=== PATIENT | male | born 1930 | race Caucasian/White ===

== ENCOUNTER 2018-02-26 06:12 | Inpatient (IN) | payer OTHER, MEDICARE ==
[2018-02-26] VITALS (8 sets, daily range): BP systolic 133–150; BP diastolic 56–78; PULSE 67–74; TEMP 36.6–37.4; O2SAT 94–100; Ht 180.3 cm; Wt 94.6 kg
[~2018-02-26] VITALS: Ht 180.3 cm; Wt 94.6 kg
[~2018-02-26 06:12] MED LIST: ACET-1256 PO; ALLO1TAB51 PO; ALPR-411 PO; AMOX875T PO; APR50 PO; ASPCH81 PO; ASTN; ATEN50TA PO; CLBCRM30 EXT; DIPH25CA5 PO; FLM4 PO; LISI-461 PO; LUTE15CA OR; POLY335025 OR; PRCSR90 PO; SIMV20TA2 PO; TRAM-10 PO
--- NOTE | 2018-02-26 06:53 | EMERGENCY ROOM VISIT NOTE ---
History Report prepared by Abida: Angel Salomon Under the Supervision of: Dr. Arnold Sanders M.D. First contact with patient: 06:44 Chief Complaint: VOMITING Stated Complaint: THROWING UP BLOOD Nursing Triage Summary: Pt brought in by EMS. Pt woke up at 3 am with abdominal pain and vomiting blood. Pt vomited blood x 2. Pt alert and oriented. Denies any pain now. Pt reports he was treated a week ago for a sinus infection. History of Present Illness The patient is an 87 year old male with a history of hypertension and kidney issues who presents to the Emergency Room via EMS with complaints of episodes of "spitting up blood" that started around 4 hours ago. He states that he was seen at his doctor's office 3 days ago, due to having trouble spitting up blood this week. The patient says that he has been coughing up bloody mucous. He states that he was given antibiotics, but was not told what was wrong. He did have an x-ray there. The patient's family notes that since last fall, the patient has been having problems with phlegm in the back of his throat and gagging. The patient says that around 0300 this morning, he woke up and was coughing and "blood flew everywhere when coughing". Per the patient's family, there were "big strands of blood", and there were "long strings". The patient adds that he was sweaty this morning, and was lightheaded and dizzy. He denies any chest pain, shortness of breath, pain with breathing, abdominal pain, sore throat, or fevers. The patient notes that his stools are chronically black. He is not on a blood thinner. He notes that he has not had any known recent sick contacts. He has a history of smoking. Source of History: patient, family Onset: Around 4 hours ago Position: other (global) Quality: other ("spitting up blood") Timing: other (episodes) Associated Symptoms: + diaphoresis, + cough, No fevers, No sorethroat, No chest pain, No SOB, No abdominal pain Note: Associated symptoms: Lightheaded, dizzy. Review of Systems See HPI for pertinent positives & negatives. A total of 10 systems reviewed and were otherwise negative. 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 Nurse's notes were reviewed and I agree with. Family History Cancer FH: CAD (coronary artery disease) FATHER (passed at age 48 from [place]) BROTHER (passed in his 70s from [place]) FHx: Parkinson's disease BROTHER Gallbladder disease Hypertension Social History Smoking Status: Former Smoker Alcohol Use: none Marital Status: Housing Status: lives with significant other Occupation Status: retired Current/Historical Medications Scheduled Allopurinol (Zyloprim), 100 MG PO DAILY Amoxicillin & Pot Clavulanate (Augmentin 875-125 mg), 1 TAB PO BID Aspirin (Aspirin Ec), 81 MG PO DAILY Atenolol (Tenormin), 50 MG PO BID Duloxetine HCl (Cymbalta), 1 CAP PO DAILY Hydralazine HCl (Hydralazine HCl), 100 MG PO TID Lisinopril (Zestril), 10 MG PO DAILY Nifedipine (Nifedipine ER), 90 MG PO DAILY Simvastatin (Zocor), 20 MG PO QPM Scheduled PRN Polyethylene Glycol 3350 (Miralax), 17 GM OR DAILY PRN for Constipation Tramadol (Ultram), 50 MG PO Q6 PRN for Pain Allergies Coded Allergies: Iodinated Contrast Media (Verified Allergy, Severe, ANAPHALXIS, 02/26/18) Nitrofurantoin (Verified Allergy, Severe, "throat swelled shut", 02/26/18) Clopidogrel (Verified Allergy, Intermediate, "flu s/s", 02/26/18) Physical Exam Vital Signs Date Time Temp Pulse Resp B/P (MAP) Pulse Ox O2 Delivery O2 Flow Rate FiO2 3/31/18 07:22 64 20 151/57 98 Room Air 02/26/18 06:48 68 02/26/18 06:12 36.6 69 20 142/60 97 Room Air Physical Exam General: Non-ill appearing older male in no acute distress. HEENT: Normal cephalic atraumatic. Pupils are equal round and reactive to light. Extraocular movements are intact. Oropharynx is pink with moist mucous membranes. No swelling of the mouth lips or tongue. Neck: Supple with a midline trachea. No meningeal signs or stiffness, no JVD or bruits. No Stridor. Chest: Clear to auscultation bilaterally. No wheezes or rhonchi. No increased work of breathing. Heart: regular rate and rhythm. Abdomen: Soft nontender, nondistended without rebound guarding or rigidity. Rectal: Melanotic stool which was Guaiac positive. Extremities: No cyanosis clubbing or edema. No calf tenderness or assymetry Spine/Back. Non tender to palpation. No CVA tenderness Skin: Good turgor without rashes. Neurologic exam: Cranial nerves two through 12 are intact. Motor and sensation are intact and symmetrical throughout. Medical Decision & Procedures ER Provider Diagnostic Interpretation: Radiology results as stated below per my review and radiologist interpretation: SINGLE VIEW CHEST CLINICAL HISTORY: Atypical chest pain. FINDINGS: 2 AP, portable, upright chest radiographs are compared to study dated 06/02/2014. Correlation is made with chest CT dated 05/19/2012. The examination is degraded by portable technique and patient rotation. The heart is enlarged and there is atherosclerotic calcification of the thoracic aorta. The pulmonary vasculature is noncongested. Chronic interstitial thickening and elevation of the right hemidiaphragm are similar to previous. Left basilar atelectasis is noted. There is no airspace consolidation or large pleural effusion. No pneumothorax is seen. The skeletal structures are osteopenic. The bony thorax is grossly intact. IMPRESSION: Cardiomegaly with no acute cardiopulmonary abnormality. Electronically signed by: Kobe Salcedo M.D. 02/26/2018 7:22 AM Dictated Date/Time: 02/26/2018 7:[address] SCAN OF THE CHEST, ABDOMEN, AND PELVIS WITHOUT IV CONTRAST CLINICAL HISTORY: Atypical chest pain. Generalized abdominal pain. COMPARISON STUDY: Chest CT dated 05/19/2012. Chest x-ray dated 02/26/2018. Abdominal radiographs dated 06/03/2014. TECHNIQUE: CT scan of the chest, abdomen, and pelvis was performed from the thoracic inlet to the proximal femora. Images are reviewed in the axial, sagittal, and coronal planes. IV contrast was not administered as per the referring clinician. Note that the examination was performed in significantly suboptimal fashion without oral and IV contrast. Automated dose control exposure was utilized. A dose lowering technique was utilized adhering to the principles of ALARA. The abdominal CT is significantly degraded by motion artifact. The abdominal CT is also degraded by streak artifact from extensive lumbar spinal fusion hardware and hip arthroplasties. CT DOSE: 1269.50 mGy.cm FINDINGS: CHEST: Thyroid: Imaged portions of the thyroid gland are normal in size and attenuation. Thoracic aorta: There is advanced atherosclerotic calcification of the thoracic aorta, which is normal in caliber and demonstrates standard 3-vessel arch anatomy. Heart: The heart is top normal in size and without pericardial effusion. The coronary arteries are densely calcified. There is diminished attenuation of the cardiac blood pool as compared to the myocardium suggesting anemia. The pulmonary trunk is normal in caliber. Lungs and pleural spaces: There is elevation of right hemidiaphragm. Mild subpleural reticulation and dependent atelectasis is present at the lung bases. No airspace consolidation or pleural effusion is identified. The trachea and central airways are clear. Scattered calcified granulomas are observed. A 5 mm nodule in the lingula on image #182 is unchanged dating back to 2011 and of doubtful significance. Mediastinum: There is no mediastinal lymphadenopathy. Kamille: Not well assessed without IV contrast. Axillae: There is no axillary lymphadenopathy. Bony thorax: The skeletal structures are osteopenic. No lytic or blastic lesions are identified. ABDOMEN AND PELVIS: Liver: The unenhanced liver is normal in size, contour, and attenuation. There is no intrahepatic or ductal dilatation. Gallbladder: Contracted versus surgically absent. Spleen: Normal in size and attenuation. Pancreas: The unenhanced pancreas is atrophic and grossly unremarkable. Adrenal glands: Unremarkable. Kidneys: The unenhanced kidneys images are atrophic and without hydronephrosis. There are renovascular calcifications. No renal calculi are identified. There is no evidence of contour deforming mass lesion. Abdominal vasculature: The abdominal aorta is normal in course and caliber noting advanced atherosclerotic calcification. Bilateral renal artery stents are identified. Stomach and bowel: A small hiatal hernia is noted. The duodenum is normal in configuration. No bowel obstruction is seen. There are scattered colonic diverticula without CT evidence of acute diverticulitis. The appendix is not identified and reported surgically absent. Peritoneum: There is no intraperitoneal free air or abdominal ascites. There is a small fat-containing umbilical hernia. Lymphadenopathy: None. Pelvic viscera: Evaluation of the pelvis is significantly degraded by streak artifact from bilateral hip arthroplasties. The bladder is normal as visualized. The prostate gland is diminutive versus surgically absent. AP prosthesis is in place. Skeletal structures: The skeletal structures are osteopenic. No lytic or blastic lesions are seen. Bilateral hip arthroplasties are in place. There are postoperative changes from L2 -S1 spinal fusion. IMPRESSION: 1. Significantly suboptimal examination without oral and IV contrast. The abdominal CT is also significantly degraded by streak and motion artifact. 2. There is no airspace consolidation or pleural effusion. 3. There are no acute infectious or inflammatory findings in the abdomen or pelvis. 4. Additional findings as above. Electronically signed by: Kobe Salcedo M.D. 02/26/2018 8:58 AM Dictated Date/Time: 02/26/2018 8:[address] SCAN OF THE CHEST, ABDOMEN, AND PELVIS WITHOUT IV CONTRAST CLINICAL HISTORY: Atypical chest pain. Generalized abdominal pain. COMPARISON STUDY: Chest CT dated 05/19/2012. Chest x-ray dated 02/26/2018. Abdominal radiographs dated 06/03/2014. TECHNIQUE: CT scan of the chest, abdomen, and pelvis was performed from the thoracic inlet to the proximal femora. Images are reviewed in the axial, sagittal, and coronal planes. IV contrast was not administered as per the referring clinician. Note that the examination was performed in significantly suboptimal fashion without oral and IV contrast. Automated dose control exposure was utilized. A dose lowering technique was utilized adhering to the principles of ALARA. The abdominal CT is significantly degraded by motion artifact. The abdominal CT is also degraded by streak artifact from extensive lumbar spinal fusion hardware and hip arthroplasties. CT DOSE: 1269.50 mGy.cm FINDINGS: CHEST: Thyroid: Imaged portions of the thyroid gland are normal in size and attenuation. Thoracic aorta: There is advanced atherosclerotic calcification of the thoracic aorta, which is normal in caliber and demonstrates standard 3-vessel arch anatomy. Heart: The heart is top normal in size and without pericardial effusion. The coronary arteries are densely calcified. There is diminished attenuation of the cardiac blood pool as compared to the myocardium suggesting anemia. The pulmonary trunk is normal in caliber. Lungs and pleural spaces: There is elevation of right hemidiaphragm. Mild subpleural reticulation and dependent atelectasis is present at the lung bases. No airspace consolidation or pleural effusion is identified. The trachea and central airways are clear. Scattered calcified granulomas are observed. A 5 mm nodule in the lingula on image #182 is unchanged dating back to 2012 and of doubtful significance. Mediastinum: There is no mediastinal lymphadenopathy. Kamille: Not well assessed without IV contrast. Axillae: There is no axillary lymphadenopathy. Bony thorax: The skeletal structures are osteopenic. No lytic or blastic lesions are identified. ABDOMEN AND PELVIS: Liver: The unenhanced liver is normal in size, contour, and attenuation. There is no intrahepatic or ductal dilatation. Gallbladder: Contracted versus surgically absent. Spleen: Normal in size and attenuation. Pancreas: The unenhanced pancreas is atrophic and grossly unremarkable. Adrenal glands: Unremarkable. Kidneys: The unenhanced kidneys images are atrophic and without hydronephrosis. There are renovascular calcifications. No renal calculi are identified. There is no evidence of contour deforming mass lesion. Abdominal vasculature: The abdominal aorta is normal in course and caliber noting advanced atherosclerotic calcification. Bilateral renal artery stents are identified. Stomach and bowel: A small hiatal hernia is noted. The duodenum is normal in configuration. No bowel obstruction is seen. There are scattered colonic diverticula without CT evidence of acute diverticulitis. The appendix is not identified and reported surgically absent. Peritoneum: There is no intraperitoneal free air or abdominal ascites. There is a small fat-containing umbilical hernia. Lymphadenopathy: None. Pelvic viscera: Evaluation of the pelvis is significantly degraded by streak artifact from bilateral hip arthroplasties. The bladder is normal as visualized. The prostate gland is diminutive versus surgically absent. AP prosthesis is in place. Skeletal structures: The skeletal structures are osteopenic. No lytic or blastic lesions are seen. Bilateral hip arthroplasties are in place. There are postoperative changes from L2 -S1 spinal fusion. IMPRESSION: 1. Significantly suboptimal examination without oral and IV contrast. The abdominal CT is also significantly degraded by streak and motion artifact. 2. There is no airspace consolidation or pleural effusion. 3. There are no acute infectious or inflammatory findings in the abdomen or pelvis. 4. Additional findings as above. Electronically signed by: Kobe Salcedo M.D. 02/26/2018 8:58 AM Dictated Date/Time: 02/26/2018 8:46 AM Laboratory Results 02/26/18 06:32 Red Blood Count 2.82, Mean Corpuscular Volume 92.6, Mean Corpuscular Hemoglobin 31.6, Mean Corpuscular Hemoglobin Concent 34.1, Mean Platelet Volume 11.2, Neutrophils (%) (Auto) 71.0, Lymphocytes (%) (Auto) 15.7, Monocytes (%) (Auto) 9.4, Eosinophils (%) (Auto) 1.5, Basophils (%) (Auto) 0.2, Neutrophils # (Auto) 8.57, Lymphocytes # (Auto) 1.89, Monocytes # (Auto) 1.13, Eosinophils # (Auto) 0.18, Basophils # (Auto) 0.02 02/26/18 06:32 Test 02/26/18 06:32 02/26/18 07:09 White Blood Count 12.05 K/uL (4.8-10.8) Red Blood Count 2.82 M/uL (4.7-6.1) Hemoglobin 8.9 g/dL (14.0-18.0) Hematocrit 26.1 % (42-52) Mean Corpuscular Volume 92.6 fL (80-100) Mean Corpuscular Hemoglobin 31.6 pg (25-34) Mean Corpuscular Hemoglobin Concent 34.1 g/dl (32-36) Platelet Count 178 K/uL (130-400) Mean Platelet Volume 11.2 fL (7.4-10.4) Neutrophils (%) (Auto) 71.0 % Lymphocytes (%) (Auto) 15.7 % Monocytes (%) (Auto) 9.4 % Eosinophils (%) (Auto) 1.5 % Basophils (%) (Auto) 0.2 % Neutrophils # (Auto) 8.57 K/uL (1.4-6.5) Lymphocytes # (Auto) 1.89 K/uL (1.2-3.4) Monocytes # (Auto) 1.13 K/uL (0.11-0.59) Eosinophils # (Auto) 0.18 K/uL (0-0.5) Basophils # (Auto) 0.02 K/uL (0-0.2) RDW Standard Deviation 48.5 fL (36.4-46.3) RDW Coefficient of Variation 14.5 % (11.5-14.5) Immature Granulocyte % (Auto) 2.2 % Immature Granulocyte # (Auto) 0.26 K/uL (0.00-0.02) Red Blood Cell Morphology Unremarkable Anion Gap 8.0 mmol/L (3-11) Est Creatinine Clear Calc Drug Dose 31.3 ml/min Estimated GFR () 34.9 Estimated GFR (Non- 30.1 BUN/Creatinine Ratio 34.9 (10-20) Calcium Level 7.8 mg/dl (8.5-10.1) Total Bilirubin 0.3 mg/dl (0.2-1) Direct Bilirubin < 0.1 mg/dl (0-0.2) Aspartate Amino Transf (AST/SGOT) 15 U/L (15-37) Alanine Aminotransferase (ALT/SGPT) 20 U/L (12-78) Alkaline Phosphatase 54 U/L (45-117) Total Protein 5.2 gm/dl (6.4-8.2) Albumin 2.6 gm/dl (3.4-5.0) Lipase 137 U/L (73-393) Bedside Troponin I < 0.030 ng/ml (0-0.045) Laboratory studies as stated above per my review. Medications Administered Medications (Trade) Dose Ordered Sig/Juan Carlos Route Start Time Stop Time Status Last Admin Dose Admin Sodium Chloride 250 ml @ 999 mls/hr Q16M STAT IV 02/26/18 06:59 02/26/18 07:14 DC 02/26/18 07:16 999 MLS/HR Sodium Chloride 1,000 ml @ 100 mls/hr Q10H STAT IV 02/26/18 06:59 02/26/18 09:33 DC 02/26/18 07:16 100 MLS/HR Pantoprazole Sodium 80 mg/ Dextrose 120 ml @ 480 mls/hr 0830 IV 02/26/18 08:30 02/26/18 08:44 DC 02/26/18 08:43 480 MLS/HR Ondansetron HCl (Zofran Inj) 4 mg NOW STAT IV 02/26/18 08:43 02/26/18 08:44 DC 02/26/18 08:49 4 MG ECG Per My Interpretation Indication: other (dizzy) Rate (beats per minute): 64 Rhythm: normal sinus Findings: PAC (occasional), no acute ischemic change Comparison ECG Date: compared to June 02 2014, PAC's now present ED Course 0644: Past medical records reviewed. The patient was evaluated in room B6, and a complete history and physical examination were performed. 0659: NSS 1000 ml @ 100 mls/hr IV, NSS 250 ml @ 999 mls/hr IV. 0745: Upon reevaluation, the patient is resting. I discussed the results and treatment plan with the patient. He verbalized agreement of the treatment plan. The patient will be evaluated for further management. 0755: Protonix IV Bolus/Drip 1 ea IV. 0818: Discussed the patient's case with Dr. Jimbo Theodore light truck driver. The patient will be evaluated for further management. 0830: Pantoprazole Sodium 80 mg/Dextrose 120 ml @ 480 mls/hr IV. 0845: Pantoprazole Sodium 40 mg/Dextrose 100 ml @ 200 mls/hr IV. Medical Decision Differentials include, but are not limited to; hemoptysis, hematemesis, sinus infection, pulmonary disease, malignancy, tuberculosis. This patient comes in as described above. He was placed in room B8. She has with the family's described as hemoptysis. He's also had black stool for several weeks. Because of the possible hemoptysis I put on respiratory isolation present . At present, he is asymptomatic. He has stable vital signs. I did a rectal exam and is melanotic stool which is guaiac positive. His hemoglobin has dropped to the 8 range significantly since last blood work. He' s been type and screen. I did put him on Protonix IV bolus and drip. Chest x- ray does not show any cavitary lesions. His BUN and creatinine are elevated compared to baseline. I did order noncontrast CAT scan of the chest and abdomen. I have consulted with Dr. Cobos and I do think he needs to be admitted for GI bleed and possible hemoptysis as well. It may be that the blood is coming from this GI tract or could be 2 separate issues. He will be admitted. CAT scan of the abdomen and chest and pelvis do not reveal any abnormalities. Presacral he nothing cavitary I do not think this is tuberculosis was his drop in hemoglobin this appears to be more of a GI bleed. He was admitted. Medication Reconcilliation Current Medication List: was personally reviewed by me Blood Pressure Screening Patient's blood pressure: Elevated blood pressure Blood pressure disposition: Elevated BP felt to be situational Consults Time Called: 08 Consulting Physician: Dr. Jimbo Theodore light truck driver Returned Call: [id number] Discussed the patient's case with Dr. Jimbo Theodore light truck driver. The patient will be evaluated for further management. Impression Primary Impression: GI bleed Additional Impression: Anemia Scribe Attestation The scribe's documentation has been prepared under my direction and personally reviewed by me in its entirety. I confirm that the note above accurately reflects all work, treatment, procedures, and medical decision making performed by me. Departure Information Dispostion Being Evaluated By Hospitalist Referrals Ninfa Philip M.D. (PCP) Patient Instructions My [facility] Problem Qualifiers Primary Impression: GI bleed GI bleed type/associated pathology: unspecified gastrointestinal hemorrhage type Qualified Codes: K92.2 - Gastrointestinal hemorrhage, unspecified
[2018-02-26] MEDS ORDERED: SODIUM CHLORIDE 0.9% 1000ML 250 ML IV STA (06:59)
[2018-02-26] MEDS ORDERED: SODIUM CHLORIDE 0.9% 1000ML 1,000 ML IV STA (06:59)
[2018-02-26] MEDS ORDERED: LISI-461 PO (07:06)
[2018-02-26] MEDS ORDERED: ASPI81TA28 PO (07:06)
[2018-02-26] MEDS ORDERED: ALLO100T PO (07:06)
[2018-02-26 07:09] LABS: BASO % 0.2 %; BASO ABS # 0.02 K/uL (0-0.2); EOS % 1.5 %; EOS ABS # 0.18 K/uL (0-0.5); HEMATOCRIT 26.1 % (42-52); HEMOGLOBIN 8.9 g/dL (14.0-18.0); IG# 0.26 K/uL (0.00-0.02); LYMPH % 15.7 %; LYMPH ABS # 1.89 K/uL (1.2-3.4); MEAN CELL VOLUME 92.6 fL (80-100); MEAN CORPUSCULAR HEMOGLOBIN 31.6 pg (25-34); MEAN CORPUSCULAR HGB CONC 34.1 g/dl (32-36); MEAN PLATELET VOLUME 11.2 fL (7.4-10.4); MONO % 9.4 %; MONO ABS # 1.13 K/uL (0.11-0.59); NEUT ABS # 8.57 K/uL (1.4-6.5); PLATELET COUNT 178 K/uL (130-400); RED CELL DISTRIBUTION WIDTH CV 14.5 % (11.5-14.5); RED CELL DISTRIBUTION WIDTH SD 48.5 fL (36.4-46.3); WHITE BLOOD COUNT 12.05 K/uL (4.8-10.8)
[2018-02-26 07:16] LABS: ALBUMIN 2.6 gm/dl (3.4-5.0); ALT/SGPT 20 U/L (12-78); BLOOD UREA NITROGEN 69 mg/dl (7-18); CALCIUM 7.8 mg/dl (8.5-10.1); CARBON DIOXIDE 23 mmol/L (21-32); CREATININE 1.96 mg/dl (0.60-1.40); GLUCOSE 104 mg/dl (70-99); LIPASE 137 U/L (73-393); POTASSIUM 5.4 mmol/L (3.5-5.1); SODIUM 141 mmol/L (136-145)
[2018-02-26 07:19] LABS: ALKALINE PHOSPHATASE 54 U/L (45-117); AST/SGOT 15 U/L (15-37); TOTAL PROTEIN 5.2 gm/dl (6.4-8.2)
--- NOTE | 2018-02-26 07:23 | DIAGNOSTIC IMAGING REPORT ---
SINGLE VIEW CHEST CLINICAL HISTORY: Atypical chest pain. FINDINGS: 2 AP, portable, upright chest radiographs are compared to study dated 06/02/2014. Correlation is made with chest CT dated 05/19/2012. The examination is degraded by portable technique and patient rotation. The heart is enlarged and there is atherosclerotic calcification of the thoracic aorta. The pulmonary vasculature is noncongested. Chronic interstitial thickening and elevation of the right hemidiaphragm are similar to previous. Left basilar atelectasis is noted. There is no airspace consolidation or large pleural effusion. No pneumothorax is seen. The skeletal structures are osteopenic. The bony thorax is grossly intact. IMPRESSION: Cardiomegaly with no acute cardiopulmonary abnormality. Electronically signed by: Kobe Salcedo M.D. 02/26/2018 7:22 AM Dictated Date/Time: 02/26/2018 7:21 AM
[2018-02-26] MEDS ORDERED: PANTOprazole INJ 80 MG in DEXTROSE 5% 100ML IV SCH ×2 (08:30→09:45)
[2018-02-26] MEDS ORDERED: ONDANSETRON INJ 2 MG/ML 2 ML VIAL IV STA (08:43)
[2018-02-26] MEDS ORDERED: ONDANSETRON INJ 2 MG/ML 2 ML VIAL IV PRN ×2 (08:45→14:00)
[2018-02-26] MEDS ORDERED: PANTOprazole INJ 40 MG in DEXTROSE 5% 100ML IV SCH ×2 (08:45→10:00)
--- NOTE | 2018-02-26 08:59 | DIAGNOSTIC IMAGING REPORT ---
CT SCAN OF THE CHEST, ABDOMEN, AND PELVIS WITHOUT IV CONTRAST CLINICAL HISTORY: Atypical chest pain. Generalized abdominal pain. COMPARISON STUDY: Chest CT dated 05/19/2012. Chest x-ray dated 02/26/2018. Abdominal radiographs dated 06/03/2014. TECHNIQUE: CT scan of the chest, abdomen, and pelvis was performed from the thoracic inlet to the proximal femora. Images are reviewed in the axial, sagittal, and coronal planes. IV contrast was not administered as per the referring clinician. Note that the examination was performed in significantly suboptimal fashion without oral and IV contrast. Automated dose control exposure was utilized. A dose lowering technique was utilized adhering to the principles of ALARA. The abdominal CT is significantly degraded by motion artifact. The abdominal CT is also degraded by streak artifact from extensive lumbar spinal fusion hardware and hip arthroplasties. CT DOSE: 1269.50 mGy.cm FINDINGS: CHEST: Thyroid: Imaged portions of the thyroid gland are normal in size and attenuation. Thoracic aorta: There is advanced atherosclerotic calcification of the thoracic aorta, which is normal in caliber and demonstrates standard 3-vessel arch anatomy. Heart: The heart is top normal in size and without pericardial effusion. The coronary arteries are densely calcified. There is diminished attenuation of the cardiac blood pool as compared to the myocardium suggesting anemia. The pulmonary trunk is normal in caliber. Lungs and pleural spaces: There is elevation of right hemidiaphragm. Mild subpleural reticulation and dependent atelectasis is present at the lung bases. No airspace consolidation or pleural effusion is identified. The trachea and central airways are clear. Scattered calcified granulomas are observed. A 5 mm nodule in the lingula on image #182 is unchanged dating back to 2011 and of doubtful significance. Mediastinum: There is no mediastinal lymphadenopathy. Kamille: Not well assessed without IV contrast. Axillae: There is no axillary lymphadenopathy. Bony thorax: The skeletal structures are osteopenic. No lytic or blastic lesions are identified. ABDOMEN AND PELVIS: Liver: The unenhanced liver is normal in size, contour, and attenuation. There is no intrahepatic or ductal dilatation. Gallbladder: Contracted versus surgically absent. Spleen: Normal in size and attenuation. Pancreas: The unenhanced pancreas is atrophic and grossly unremarkable. Adrenal glands: Unremarkable. Kidneys: The unenhanced kidneys images are atrophic and without hydronephrosis. There are renovascular calcifications. No renal calculi are identified. There is no evidence of contour deforming mass lesion. Abdominal vasculature: The abdominal aorta is normal in course and caliber noting advanced atherosclerotic calcification. Bilateral renal artery stents are identified. Stomach and bowel: A small hiatal hernia is noted. The duodenum is normal in configuration. No bowel obstruction is seen. There are scattered colonic diverticula without CT evidence of acute diverticulitis. The appendix is not identified and reported surgically absent. Peritoneum: There is no intraperitoneal free air or abdominal ascites. There is a small fat-containing umbilical hernia. Lymphadenopathy: None. Pelvic viscera: Evaluation of the pelvis is significantly degraded by streak artifact from bilateral hip arthroplasties. The bladder is normal as visualized. The prostate gland is diminutive versus surgically absent. AP prosthesis is in place. Skeletal structures: The skeletal structures are osteopenic. No lytic or blastic lesions are seen. Bilateral hip arthroplasties are in place. There are postoperative changes from L2 -S1 spinal fusion. IMPRESSION: 1. Significantly suboptimal examination without oral and IV contrast. The abdominal CT is also significantly degraded by streak and motion artifact. 2. There is no airspace consolidation or pleural effusion. 3. There are no acute infectious or inflammatory findings in the abdomen or pelvis. 4. Additional findings as above. Electronically signed by: Kobe Salcedo M.D. 02/26/2018 8:58 AM Dictated Date/Time: 02/26/2018 8:46 AM
[2018-02-26] MEDS ORDERED: OCTREOTIDE IV BOLUS & DRIP IV STA (09:17)
[2018-02-26] MEDS ORDERED: DULO-24 PO (09:22)
--- NOTE | 2018-02-26 09:42 | History and Physical ---
History & Physical Date & Time of Service: Feb 26, 2018 at 09:19 Chief Complaint: Throwing Up Blood Primary Care Physician: Ninfa Philip M.D. History of Present Illness Source: patient, family, clinic records, hospital records This is an 87 year old male with a PMH of renal artery stenosis s/p bilateral stents, difficult to control hypertension, CKD stage 3, carotid artery stenosis s/p R carotid endarterectomy, hyperlipidemia, previous lumbar surgery and chronic low back pain - presents with a few day history of hemoptysis. As per patient, he went to his primary care because he saw streaks of blood and mucous speckled with blood. He was prescribed prednisone and Augmentin at that time for possible bronchitis and discharged home; he completed his five day course of prednisone. Last evening (02/25), one night prior to arrival, his bleeding acutely worsened. States he woke up with excessive amounts of blood, but is unsure if he was vomiting this up or coughing this up. Does state he noted dark stools for years, but may have become darker in the acute setting. States he had multiple episodes through the night and then presented to the ED. His main complaints this morning were nausea; denies abdominal pain. States he does not drink, and last smoked over 45 years prior. Denies excessive NSAID use; states he uses Tramadol and Tylenol intermittently for chronic low back pain. Noted to have a significant drop in Hgb upon arrival to the ED from one year prior. Stool positive for occult blood. +melena. Started on fluids, Protonix drip, and Zofran for nausea. States he feels weak, dizzy and "lousy". Past Medical/Surgical History Medical Problems: (1) Carotid artery stenosis (2) Carpal tunnel syndrome on both sides (3) CKD (chronic kidney disease), stage II (4) Gout (5) HLD (hyperlipidemia) (6) HTN (hypertension) (7) Ileus (8) Lumbar stenosis with neurogenic claudication (9) Macular degeneration, bilateral (10) Prostate cancer (11) Prostate removal (12) Renal artery stenosis (13) Urinary retention (14) Urinary retention (15) Vomiting and diarrhea Surgical Problems: (1) History of back surgery (2) History of back surgery (3) S/P appendectomy (4) S/P carotid endarterectomy (5) S/P cataract surgery (6) S/P cholecystectomy (7) S/P partial gastrectomy (8) S/P rotator cuff repair (9) S/P total hip arthroplasty Family History Cancer FH: CAD (coronary artery disease) FATHER (passed at age 48 from [place]) BROTHER (passed in his 70s from [place]) FHx: Parkinson's disease BROTHER Gallbladder disease Hypertension Social History Smoking Status: Former Smoker Marital Status: Occupational Status: retired Immunizations History of Influenza Vaccine: Yes Influenza Vaccine Date: Mar 18, 2012 History of Tetanus Vaccine?: Yes Tetanus Immunization Date: Mar 18, 2012 History of Pneumococcal: Yes Pneumococcal Date: Mar 18, 2012 History of Hepatitis B Vaccine: No Allergies Coded Allergies: Iodinated Contrast Media (Verified Allergy, Severe, ANAPHALXIS, 02/26/18) Nitrofurantoin (Verified Allergy, Severe, "throat swelled shut", 02/26/18) Clopidogrel (Verified Allergy, Intermediate, "flu s/s", 02/26/18) Home Medications Scheduled Allopurinol (Zyloprim), 100 MG PO DAILY Aspirin (Aspirin Ec), 81 MG PO DAILY Atenolol (Tenormin), 50 MG PO BID Hydralazine HCl (Hydralazine HCl), 100 MG PO TID Lisinopril (Zestril), 10 MG PO DAILY Nifedipine (Nifedipine ER), 90 MG PO DAILY Simvastatin (Zocor), 20 MG PO QPM Scheduled PRN Polyethylene Glycol 3350 (Miralax), 17 GM OR DAILY PRN for Constipation Tramadol (Ultram), 50 MG PO Q6 PRN for Pain Review of Systems Constitutional: + weakness, + fatigue, No fever, No chills, No sweats, No weight loss Eyes: No worsening of vision ENT: No hearing loss, No trouble swallowing Respiratory: + cough, + sputum, + hemoptysis, No wheezing, No shortness of breath, No dyspnea on exertion, No dyspnea at rest Cardiovascular: No chest pain, No orthopnea, No edema, No palpitations Abdomen: + nausea, + GI bleeding, No pain, No vomiting, No diarrhea, No constipation Musculoskeletal: + joint pain (chronic back pain), No muscle pain Genitourinary - Male: No hematuria, No dysuria, No urinary frequency, No urinary urgency Neurologic: + weakness, + balance problems (secondary to dizziness), No memory loss, No numbness/tingling, No vertigo Psychiatric: No depression symptoms, No anxiety, No insomnia Endocrine: No fatigue, No excessive thirst, No excessive urination Hematologic / Lymphatic: + abnormal bleeding/bruising Integumentary: No rash Allergic / Immunologic: No environmental allergies, No seasonal allergies Physical Exam Vital Signs Date Time Temp Pulse Resp B/P (MAP) Pulse Ox O2 Delivery O2 Flow Rate FiO2 02/26/18 08:44 70 18 178/79 99 Room Air 02/26/18 07:22 64 20 151/57 98 Room Air 02/26/18 06:48 68 02/26/18 06:12 36.6 69 20 142/60 97 Room Air General Appearance: no apparent distress, + pertinent finding (pale, weak appearing) Head: normocephalic, atraumatic Eyes: normal inspection ENT: + pertinent finding (dry mucous membranes; hard of hearing - hearing aid in R ear) Respiratory/Chest: no respiratory distress, no accessory muscle use, + wheezing (diffuse end expiratory wheezing) Cardiovascular: regular rate, rhythm, no edema, no murmur Abdomen/GI: normal bowel sounds, non tender, soft Back: normal inspection, no CVA tenderness, no muscle spasm, normal range of motion Extremities/Musculoskelatal: normal inspection, no calf tenderness, normal capillary refill, no pedal edema, normal range of motion Neurologic/Psych: digital traffic coordinator II-XII nml as tested, no motor/sensory deficits, alert, normal mood/affect, oriented x 3 Skin: normal color Lymphatic: no adenopathy Diagnostics Laboratory Results Results Past 24 Hours Test 02/26/18 06:32 02/26/18 07:09 Range/Units White Blood Count 12.05 4.8-10.8 K/uL Red Blood Count 2.82 4.7-6.1 M/uL Hemoglobin 8.9 14.0-18.0 g/dL Hematocrit 26.1 42-52 % Mean Corpuscular Volume 92.6 80-100 fL Mean Corpuscular Hemoglobin 31.6 25-34 pg Mean Corpuscular Hemoglobin Concent 34.1 32-36 g/dl Platelet Count 178 130-400 K/uL Mean Platelet Volume 11.2 7.4-10.4 fL Neutrophils (%) (Auto) 71.0 % Lymphocytes (%) (Auto) 15.7 % Monocytes (%) (Auto) 9.4 % Eosinophils (%) (Auto) 1.5 % Basophils (%) (Auto) 0.2 % Neutrophils # (Auto) 8.57 1.4-6.5 K/uL Lymphocytes # (Auto) 1.89 1.2-3.4 K/uL Monocytes # (Auto) 1.13 0.11-0.59 K/uL Eosinophils # (Auto) 0.18 0-0.5 K/uL Basophils # (Auto) 0.02 0-0.2 K/uL RDW Standard Deviation 48.5 36.4-46.3 fL RDW Coefficient of Variation 14.5 11.5-14.5 % Immature Granulocyte % (Auto) 2.2 % Immature Granulocyte # (Auto) 0.26 0.00-0.02 K/uL Red Blood Cell Morphology Unremarkable Sodium Level 141 136-145 mmol/L Potassium Level 5.4 3.5-5.1 mmol/L Chloride Level 110 98-107 mmol/L Carbon Dioxide Level 23 21-32 mmol/L Anion Gap 8.0 3-11 mmol/L Blood Urea Nitrogen 69 7-18 mg/dl Creatinine 1.96 0.60-1.40 mg/dl Est Creatinine Clear Calc Drug Dose 31.3 ml/min Estimated GFR () 34.9 Estimated GFR (Non- 30.1 BUN/Creatinine Ratio 34.9 10-20 Random Glucose 104 70-99 mg/dl Calcium Level 7.8 8.5-10.1 mg/dl Total Bilirubin 0.3 0.2-1 mg/dl Direct Bilirubin < 0.1 0-0.2 mg/dl Aspartate Amino Transf (AST/SGOT) 15 15-37 U/L Alanine Aminotransferase (ALT/SGPT) 20 12-78 U/L Alkaline Phosphatase 54 45-117 U/L Total Protein 5.2 6.4-8.2 gm/dl Albumin 2.6 3.4-5.0 gm/dl Lipase 137 73-393 U/L Bedside Troponin I < 0.030 0-0.045 ng/ml Diagnostic Radiology SINGLE VIEW CHEST CLINICAL HISTORY: Atypical chest pain. FINDINGS: 2 AP, portable, upright chest radiographs are compared to study dated 06/02/2014. Correlation is made with chest CT dated 05/19/2012. The examination is degraded by portable technique and patient rotation. The heart is enlarged and there is atherosclerotic calcification of the thoracic aorta. The pulmonary vasculature is noncongested. Chronic interstitial thickening and elevation of the right hemidiaphragm are similar to previous. Left basilar atelectasis is noted. There is no airspace consolidation or large pleural effusion. No pneumothorax is seen. The skeletal structures are osteopenic. The bony thorax is grossly intact. IMPRESSION: Cardiomegaly with no acute cardiopulmonary abnormality. CT SCAN OF THE CHEST, ABDOMEN, AND PELVIS WITHOUT IV CONTRAST CLINICAL HISTORY: Atypical chest pain. Generalized abdominal pain. COMPARISON STUDY: Chest CT dated 05/19/2012. Chest x-ray dated 02/26/2018. Abdominal radiographs dated 06/03/2014. TECHNIQUE: CT scan of the chest, abdomen, and pelvis was performed from the thoracic inlet to the proximal femora. Images are reviewed in the axial, sagittal, and coronal planes. IV contrast was not administered as per the referring clinician. Note that the examination was performed in significantly suboptimal fashion without oral and IV contrast. Automated dose control exposure was utilized. A dose lowering technique was utilized adhering to the principles of ALARA. The abdominal CT is significantly degraded by motion artifact. The abdominal CT is also degraded by streak artifact from extensive lumbar spinal fusion hardware and hip arthroplasties. CT DOSE: 1269.50 mGy.cm FINDINGS: CHEST: Thyroid: Imaged portions of the thyroid gland are normal in size and attenuation. Thoracic aorta: There is advanced atherosclerotic calcification of the thoracic aorta, which is normal in caliber and demonstrates standard 3-vessel arch anatomy. Heart: The heart is top normal in size and without pericardial effusion. The coronary arteries are densely calcified. There is diminished attenuation of the cardiac blood pool as compared to the myocardium suggesting anemia. The pulmonary trunk is normal in caliber. Lungs and pleural spaces: There is elevation of right hemidiaphragm. Mild subpleural reticulation and dependent atelectasis is present at the lung bases. No airspace consolidation or pleural effusion is identified. The trachea and central airways are clear. Scattered calcified granulomas are observed. A 5 mm nodule in the lingula on image #182 is unchanged dating back to 2011 and of doubtful significance. Mediastinum: There is no mediastinal lymphadenopathy. Kamille: Not well assessed without IV contrast. Axillae: There is no axillary lymphadenopathy. Bony thorax: The skeletal structures are osteopenic. No lytic or blastic lesions are identified. ABDOMEN AND PELVIS: Liver: The unenhanced liver is normal in size, contour, and attenuation. There is no intrahepatic or ductal dilatation. Gallbladder: Contracted versus surgically absent. Spleen: Normal in size and attenuation. Pancreas: The unenhanced pancreas is atrophic and grossly unremarkable. Adrenal glands: Unremarkable. Kidneys: The unenhanced kidneys images are atrophic and without hydronephrosis. There are renovascular calcifications. No renal calculi are identified. There is no evidence of contour deforming mass lesion. Abdominal vasculature: The abdominal aorta is normal in course and caliber noting advanced atherosclerotic calcification. Bilateral renal artery stents are identified. Stomach and bowel: A small hiatal hernia is noted. The duodenum is normal in configuration. No bowel obstruction is seen. There are scattered colonic diverticula without CT evidence of acute diverticulitis. The appendix is not identified and reported surgically absent. Peritoneum: There is no intraperitoneal free air or abdominal ascites. There is a small fat-containing umbilical hernia. Lymphadenopathy: None. Pelvic viscera: Evaluation of the pelvis is significantly degraded by streak artifact from bilateral hip arthroplasties. The bladder is normal as visualized. The prostate gland is diminutive versus surgically absent. AP prosthesis is in place. Skeletal structures: The skeletal structures are osteopenic. No lytic or blastic lesions are seen. Bilateral hip arthroplasties are in place. There are postoperative changes from L2 -S1 spinal fusion. IMPRESSION: 1. Significantly suboptimal examination without oral and IV contrast. The abdominal CT is also significantly degraded by streak and motion artifact. 2. There is no airspace consolidation or pleural effusion. 3. There are no acute infectious or inflammatory findings in the abdomen or pelvis. 4. Additional findings as above. CT SCAN OF THE CHEST, ABDOMEN, AND PELVIS WITHOUT IV CONTRAST CLINICAL HISTORY: Atypical chest pain. Generalized abdominal pain. COMPARISON STUDY: Chest CT dated 05/19/2012. Chest x-ray dated 02/26/2018. Abdominal radiographs dated 06/03/2014. TECHNIQUE: CT scan of the chest, abdomen, and pelvis was performed from the thoracic inlet to the proximal femora. Images are reviewed in the axial, sagittal, and coronal planes. IV contrast was not administered as per the referring clinician. Note that the examination was performed in significantly suboptimal fashion without oral and IV contrast. Automated dose control exposure was utilized. A dose lowering technique was utilized adhering to the principles of ALARA. The abdominal CT is significantly degraded by motion artifact. The abdominal CT is also degraded by streak artifact from extensive lumbar spinal fusion hardware and hip arthroplasties. CT DOSE: 1269.50 mGy.cm FINDINGS: CHEST: Thyroid: Imaged portions of the thyroid gland are normal in size and attenuation. Thoracic aorta: There is advanced atherosclerotic calcification of the thoracic aorta, which is normal in caliber and demonstrates standard 3-vessel arch anatomy. Heart: The heart is top normal in size and without pericardial effusion. The coronary arteries are densely calcified. There is diminished attenuation of the cardiac blood pool as compared to the myocardium suggesting anemia. The pulmonary trunk is normal in caliber. Lungs and pleural spaces: There is elevation of right hemidiaphragm. Mild subpleural reticulation and dependent atelectasis is present at the lung bases. No airspace consolidation or pleural effusion is identified. The trachea and central airways are clear. Scattered calcified granulomas are observed. A 5 mm nodule in the lingula on image #182 is unchanged dating back to 2011 and of doubtful significance. Mediastinum: There is no mediastinal lymphadenopathy. Kamille: Not well assessed without IV contrast. Axillae: There is no axillary lymphadenopathy. Bony thorax: The skeletal structures are osteopenic. No lytic or blastic lesions are identified. ABDOMEN AND PELVIS: Liver: The unenhanced liver is normal in size, contour, and attenuation. There is no intrahepatic or ductal dilatation. Gallbladder: Contracted versus surgically absent. Spleen: Normal in size and attenuation. Pancreas: The unenhanced pancreas is atrophic and grossly unremarkable. Adrenal glands: Unremarkable. Kidneys: The unenhanced kidneys images are atrophic and without hydronephrosis. There are renovascular calcifications. No renal calculi are identified. There is no evidence of contour deforming mass lesion. Abdominal vasculature: The abdominal aorta is normal in course and caliber noting advanced atherosclerotic calcification. Bilateral renal artery stents are identified. Stomach and bowel: A small hiatal hernia is noted. The duodenum is normal in configuration. No bowel obstruction is seen. There are scattered colonic diverticula without CT evidence of acute diverticulitis. The appendix is not identified and reported surgically absent. Peritoneum: There is no intraperitoneal free air or abdominal ascites. There is a small fat-containing umbilical hernia. Lymphadenopathy: None. Pelvic viscera: Evaluation of the pelvis is significantly degraded by streak artifact from bilateral hip arthroplasties. The bladder is normal as visualized. The prostate gland is diminutive versus surgically absent. AP prosthesis is in place. Skeletal structures: The skeletal structures are osteopenic. No lytic or blastic lesions are seen. Bilateral hip arthroplasties are in place. There are postoperative changes from L2 -S1 spinal fusion. IMPRESSION: 1. Significantly suboptimal examination without oral and IV contrast. The abdominal CT is also significantly degraded by streak and motion artifact. 2. There is no airspace consolidation or pleural effusion. 3. There are no acute infectious or inflammatory findings in the abdomen or pelvis. 4. Additional findings as above. EKG Sinus rhythm with Premature supraventricular complexes Otherwise normal ECG Impression Assessment and Plan This is an 87 year old male with a PMH of renal artery stenosis s/p bilateral stents, difficult to control hypertension, CKD stage 3, carotid artery stenosis s/p R carotid endarterectomy, hyperlipidemia, previous lumbar surgery and chronic low back pain - presents with a few day history of hemoptysis vs. hematemesis and melena with acute blood loss anemia. Upper GI Bleed Acute Blood Loss Anemia - Hgb one year prior was around 14, today is 8.9 - patient states he's had excessive bleeding episodes the past day; possible hematemesis vs. hemoptysis - also c/o melena - due to the drop in Hgb, this seems more like an upper GI bleed - started on Protonix drip; will add Octreotide drip - started on empiric Rocephin - IVFs for fluid resuscitation - check H/H q6 - hold aspirin Acute Kidney Injury superimposed on CKD stage 3 - creatinine up to 1.9 - baseline creatinine is around 1.7 - giving IVFs, monitor Hypertension in the setting of Renal Artery Stenosis - s/p bilateral stents - hold SEVERINO-I due to kidney injury - will continue b-ryan, CCB, and Hydralazine for blood pressure, but monitor closely DVT ppx - SCDs FULL CODE Resuscitation Status VTE Prophylaxis Will order VTE Prophylaxis: Yes
[2018-02-26] MEDS: SODIUM CHLORIDE 0.9% 1000ML 1,000 ML IV SCH ×2 (09:43→20:38)
[2018-02-26] MEDS ORDERED: OCTREOTIDE ACETATE INJ 100 MCG in SYR 9 ML PHA PREPARED IV SCH (09:45)
[2018-02-26] MEDS ORDERED: OCTREOTIDE ACETATE INJ 500 MCG in NSS 100ML IV SCH (10:00)
[2018-02-26] MEDS ORDERED: CEFTRIAXONE SOD INJ 1 GM in DEXTROSE 5% ADD-VANTAGE 50ML 50 ML IV SCH (10:00)
[2018-02-26] MEDS: NIFEdipine 30 MG CR TAB PO SCH (11:23)
[2018-02-26 12:13] LABS: HEMATOCRIT 24.6 % (42-52); HEMOGLOBIN 8.3 g/dL (14.0-18.0)
--- NOTE | 2018-02-26 13:31 | Gastrointestinal Consultation ---
Gastrointestinal Consultation Date of Consultation: Feb 26, 2018 Attending Physician: Samra Pack Consulting Physician: Faina Choi Reason for Consultation: GI bleed History of Present Illness Patient is a 87 year old male with medical comorbids of HTN, renal artery stenosis s/p bilateral stents, CKD stage 3, carotid artery stenosis s/p R carotid endarterectomy, hyperlipidemia, previous lumbar surgery and chronic low back pain, admitted with hematemesis Vs Hemoptysis. 2 Weeks ago had small episode of hemoptysis, thought he had bronchitis and treated with steroids and ABx. Today had large amount of hematemesis, bright red blood with clots. Stool has been black for some time. Denies any nausea, vomiting, abdominal pain, diarrhea or constipation. No similar episode in the past. No weight loss or jaundice. No NSAIDs use. Past Medical Hx Carotid artery stenosis, Carpal tunnel syndrome on both sides, CKD (chronic kidney disease), stage II, Gout, HLD (hyperlipidemia), Prostate cancer Surgical Hx: (1) History of back surgery (2) History of back surgery (3) S/P appendectomy (4) S/P carotid endarterectomy (5) S/P cataract surgery (6) S/P cholecystectomy (7) S/P partial gastrectomy (8) S/P rotator cuff repair (9) S/P total hip arthroplasty Past Medical/Surgical History Medical Problems: (1) Anemia Status: Acute (2) GI bleed Status: Acute (3) Vomiting and diarrhea Status: Acute Family History Cancer FH: CAD (coronary artery disease) FATHER (passed at age 48 from [place]) BROTHER (passed in his 70s from [place]) FHx: Parkinson's disease BROTHER Gallbladder disease Hypertension Social History Smoking Status: Never Smoker Alcohol Use: none Marital Status: Housing Status: lives with significant other Occupation Status: retired Allergies Coded Allergies: Iodinated Contrast Media (Verified Allergy, Severe, ANAPHALXIS, 02/26/18) Nitrofurantoin (Verified Allergy, Severe, "throat swelled shut", 02/26/18) Clopidogrel (Verified Allergy, Intermediate, "flu s/s", 02/26/18) Current Medications Home Meds and Scripts Medications Dose Route/Sig Max Daily Dose Days Date Category Augmentin 875-125 mg (Amoxicillin & Pot Clavulanate) 1 Tab Tab 1 Tab PO BID 10 02/26/18 Reported Cymbalta (Duloxetine HCl) 20 Mg Cap 1 Cap PO DAILY 02/26/18 Reported Aspirin Ec (Aspirin) 81 Mg Tab 81 Mg PO DAILY 02/26/18 Reported Zestril (Lisinopril) 10 Mg Tab 10 Mg PO DAILY 02/26/18 Reported Zyloprim (Allopurinol) 100 Mg Tab 100 Mg PO DAILY 02/26/18 Reported Ultram (Tramadol HCl) 50 Mg Tab 50 Mg PO Q6 PRN 06/02/14 Reported Miralax (Polyethylene Glycol 3350) 1 Pow Pow 17 Gm OR DAILY PRN 05/24/14 Reported Nifedipine ER (Nifedipine) 90 Mg Tabcr 90 Mg PO DAILY 05/17/14 Reported Hydralazine HCl 50 Mg Tab 100 Mg PO TID 05/17/14 Reported Zocor (Simvastatin) 20 Mg Tab 20 Mg PO QPM 05/17/14 Reported Tenormin (Atenolol) 50 Mg Tab 50 Mg PO BID 05/18/12 Reported Review of Systems Constitutional: No fever, No chills Eyes: No worsening of vision, No eye pain ENT: No hearing loss Respiratory: No cough, No sputum Cardiac: No chest pain, No orthopnea Abdomen: + see HPI Musculoskeletal: No joint pain, No swelling Male : No dysuria Neuro: No weakness, No numbness/tingling Psych: No depression symptoms Heme: No abnormal bleeding/bruising Endo: No fatigue Skin: No rash, No itch Physical Exam Date Time Temp Pulse Resp B/P (MAP) Pulse Ox O2 Delivery O2 Flow Rate FiO2 02/26/18 12:00 Room Air 02/26/18 11:46 36.7 69 18 136/67 (90) 96 Room Air 02/26/18 09:51 36.9 72 20 141/62 95 Room Air 02/26/18 08:44 70 18 178/79 99 Room Air 02/26/18 07:22 64 20 151/57 98 Room Air 02/26/18 06:48 68 02/26/18 06:12 36.6 69 20 142/60 97 Room Air General Appearance: no apparent distress Eyes: PERRL ENT: pharynx normal Neck: supple, no JVD Respiratory/Chest: lungs clear, normal breath sounds, no accessory muscle use Cardiovascular: regular rate, rhythm Abdomen: normal bowel sounds, non tender, soft Extremities: non-tender Neurologic/Psych: oriented x 3 Skin: no rash Laboratory Results Last 24 Hours Test 02/26/18 06:32 02/26/18 07:09 02/26/18 11:49 White Blood Count 12.05 K/uL Red Blood Count 2.82 M/uL Hemoglobin 8.9 g/dL 8.3 g/dL Hematocrit 26.1 % 24.6 % Mean Corpuscular Volume 92.6 fL Mean Corpuscular Hemoglobin 31.6 pg Mean Corpuscular Hemoglobin Concent 34.1 g/dl Platelet Count 178 K/uL Mean Platelet Volume 11.2 fL Neutrophils (%) (Auto) 71.0 % Lymphocytes (%) (Auto) 15.7 % Monocytes (%) (Auto) 9.4 % Eosinophils (%) (Auto) 1.5 % Basophils (%) (Auto) 0.2 % Neutrophils # (Auto) 8.57 K/uL Lymphocytes # (Auto) 1.89 K/uL Monocytes # (Auto) 1.13 K/uL Eosinophils # (Auto) 0.18 K/uL Basophils # (Auto) 0.02 K/uL RDW Standard Deviation 48.5 fL RDW Coefficient of Variation 14.5 % Immature Granulocyte % (Auto) 2.2 % Immature Granulocyte # (Auto) 0.26 K/uL Red Blood Cell Morphology Unremarkable Sodium Level 141 mmol/L Potassium Level 5.4 mmol/L Chloride Level 110 mmol/L Carbon Dioxide Level 23 mmol/L Anion Gap 8.0 mmol/L Blood Urea Nitrogen 69 mg/dl Creatinine 1.96 mg/dl Est Creatinine Clear Calc Drug Dose 31.3 ml/min Estimated GFR () 34.9 Estimated GFR (Non- 30.1 BUN/Creatinine Ratio 34.9 Random Glucose 104 mg/dl Calcium Level 7.8 mg/dl Total Bilirubin 0.3 mg/dl Direct Bilirubin < 0.1 mg/dl Aspartate Amino Transf (AST/SGOT) 15 U/L Alanine Aminotransferase (ALT/SGPT) 20 U/L Alkaline Phosphatase 54 U/L Total Protein 5.2 gm/dl Albumin 2.6 gm/dl Lipase 137 U/L Bedside Troponin I < 0.030 ng/ml Impression Patient is a 87 year old male with significant drop in H/H and large amount of Hematemesis Vs Hemoptysis. Will need EGD to r/o UGIB. Plan EGD today. IV PPI Avoid NSAIDs Monitor H/H Transfuse as needed. Pulmonary consult if EGD is normal.
[2018-02-26] MEDS ORDERED: HYDROmorphone INJ 2 MG/ML SYR/VIAL IV PRN (14:00)
[2018-02-26] MEDS ORDERED: NALOXONE HCL 0.4 MG/1 ML VIAL/CARP IV PRN (14:00)
[2018-02-26] MEDS ORDERED: MEPERIDINE HCL 25 MG/ML CARP IV PRN (14:00)
[2018-02-26] MEDS ORDERED: FLUMAZENIL 0.1 MG/1 ML 10 ML VIAL IV PRN (14:00)
[2018-02-26] MEDS ORDERED: EpHEDrine SULFATE INJ 50 MG/ML AMP IV PRN (14:00)
[2018-02-26] MEDS ORDERED: LABETALOL HCL IV 5 MG/ML 20ML IV PRN (14:00)
[2018-02-26] MEDS ORDERED: ATROPINE SULFATE 0.1 MG/ML 5ML SYR IV PRN (14:00)
[2018-02-26] MEDS ORDERED: PHENYLEPHRINE 100MCG/ML 5ML SYR IV PRN (14:00)
[2018-02-26] MEDS ORDERED: FENTANYL CITRATE INJ 50 MCG/1 ML 2 ML VIAL IV PRN (14:00)
[2018-02-26] MEDS ORDERED: LIDOCAINE HCL 2% 2 ML VIAL (20MG/ML) ONE (14:12)
[2018-02-26] MEDS ORDERED: PROPOFOL IV EMULSION 10 MG/ML 20 ML VIAL IV ONE (14:12)
--- NOTE | 2018-02-26 14:25 | [facility] Post Operative Brief Note ---
Immediate Operative Summary Operative Date Feb 26, 2018. Pre-Operative Diagnosis Hematemesis Post-Operative Diagnosis Gastroesophageal Ulcer Procedure(s) Performed Esophagogastroduodenoscopy Surgeon Dr. Samra Pack [employer] Surgeon(s) none Estimated Blood Loss 0mL Findings See Below Multiple cratered esophageal ulcers with visible vessel Specimens per endoscopy staff Anesthesia Type MAC
--- NOTE | 2018-02-26 14:43 | Anesthesiology Progress Note ---
Anesthesia Post Op Note Date & Time Feb 26, 2018 at 14:43 Vital Signs Pain Intensity: 0.0 Vital Signs Past 12 Hours Date Time Temp Pulse Resp B/P (MAP) Pulse Ox O2 Delivery O2 Flow Rate FiO2 02/26/18 14:31 38.0 70 14 116/51 95 Room Air 02/26/18 12:00 Room Air 02/26/18 11:46 36.7 69 18 136/67 (90) 96 Room Air 02/26/18 09:51 36.9 72 20 141/62 95 Room Air 02/26/18 08:44 70 18 178/79 99 Room Air 02/26/18 07:22 64 20 151/57 98 Room Air 02/26/18 06:48 68 02/26/18 06:12 36.6 69 20 142/60 97 Room Air Notes Mental Status: alert / awake / arousable, participated in evaluation Pt Amnestic to Procedure: Yes Nausea / Vomiting: adequately controlled Pain: adequately controlled Airway Patency, RR, SpO2: stable & adequate BP & HR: stable & adequate Hydration State: stable & adequate Anesthetic Complications: no major complications apparent
--- NOTE | 2018-02-26 15:07 | GI REPORT ---
Procedure Date: 02/26/2018 1:41 PM Procedure: Upper GI endoscopy Indications: Hematemesis Medicines: Monitored Anesthesia Care Complications: No immediate complications. Estimated Blood Loss: Estimated blood loss: none. Procedure: Pre-Anesthesia Assessment: - Prior to the procedure, a History and Physical was performed, and patient medications and allergies were reviewed. The patient is competent. The risks and benefits of the procedure and the sedation options and risks were discussed with the patient. All questions were answered and informed consent was obtained. Patient identification and proposed procedure were verified by the physician and the nurse in the procedure room. Mental Status Examination: alert and oriented. Airway Examination: normal oropharyngeal airway and neck mobility. Respiratory Examination: clear to auscultation. CV Examination: normal. ASA Grade Assessment: III - A patient with severe systemic disease. After reviewing the risks and benefits, the patient was deemed in satisfactory condition to undergo the procedure. The anesthesia plan was to use monitored anesthesia care (MAC). Immediately prior to administration of medications, the patient was re-assessed for adequacy to receive sedatives. The heart rate, respiratory rate, oxygen saturations, blood pressure, adequacy of pulmonary ventilation, and response to care were monitored throughout the procedure. The physical status of the patient was re-assessed after the procedure. After obtaining informed consent, the endoscope was passed under direct vision. Throughout the procedure, the patient's blood pressure, pulse, and oxygen saturations were monitored continuously. The scope was introduced through the anus and advanced to the third part of duodenum. The upper GI endoscopy was accomplished without difficulty. The patient tolerated the procedure well. Findings: Three cratered esophageal ulcers and stigmata of recent bleeding were found at the gastroesophageal junction. The largest lesion was 15 mm in largest dimension and had a visible vessel. Coagulation for hemostasis using bipolar probe was successful. Evidence of a patent Billroth I gastroduodenostomy was found. The gastroduodenal anastomosis was characterized by healthy appearing mucosa. This was traversed. Hematin (altered blood/ffivyn-wkaerd-eynl material) was found in the gastric body. One non-bleeding superficial duodenal ulcer with no stigmata of bleeding was found in the duodenal bulb. The lesion was 5 mm in largest dimension. The second portion of the duodenum and third portion of the duodenum were normal. Impression: - Esophageal ulcers. Treated with bipolar cautery. - Patent Billroth I gastroduodenostomy was found, characterized by healthy appearing mucosa. - Hematin (altered blood/jdhsas-gdmqck-xzbn material) in the gastric body. - One non-bleeding duodenal ulcer with no stigmata of bleeding. - Normal second portion of the duodenum and third portion of the duodenum. - No specimens collected. Recommendation: - Return patient [facility] for [facility] care. - Clear liquid diet today. - No aspirin, ibuprofen, naproxen, or other non-steroidal anti-inflammatory drugs. - Resume low dose aspirin after 5 days, need to change to enteric coated fomula. - Avoid medication that may potentially cause pill induced esophagitis. - Follow an antireflux regimen. - Use a proton pump inhibitor IV daily for 2 days then change to Protonix (pantoprazole) 40 mg PO BID for 3 months. - Use sucralfate suspension 1 gram PO QID for 2 weeks. - Repeat upper endoscopy in 2 - 3 months to check healing. - Monitor H/H, transfuse as needed. - Check stool for H.Pylori Ag. Samra Pack MD 02/26/2018 3:07:26 PM This report has been signed electronically. Note Initiated On: 02/26/2018 1:41 PM I attest to the content of the Intraoperative Record and orders documented therein, exceptions below
--- NOTE | 2018-02-26 15:19 | Gastroenterology Progress Note ---
Gastroenterology Progress Note Patient underwent EGD, tolerated well. Findings: - Esophageal ulcers. Treated with bipolar cautery. - Patent Billroth I gastroduodenostomy was found, characterized by healthy appearing mucosa. - Hematin (altered blood/ncvmyq-twpagw-wdic material) in the gastric body. - One non-bleeding duodenal ulcer with no stigmata of bleeding. - Normal second portion of the duodenum and third portion of the duodenum. Recommendation: - Return patient to [facility] for ongoing care. - Clear liquid diet today. - No aspirin, ibuprofen, naproxen, or other non-steroidal anti-inflammatory drugs. - Resume low dose aspirin after 5 days, need to change to enteric coated formula. - Avoid medication that may potentially cause pill induced esophagitis. - Follow an antireflux regimen. - Use a proton pump inhibitor IV daily for 2 days then change to Protonix ( pantoprazole) 40 mg PO BID for 3 months. - Use sucralfate suspension 1 gram PO QID for 2 weeks. - Repeat upper endoscopy in 2 - 3 months to check healing. - Monitor H/H, transfuse as needed. - Check stool for H.Pylori Ag.
[2018-02-26] MEDS: PANTOprazole INJ 40 MG in DEXTROSE 5% 100ML IV SCH ×3 (15:32→23:36)
[2018-02-26] MEDS ORDERED: NO NSAIDS SCH (15:45)
[2018-02-26 15:46] LABS: HEMATOCRIT 24.9 % (42-52); HEMOGLOBIN 8.4 g/dL (14.0-18.0)
[2018-02-26] MEDS: SUCRALFATE 1 GM/10 ML UDC PO SCH ×2 (16:49→20:38)
[2018-02-26 21:24] LABS: HEMATOCRIT 23.2 % (42-52); HEMOGLOBIN 7.9 g/dL (14.0-18.0)
[2018-02-27] VITALS (9 sets, daily range): BP systolic 119–155; BP diastolic 55–75; PULSE 61–71; TEMP 36.4–37.3; O2SAT 94–99
[2018-02-27 03:22] LABS: HEMATOCRIT 26.5 % (42-52); HEMOGLOBIN 9.1 g/dL (14.0-18.0); MEAN CELL VOLUME 90.1 fL (80-100); MEAN CORPUSCULAR HGB CONC 34.3 g/dl (32-36); MEAN PLATELET VOLUME 10.8 fL (7.4-10.4); PLATELET COUNT 149 K/uL (130-400); RED CELL DISTRIBUTION WIDTH CV 15.9 % (11.5-14.5); RED CELL DISTRIBUTION WIDTH SD 52.1 fL (36.4-46.3); WHITE BLOOD COUNT 8.76 K/uL (4.8-10.8)
[2018-02-27 03:42] LABS: BLOOD UREA NITROGEN 59 mg/dl (7-18); CALCIUM 7.7 mg/dl (8.5-10.1); CARBON DIOXIDE 21 mmol/L (21-32); CREATININE 1.82 mg/dl (0.60-1.40); GLUCOSE 115 mg/dl (70-99); POTASSIUM 4.5 mmol/L (3.5-5.1); SODIUM 140 mmol/L (136-145)
[2018-02-27] MEDS: PANTOprazole INJ 40 MG in DEXTROSE 5% 100ML IV SCH (05:34)
[2018-02-27] MEDS: SUCRALFATE 1 GM/10 ML UDC PO SCH ×4 (08:12→20:43)
[2018-02-27] MEDS: NIFEdipine 30 MG CR TAB PO SCH (08:14)
[2018-02-27 09:24] LABS: HEMATOCRIT 25.1 % (42-52); HEMOGLOBIN 8.7 g/dL (14.0-18.0)
--- NOTE | 2018-02-27 09:30 | Progress Note ---
Subjective Date of Service: Feb 27, 2018. Subjective Pt evaluation today including: conversation w/ patient, physical exam, lab review, review of studies, review of inpatient medication list Saw/examined the patient in room 207 No problems/issues to note today Denies nausea/vomiting/diarrhea Problem List Medical Problems: (1) Anemia Status: Acute (2) GI bleed Status: Acute (3) Vomiting and diarrhea Status: Acute Review of Systems Constitutional: + weakness, No fever, No chills Respiratory: No cough, No sputum, No shortness of breath Cardiac: No chest pain Abdomen: No pain, No nausea, No vomiting, No diarrhea Medications Current Inpatient Medications Medications (Trade) Dose Ordered Sig/Juan Carlos Route Start Time Stop Time Status Last Admin Dose Admin Ondansetron HCl (Zofran Inj) 4 mg Q6H PRN IV 02/26/18 08:45 03/28/18 08:44 Atenolol (Tenormin Tab) 50 mg BID PO 02/26/18 09:00 03/28/18 08:59 02/27/18 08:13 50 MG Hydralazine HCl (Apresoline Tab) 100 mg TID PO 02/26/18 09:00 03/28/18 08:59 02/27/18 08:13 100 MG Nifedipine (Procardia Xl Tab) 90 mg DAILY PO 02/26/18 09:00 03/28/18 08:59 02/27/18 08:14 90 MG Pantoprazole Sodium 40 mg/ Dextrose 100 ml @ 20 mls/hr Q5H IV 02/26/18 14:00 03/28/18 13:59 02/27/18 05:34 20 MLS/HR Sucralfate (Carafate Susp) 1 gm QID PO 02/26/18 17:00 03/28/18 16:59 02/27/18 08:12 1 GM Miscellaneous Medication (No Nsaids) 1 ea UD N/A 02/26/18 15:45 03/28/18 15:44 Objective Vital Signs Date Time Temp Pulse Resp B/P (MAP) Pulse Ox O2 Delivery O2 Flow Rate FiO2 02/27/18 07:45 36.9 66 16 127/58 (81) 96 Room Air 02/27/18 04:00 Room Air 02/27/18 03:53 37.0 61 18 155/64 (94) 94 Room Air 02/27/18 01:57 37.2 63 20 131/55 97 02/27/18 01:25 37.3 67 19 134/55 97 02/27/18 00:25 37.3 67 16 148/75 94 02/26/18 23:59 Room Air 02/26/18 23:25 37.1 70 18 150/66 96 02/26/18 22:55 37.4 67 17 147/61 96 02/26/18 22:40 37.4 69 18 148/61 95 02/26/18 20:00 Room Air 02/26/18 19:53 36.6 71 20 139/56 (83) 94 Room Air 02/26/18 16:15 74 20 146/69 (94) 96 Room Air 02/26/18 16:00 Room Air 02/26/18 15:30 36.7 70 18 133/78 (96) 100 Room Air 02/26/18 14:50 37.2 71 16 150/82 98 Room Air 02/26/18 14:40 76 18 116/58 97 Room Air 02/26/18 14:31 38.0 70 14 116/51 95 Room Air 02/26/18 12:00 Room Air 02/26/18 11:46 36.7 69 18 136/67 (90) 96 Room Air 02/26/18 09:51 36.9 72 20 141/62 95 Room Air Physical Exam General Appearance: no apparent distress Respiratory/Chest: lungs clear, normal breath sounds, no respiratory distress, no accessory muscle use Cardiovascular: regular rate, rhythm, no edema, no murmur Abdomen: normal bowel sounds, non tender, soft Laboratory Results Last 24 Hours Test 02/26/18 11:49 02/26/18 15:31 02/26/18 21:14 02/26/18 21:15 Hemoglobin 8.3 g/dL 8.4 g/dL 7.9 g/dL Hematocrit 24.6 % 24.9 % 23.2 % Troponin I < 0.015 ng/ml < 0.015 ng/ml Test 02/27/18 03:08 02/27/18 09:07 White Blood Count 8.76 K/uL Red Blood Count 2.94 M/uL Hemoglobin 9.1 g/dL 8.7 g/dL Hematocrit 26.5 % 25.1 % Mean Corpuscular Volume 90.1 fL Mean Corpuscular Hemoglobin 31.0 pg Mean Corpuscular Hemoglobin Concent 34.3 g/dl RDW Standard Deviation 52.1 fL RDW Coefficient of Variation 15.9 % Platelet Count 149 K/uL Mean Platelet Volume 10.8 fL Sodium Level 140 mmol/L Potassium Level 4.5 mmol/L Chloride Level 112 mmol/L Carbon Dioxide Level 21 mmol/L Anion Gap 7.0 mmol/L Blood Urea Nitrogen 59 mg/dl Creatinine 1.82 mg/dl Est Creatinine Clear Calc Drug Dose 34.9 ml/min Estimated GFR () 38.1 Estimated GFR (Non- 32.9 BUN/Creatinine Ratio 32.4 Random Glucose 115 mg/dl Calcium Level 7.7 mg/dl Troponin I < 0.015 ng/ml Assessment and Plan This is an 87 year old male with a PMH of renal artery stenosis s/p bilateral stents, difficult to control hypertension, CKD stage 3, carotid artery stenosis s/p R carotid endarterectomy, hyperlipidemia, previous lumbar surgery and chronic low back pain - presents with a few day history of hemoptysis vs. hematemesis and melena with acute blood loss anemia. Upper GI Bleed - Esophageal Ulcers Acute Blood Loss Anemia 02/27 - s/p one unit pRBC; s/p endoscopy - esophageal ulcers noted; cauterized - now on PPI IV BID, Carafate QID - advance diet to full liquid - d/c IVFs - monitor H/H - restart aspirin five days after EGD 02/26 - Hgb one year prior was around 14, today is 8.9 - patient states he's had excessive bleeding episodes the past day; possible hematemesis vs. hemoptysis - also c/o melena - due to the drop in Hgb, this seems more like an upper GI bleed - started on Protonix drip; will add Octreotide drip - started on empiric Rocephin - IVFs for fluid resuscitation - check H/H q6 - hold aspirin Acute Kidney Injury superimposed on CKD stage 3 - resolved - creatinine up to 1.9 - baseline creatinine is around 1.7 - giving IVFs, monitor Hypertension in the setting of Renal Artery Stenosis - s/p bilateral stents - hold SEVERINO-I due to kidney injury - will continue b-ryan, CCB, and Hydralazine for blood pressure, but monitor closely DVT ppx - SCDs FULL CODE
--- NOTE | 2018-02-27 09:38 | Gastroenterology Progress Note ---
Gastroenterology Progress Note Patient seen and examined today, s/p EGD for hematemesis, found with multiple GEJ ulcers, one had visible vessel which was treated. Given one PRBC overnight and his repeat H/H remains stable today. Feels fine and denies any abdominal pain, nausea or vomiting. On exam: Abdomen soft , nontender. Recommendations: Continue current management. IV PPi and Carafate. Advance to full liquid diet. Given Hx of PUD in the past requiring antrectomy, will check Gastrin level in 3 months after repeat EGD.
[2018-02-27 15:07] LABS: HEMATOCRIT 24.7 % (42-52); HEMOGLOBIN 8.7 g/dL (14.0-18.0)
[2018-02-27] MEDS: PANTOprazole INJ 40 MG in SYRINGE 0 ML IV SCH (20:43)
[2018-02-28] VITALS (7 sets, daily range): BP systolic 129–140; BP diastolic 57–59; PULSE 66–70; TEMP 36.5–37.1; O2SAT 96–99
[2018-02-28 06:21] LABS: HEMATOCRIT 24.4 % (42-52); HEMOGLOBIN 8.3 g/dL (14.0-18.0); MEAN CELL VOLUME 90.4 fL (80-100); MEAN CORPUSCULAR HEMOGLOBIN 30.7 pg (25-34); MEAN PLATELET VOLUME 10.2 fL (7.4-10.4); PLATELET COUNT 133 K/uL (130-400); RED CELL DISTRIBUTION WIDTH CV 15.8 % (11.5-14.5); RED CELL DISTRIBUTION WIDTH SD 51.1 fL (36.4-46.3); WHITE BLOOD COUNT 6.35 K/uL (4.8-10.8)
[2018-02-28 06:54] LABS: CALCIUM 7.9 mg/dl (8.5-10.1); CREATININE 1.55 mg/dl (0.60-1.40)
[2018-02-28] MEDS: SUCRALFATE 1 GM/10 ML UDC PO SCH ×4 (07:34→20:50)
[2018-02-28] MEDS: PANTOprazole INJ 40 MG in SYRINGE 0 ML IV SCH ×2 (07:34→20:50)
[2018-02-28] MEDS: NIFEdipine 30 MG CR TAB PO SCH (07:35)
--- NOTE | 2018-02-28 08:30 | Progress Note ---
Subjective Date of Service: Feb 28, 2018. Subjective Pt evaluation today including: conversation w/ patient, physical exam, lab review, review of studies, review of inpatient medication list Saw/examined the patient in room 207 Patient is doing well; no abdominal pain +BM yesterday, dark No hematemesis; tolerating full liquid diet No other complaints at this time Problem List Medical Problems: (1) Anemia Status: Acute (2) GI bleed Status: Acute (3) Vomiting and diarrhea Status: Acute Review of Systems Constitutional: No fever, No chills Respiratory: No cough, No sputum, No shortness of breath Cardiac: No chest pain Abdomen: No pain, No nausea, No vomiting, No diarrhea, No constipation, No GI bleeding Medications Current Inpatient Medications Medications (Trade) Dose Ordered Sig/Juan Carlos Route Start Time Stop Time Status Last Admin Dose Admin Ondansetron HCl (Zofran Inj) 4 mg Q6H PRN IV 02/26/18 08:45 03/28/18 08:44 Atenolol (Tenormin Tab) 50 mg BID PO 02/26/18 09:00 03/28/18 08:59 02/28/18 07:35 50 MG Hydralazine HCl (Apresoline Tab) 100 mg TID PO 02/26/18 09:00 03/28/18 08:59 02/28/18 07:34 100 MG Nifedipine (Procardia Xl Tab) 90 mg DAILY PO 02/26/18 09:00 03/28/18 08:59 02/28/18 07:35 90 MG Sucralfate (Carafate Susp) 1 gm QID PO 02/26/18 17:00 03/28/18 16:59 02/28/18 07:34 1 GM Miscellaneous Medication (No Nsaids) 1 ea UD N/A 02/26/18 15:45 03/28/18 15:44 Pantoprazole Sodium 40 mg/ Syringe 10 ml @ 5 mls/min DAILY@, IV 02/27/18 21:00 03/29/18 20:59 02/28/18 07:34 5 MLS/MIN Objective Vital Signs Date Time Temp Pulse Resp B/P (MAP) Pulse Ox O2 Delivery O2 Flow Rate FiO2 02/28/18 06:52 36.7 69 18 132/58 (82) 99 Room Air 02/28/18 04:00 Room Air 02/28/18 03:55 36.7 70 18 129/59 (82) 97 02/27/18 23:59 Room Air 02/27/18 23:39 36.8 67 18 119/61 (80) 98 Room Air 02/27/18 20:00 Room Air 02/27/18 19:59 36.4 71 20 146/62 (90) 95 Room Air 02/27/18 16:03 36.7 64 20 150/61 (90) 95 Room Air 02/27/18 16:00 Room Air 02/27/18 12:00 Room Air 02/27/18 11:41 37.0 70 16 134/60 (84) 99 Room Air Physical Exam General Appearance: no apparent distress Respiratory/Chest: lungs clear, normal breath sounds, no respiratory distress, no accessory muscle use Cardiovascular: regular rate, rhythm, no edema, no murmur Abdomen: normal bowel sounds, non tender, soft Laboratory Results Last 24 Hours Test 02/27/18 09:07 02/27/18 14:48 02/28/18 05:56 Hemoglobin 8.7 g/dL 8.7 g/dL 8.3 g/dL Hematocrit 25.1 % 24.7 % 24.4 % Troponin I < 0.015 ng/ml White Blood Count 6.35 K/uL Red Blood Count 2.70 M/uL Mean Corpuscular Volume 90.4 fL Mean Corpuscular Hemoglobin 30.7 pg Mean Corpuscular Hemoglobin Concent 34.0 g/dl RDW Standard Deviation 51.1 fL RDW Coefficient of Variation 15.8 % Platelet Count 133 K/uL Mean Platelet Volume 10.2 fL Sodium Level 143 mmol/L Potassium Level 4.0 mmol/L Chloride Level 112 mmol/L Carbon Dioxide Level 23 mmol/L Anion Gap 8.0 mmol/L Blood Urea Nitrogen 31 mg/dl Creatinine 1.55 mg/dl Est Creatinine Clear Calc Drug Dose 40.2 ml/min Estimated GFR () 46.3 Estimated GFR (Non- 39.9 BUN/Creatinine Ratio 20.1 Random Glucose 95 mg/dl Calcium Level 7.9 mg/dl Assessment and Plan This is an 87 year old male with a PMH of renal artery stenosis s/p bilateral stents, difficult to control hypertension, CKD stage 3, carotid artery stenosis s/p R carotid endarterectomy, hyperlipidemia, previous lumbar surgery and chronic low back pain - presents with a few day history of hemoptysis vs. hematemesis and melena with acute blood loss anemia. Upper GI Bleed - Esophageal Ulcers Acute Blood Loss Anemia 02/28 - Hgb = 8.3 - PPI BID, Carafate QID - advance diet when okay with GI - monitor H/H 02/27 - s/p one unit pRBC; s/p endoscopy - esophageal ulcers noted; cauterized - now on PPI IV BID, Carafate QID - advance diet to full liquid - d/c IVFs - monitor H/H - restart aspirin five days after EGD 02/26 - Hgb one year prior was around 14, today is 8.9 - patient states he's had excessive bleeding episodes the past day; possible hematemesis vs. hemoptysis - also c/o melena - due to the drop in Hgb, this seems more like an upper GI bleed - started on Protonix drip; will add Octreotide drip - started on empiric Rocephin - IVFs for fluid resuscitation - check H/H q6 - hold aspirin Acute Kidney Injury superimposed on CKD stage 3 - resolved - creatinine up to 1.9 - baseline creatinine is around 1.7 - giving IVFs, monitor Hypertension in the setting of Renal Artery Stenosis - s/p bilateral stents - hold SEVERINO-I due to kidney injury - will continue b-ryan, CCB, and Hydralazine for blood pressure, but monitor closely DVT ppx - SCDs FULL CODE
--- NOTE | 2018-02-28 11:07 | Gastroenterology Progress Note ---
Progress Note Date of Service: Feb 28, 2018 Subjective Pt evaluation today including: conversation w/ patient, physical exam, chart review, lab review, review of studies, review of inpatient medication list Mr. Frederick is an 87 yr old male with a distant hx of partial gastrectomy for stomach ulcers. Recently taking Ibuprofen for pain. He presented with c/o hematemesis. EGD on 02/[address] Pack with lower esophageal and duodenal ulcers. One esophageal ulcer was 15mm with a visible vessel; tx with bipolar probe. Pt continues to deny abdominal pain. Hb on arrival8.9, received one until of RBCs, Hb yesterday 8.7 and today 8.3. BUN was 69 on arrival, 31 this morning. One dark stool early today. No further vomiting. Review of Systems Constitutional: No fever Respiratory: No cough Cardiac: No chest pain Abdomen: + see HPI, + GI bleeding, No pain, No nausea, No vomiting, No diarrhea Musculoskeletal: No see HPI Male : No dysuria Neuro: No memory loss Heme: No abnormal bleeding/bruising Endo: No fatigue Skin: No rash Medications Current Inpatient Medications Medications (Trade) Dose Ordered Sig/Juan Carlos Route Start Time Stop Time Status Last Admin Dose Admin Ondansetron HCl (Zofran Inj) 4 mg Q6H PRN IV 02/26/18 08:45 03/28/18 08:44 Atenolol (Tenormin Tab) 50 mg BID PO 02/26/18 09:00 03/28/18 08:59 02/28/18 07:35 50 MG Hydralazine HCl (Apresoline Tab) 100 mg TID PO 02/26/18 09:00 03/28/18 08:59 02/28/18 07:34 100 MG Nifedipine (Procardia Xl Tab) 90 mg DAILY PO 02/26/18 09:00 03/28/18 08:59 02/28/18 07:35 90 MG Sucralfate (Carafate Susp) 1 gm QID PO 02/26/18 17:00 03/28/18 16:59 02/28/18 07:34 1 GM Miscellaneous Medication (No Nsaids) 1 ea UD N/A 02/26/18 15:45 03/28/18 15:44 Pantoprazole Sodium 40 mg/ Syringe 10 ml @ 5 mls/min DAILY@ IV 02/27/18 21:00 03/29/18 20:59 02/28/18 07:34 5 MLS/MIN Objective Vital Signs Date Time Temp Pulse Resp B/P (MAP) Pulse Ox O2 Delivery O2 Flow Rate FiO2 02/28/18 06:52 36.7 69 18 132/58 (82) 99 Room Air 02/28/18 04:00 Room Air 02/28/18 03:55 36.7 70 18 129/59 (82) 97 02/27/18 23:59 Room Air 02/27/18 23:39 36.8 67 18 119/61 (80) 98 Room Air 02/27/18 20:00 Room Air 02/27/18 19:59 36.4 71 20 146/62 (90) 95 Room Air 02/27/18 16:03 36.7 64 20 150/61 (90) 95 Room Air 02/27/18 16:00 Room Air 02/27/18 12:00 Room Air 02/27/18 11:41 37.0 70 16 134/60 (84) 99 Room Air Physical Exam General Appearance: no apparent distress ENT: pharynx normal Neck: no JVD Respiratory/Chest: lungs clear Cardiovascular: regular rate, rhythm, no JVD, no murmur Abdomen: non tender, soft Extremities: no pedal edema Neurologic/Psych: alert, normal mood/affect, oriented x 3 Skin: normal color, no jaundice Laboratory Results Last 24 Hours Test 02/27/18 14:48 02/28/18 05:56 Hemoglobin 8.7 g/dL 8.3 g/dL Hematocrit 24.7 % 24.4 % White Blood Count 6.35 K/uL Red Blood Count 2.70 M/uL Mean Corpuscular Volume 90.4 fL Mean Corpuscular Hemoglobin 30.7 pg Mean Corpuscular Hemoglobin Concent 34.0 g/dl RDW Standard Deviation 51.1 fL RDW Coefficient of Variation 15.8 % Platelet Count 133 K/uL Mean Platelet Volume 10.2 fL Sodium Level 143 mmol/L Potassium Level 4.0 mmol/L Chloride Level 112 mmol/L Carbon Dioxide Level 23 mmol/L Anion Gap 8.0 mmol/L Blood Urea Nitrogen 31 mg/dl Creatinine 1.55 mg/dl Est Creatinine Clear Calc Drug Dose 40.2 ml/min Estimated GFR () 46.3 Estimated GFR (Non- 39.9 BUN/Creatinine Ratio 20.1 Random Glucose 95 mg/dl Calcium Level 7.9 mg/dl Assessment and Plan Mr. Frederick is an 87 yr old male who presented with hematemesis secondary to a large esophageal ulcer, endoscopically treat on 02/26. Plan: 1. Continue PPI infusion-do not change to oral until tomorrow 2. Continue to follow outputs for s/s of further GI bleeding. 3. No NSAID use. OK to use tylenol prn pain. 4. Will need a f/u EGD in 2-3 months. Our office will call the pt to arrange. Please keep on BID PPI until that repeat EGD. 5. Advance diet to mechanical soft. I have seen , examined and agree with the plan as outlined by GEETA Colmenares as above. -exam reveals soft abd -No signs of bleeding -S/P EGD with esophagitis and s/p cautery treatment of vessel within ulcer -Conintue IV PPI infusion now.
[2018-03-01 00:02] VITALS: BP 118/62; PULSE 64; TEMP 36.8; O2SAT 96
[2018-03-01 03:49] VITALS: BP 152/56; PULSE 67; TEMP 36.7; O2SAT 98
[2018-03-01 06:26] LABS: HEMATOCRIT 26.4 % (42-52); HEMOGLOBIN 9.1 g/dL (14.0-18.0); MEAN CELL VOLUME 89.5 fL (80-100); MEAN CORPUSCULAR HEMOGLOBIN 30.8 pg (25-34); MEAN CORPUSCULAR HGB CONC 34.5 g/dl (32-36); MEAN PLATELET VOLUME 10.3 fL (7.4-10.4); PLATELET COUNT 177 K/uL (130-400); RED CELL DISTRIBUTION WIDTH CV 15.5 % (11.5-14.5); RED CELL DISTRIBUTION WIDTH SD 50.4 fL (36.4-46.3); WHITE BLOOD COUNT 7.05 K/uL (4.8-10.8)
[2018-03-01 06:56] LABS: CALCIUM 8.4 mg/dl (8.5-10.1); CREATININE 1.61 mg/dl (0.60-1.40); POTASSIUM 3.6 mmol/L (3.5-5.1)
[2018-03-01] MEDS: PANTOprazole INJ 40 MG in SYRINGE 0 ML IV SCH (07:45)
[2018-03-01] MEDS: NIFEdipine 30 MG CR TAB PO SCH (07:46)
[2018-03-01] MEDS: SUCRALFATE 1 GM/10 ML UDC PO SCH (07:46)
[2018-03-01 08:30] VITALS: BP 154/58; PULSE 62; TEMP 36.5; O2SAT 96
[2018-03-01] MEDS ORDERED: PANT40TA PO (10:24)
[2018-03-01] MEDS ORDERED: CRFUDL PO (10:24)
--- NOTE | 2018-03-01 10:32 | Progress Note ---
Subjective Date of Service: Mar 01, 2018. Subjective Pt evaluation today including: conversation w/ patient, physical exam, lab review, review of studies, conversation w/ small business consultant, review of inpatient medication list Saw/examined the patient in room 207 He's doing well Eager to go home Denies abdominal pain; denies nausea/vomiting/diarrhea/overt GI bleeding Problem List Medical Problems: (1) Anemia Status: Acute (2) GI bleed Status: Acute (3) Vomiting and diarrhea Status: Acute Review of Systems Constitutional: No fever, No chills Respiratory: No cough, No sputum, No wheezing, No shortness of breath, No dyspnea on exertion Cardiac: No chest pain, No edema, No palpitations Abdomen: No pain, No nausea, No vomiting, No diarrhea, No constipation, No GI bleeding Heme: No abnormal bleeding/bruising Medications Current Inpatient Medications Medications (Trade) Dose Ordered Sig/Juan Carlos Route Start Time Stop Time Status Last Admin Dose Admin Ondansetron HCl (Zofran Inj) 4 mg Q6H PRN IV 02/26/18 08:45 03/28/18 08:44 Atenolol (Tenormin Tab) 50 mg BID PO 02/26/18 09:00 03/28/18 08:59 03/01/18 07:46 50 MG Hydralazine HCl (Apresoline Tab) 100 mg TID PO 02/26/18 09:00 03/28/18 08:59 03/01/18 07:46 100 MG Nifedipine (Procardia Xl Tab) 90 mg DAILY PO 02/26/18 09:00 03/28/18 08:59 03/01/18 07:46 90 MG Sucralfate (Carafate Susp) 1 gm QID PO 02/26/18 17:00 03/28/18 16:59 03/01/18 07:46 1 GM Miscellaneous Medication (No Nsaids) 1 ea UD N/A 02/26/18 15:45 03/28/18 15:44 Pantoprazole Sodium 40 mg/ Syringe 10 ml @ 5 mls/min DAILY@09,21 IV 02/27/18 21:00 03/03/18 09:01 03/01/18 07:45 5 MLS/MIN Lisinopril (Zestril Tab) 10 mg DAILY PO 03/02/18 09:00 04/01/18 08:59 Simvastatin (Zocor Tab) 20 mg QPM PO 03/01/18 21:00 03/31/18 20:59 Objective Vital Signs Date Time Temp Pulse Resp B/P (MAP) Pulse Ox O2 Delivery O2 Flow Rate FiO2 03/01/18 08:30 36.5 62 18 154/58 (90) 96 03/01/18 08:00 Room Air 03/01/18 04:00 Room Air 03/01/18 03:49 36.7 67 18 152/56 (88) 98 Room Air 03/01/18 00:02 36.8 64 18 118/62 (80) 96 Room Air 03/01/18 00:00 Room Air 02/28/18 21:24 37.1 68 20 140/57 (84) 96 Room Air 02/28/18 20:00 Room Air 02/28/18 16:01 99 Room Air 02/28/18 15:56 36.5 66 20 140/59 (86) 96 Room Air 02/28/18 12:18 99 Room Air Physical Exam General Appearance: no apparent distress Respiratory/Chest: lungs clear, normal breath sounds, no respiratory distress, no accessory muscle use Cardiovascular: regular rate, rhythm, no edema, no murmur Abdomen: normal bowel sounds, non tender, soft Extremities: normal inspection, no pedal edema Neurologic/Psychiatric: no motor/sensory deficits, alert, normal mood/affect Skin: normal color Laboratory Results Last 24 Hours Test 03/01/18 06:15 White Blood Count 7.05 K/uL Red Blood Count 2.95 M/uL Hemoglobin 9.1 g/dL Hematocrit 26.4 % Mean Corpuscular Volume 89.5 fL Mean Corpuscular Hemoglobin 30.8 pg Mean Corpuscular Hemoglobin Concent 34.5 g/dl RDW Standard Deviation 50.4 fL RDW Coefficient of Variation 15.5 % Platelet Count 177 K/uL Mean Platelet Volume 10.3 fL Sodium Level 142 mmol/L Potassium Level 3.6 mmol/L Chloride Level 109 mmol/L Carbon Dioxide Level 24 mmol/L Anion Gap 9.0 mmol/L Blood Urea Nitrogen 22 mg/dl Creatinine 1.61 mg/dl Est Creatinine Clear Calc Drug Dose 38.7 ml/min Estimated GFR () 44.2 Estimated GFR (Non- 38.2 BUN/Creatinine Ratio 13.8 Random Glucose 107 mg/dl Calcium Level 8.4 mg/dl Assessment and Plan This is an 87 year old male with a PMH of renal artery stenosis s/p bilateral stents, difficult to control hypertension, CKD stage 3, carotid artery stenosis s/p R carotid endarterectomy, hyperlipidemia, previous lumbar surgery and chronic low back pain - presents with a few day history of hemoptysis vs. hematemesis and melena with acute blood loss anemia. Upper GI Bleed - Esophageal Ulcers Acute Blood Loss Anemia / - Hgb up to >9 - plan to d/c on PO PPI BID, and Carafate QID - tolerating diet - outpatient follow-up with GI in 2-3 months for repeat EGD - can restart ASA on 03/04 02/28 - Hgb = 8.3 - PPI BID, Carafate QID - advance diet when okay with GI - monitor H/H 02/27 - s/p one unit pRBC; s/p endoscopy - esophageal ulcers noted; cauterized - now on PPI IV BID, Carafate QID - advance diet to full liquid - d/c IVFs - monitor H/H - restart aspirin five days after EGD 02/26 - Hgb one year prior was around 14, today is 8.9 - patient states he's had excessive bleeding episodes the past day; possible hematemesis vs. hemoptysis - also c/o melena - due to the drop in Hgb, this seems more like an upper GI bleed - started on Protonix drip; will add Octreotide drip - started on empiric Rocephin - IVFs for fluid resuscitation - check H/H q6 - hold aspirin Acute Kidney Injury superimposed on CKD stage 3 - resolved - creatinine up to 1.9 - baseline creatinine is around 1.7 - giving IVFs, monitor Hypertension in the setting of Renal Artery Stenosis - s/p bilateral stents - hold SEVERINO-I due to kidney injury - will continue b-ryan, CCB, and Hydralazine for blood pressure, but monitor closely DVT ppx - SCDs FULL CODE
--- NOTE | 2018-03-01 10:36 | Discharge Instructions ---
Discharge Instructions Date of Service Mar 01, 2018. Admission Reason for Admission: Gi Bleedd Discharge Discharge Diagnosis / Problem: Esophageal and Duodenal Ulcers Discharge Goals Goal(s): Decrease discomfort, Improve function, Diagnostic testing, Therapeutic intervention Activity Recommendations Activity Limitations: resume your previous activity . Instructions / Follow-Up Instructions / Follow-Up Please follow-up with Dr. Philip on March 08 at 12:45PM * You will be prescribed Protonix - take this twice a day until you have your repeat endoscopy * You will be prescribed Carafate - take this four times daily * Restart aspirin 81mg on March 04 * Avoid NSAIDs - this includes ibuprofen, Aleve, Advil, Motrin, etc. * Follow-up with gastroenterology in 2-3 months for a repeat endoscopy Current Hospital Diet Patient's current hospital diet: AHA Diet (Heart Healthy), Low Fiber Diet Discharge Diet Recommended Diet: AHA Diet (Heart Healthy) Procedures Procedures Performed: Esophagogastroduodenoscopy Pending Studies Studies pending at discharge: no Medical Emergencies . Who to Call and When: Medical Emergencies: If at any time you feel your situation is an emergency, please call 911 immediately. . Non-Emergent Contact Non-Emergency issues call your: Primary Care Provider, Financial Processing Clerk . . "Provider Documentation" section prepared by Faina Choi. .
--- NOTE | 2018-03-01 10:38 | Discharge Summary ---
Discharge Summary Date of Service Mar 01, 2018. Discharge Summary Admission Date: Feb 26, 2018 at 08:43 Discharge Date: Mar 01, 2018 Discharge Disposition: Home Principal Diagnosis: Esophageal Ulcers Duodenal Ulcers Acute Blood Loss Anemia Acute Kidney Injury Hypertension Procedures: EGD - cauterized esophageal ulcers Medication Reconciliation New Medications: Pantoprazole Sodium (Protonix) 40 Mg Tab 40 MG PO BID for 30 Days, #60 TAB 2 Refills Sucralfate (Sucralfate) 1 Gm/10 Ml Susp 1 GM PO QID for 30 Days, #1200 ML 2 Refills Continued Medications: Allopurinol (Zyloprim) 100 Mg Tab 100 MG PO DAILY, TAB Atenolol (Tenormin) 50 Mg Tab 50 MG PO BID, TAB Duloxetine HCl (Cymbalta) 20 Mg Cap 1 CAP PO DAILY, CAP Hydralazine HCl (Hydralazine HCl) 50 Mg Tab 100 MG PO TID Lisinopril (Zestril) 10 Mg Tab 10 MG PO DAILY, TAB Nifedipine (Nifedipine ER) 90 Mg Tabcr 90 MG PO DAILY Polyethylene Glycol 3350 (Miralax) 1 Pow Pow 17 GM OR DAILY PRN for Constipation Simvastatin (Zocor) 20 Mg Tab 20 MG PO QPM, TAB Tramadol (Ultram) 50 Mg Tab 50 MG PO Q6 PRN for Pain, TAB Discontinued Medications: Amoxicillin & Pot Clavulanate (Augmentin 875-125 mg) 1 Tab Tab 1 TAB PO BID for 10 Days, #20 TAB Aspirin (Aspirin Ec) 81 Mg Tab 81 MG PO DAILY Admission Information HPI (per Admitting provider): This is an 87 year old male with a PMH of renal artery stenosis s/p bilateral stents, difficult to control hypertension, CKD stage 3, carotid artery stenosis s/p R carotid endarterectomy, hyperlipidemia, previous lumbar surgery and chronic low back pain - presents with a few day history of hemoptysis. As per patient, he went to his primary care because he saw streaks of blood and mucous speckled with blood. He was prescribed prednisone and Augmentin at that time for possible bronchitis and discharged home; he completed his five day course of prednisone. Last evening (02/25), one night prior to arrival, his bleeding acutely worsened. States he woke up with excessive amounts of blood, but is unsure if he was vomiting this up or coughing this up. Does state he noted dark stools for years, but may have become darker in the acute setting. States he had multiple episodes through the night and then presented to the ED. His main complaints this morning were nausea; denies abdominal pain. States he does not drink, and last smoked over 45 years prior. Denies excessive NSAID use; states he uses Tramadol and Tylenol intermittently for chronic low back pain. Noted to have a significant drop in Hgb upon arrival to the ED from one year prior. Stool positive for occult blood. +melena. Started on fluids, Protonix drip, and Zofran for nausea. States he feels weak, dizzy and "lousy". Physical Exam (per Admitting): General Appearance: no apparent distress, + pertinent finding (pale, weak appearing) Head: normocephalic, atraumatic Eyes: normal inspection ENT: + pertinent finding (dry mucous membranes; hard of hearing - hearing aid in R ear) Respiratory/Chest: no respiratory distress, no accessory muscle use, + wheezing (diffuse end expiratory wheezing) Cardiovascular: regular rate, rhythm, no edema, no murmur Abdomen/GI: normal bowel sounds, non tender, soft Back: normal inspection, no CVA tenderness, no muscle spasm, normal range of motion Extremities/Musculoskelatal: normal inspection, no calf tenderness, normal capillary refill, no pedal edema, normal range of motion Neurologic/Psych: billing coordinator II-XII nml as tested, no motor/sensory deficits, alert , normal mood/affect, oriented x 3 Skin: normal color Lymphatic: no adenopathy Hospital Course This is an 87 year old male with a PMH of renal artery stenosis s/p bilateral stents, difficult to control hypertension, CKD stage 3, carotid artery stenosis s/p R carotid endarterectomy, hyperlipidemia, previous lumbar surgery and chronic low back pain - presents with a few day history of hemoptysis vs. hematemesis and melena with acute blood loss anemia. Upper GI Bleed - Esophageal Ulcers Acute Blood Loss Anemia 4/3 - Hgb up to >9 - plan to d/c on PO PPI BID, and Carafate QID - tolerating diet - outpatient follow-up with GI in 2-3 months for repeat EGD - can restart ASA on 03/04 4/2 - Hgb = 8.3 - PPI BID, Carafate QID - advance diet when okay with GI - monitor H/H 02/27 - s/p one unit pRBC; s/p endoscopy - esophageal ulcers noted; cauterized - now on PPI IV BID, Carafate QID - advance diet to full liquid - d/c IVFs - monitor H/H - restart aspirin five days after EGD 02/26 - Hgb one year prior was around 14, today is 8.9 - patient states he's had excessive bleeding episodes the past day; possible hematemesis vs. hemoptysis - also c/o melena - due to the drop in Hgb, this seems more like an upper GI bleed - started on Protonix drip; will add Octreotide drip - started on empiric Rocephin - IVFs for fluid resuscitation - check H/H q6 - hold aspirin Acute Kidney Injury superimposed on CKD stage 3 - resolved - creatinine up to 1.9 - baseline creatinine is around 1.7 - giving IVFs, monitor Hypertension in the setting of Renal Artery Stenosis - s/p bilateral stents - hold SEVERINO-I due to kidney injury - will continue b-ryan, CCB, and Hydralazine for blood pressure, but monitor closely DVT ppx - SCDs FULL CODE Total time spent on discharge = 45 minutes This includes examination of the patient, discharge planning, medication reconciliation, and communication with other providers. Discharge Instructions Please follow-up with Dr. Philip on March 08 at 12:45PM * You will be prescribed Protonix - take this twice a day until you have your repeat endoscopy * You will be prescribed Carafate - take this four times daily * Restart aspirin 81mg on March 04 * Avoid NSAIDs - this includes ibuprofen, Aleve, Advil, Motrin, etc. * Follow-up with gastroenterology in 2-3 months for a repeat endoscopy
[2018-03-01 11:33] VITALS: BP 154/58; PULSE 62; TEMP 36.5; O2SAT 96
--- NOTE | 2018-03-01 12:21 | Gastroenterology Progress Note ---
Progress Note Date of Service: Mar 01, 2018 Subjective Pt evaluation today including: conversation w/ patient, physical exam, chart review, lab review, review of studies, review of inpatient medication list Mr. Frederick is an 87 yr old male who presented for hematemesis. EGD early on with esophageal and duodenal ulcer. No active GI bleeding after EGD as BUN decreasing, Hb stable post transfusion. One formed black stool yesterday AM, no BM since then. Review of Systems Constitutional: No fever Respiratory: No cough Abdomen: + see HPI, No pain, No nausea, No vomiting, No diarrhea, No constipation Male : No dysuria Neuro: No memory loss Psych: No depression symptoms Heme: + see HPI, No abnormal bleeding/bruising Endo: No fatigue Skin: No rash, No jaundice Medications Current Inpatient Medications Medications (Trade) Dose Ordered Sig/Juan Carlos Route Start Time Stop Time Status Last Admin Dose Admin Ondansetron HCl (Zofran Inj) 4 mg Q6H PRN IV 02/26/18 08:45 03/28/18 08:44 Atenolol (Tenormin Tab) 50 mg BID PO 02/26/18 09:00 03/28/18 08:59 03/01/18 07:46 50 MG Hydralazine HCl (Apresoline Tab) 100 mg TID PO 02/26/18 09:00 03/28/18 08:59 03/01/18 07:46 100 MG Nifedipine (Procardia Xl Tab) 90 mg DAILY PO 02/26/18 09:00 03/28/18 08:59 03/01/18 07:46 90 MG Sucralfate (Carafate Susp) 1 gm QID PO 02/26/18 17:00 03/28/18 16:59 03/01/18 07:46 1 GM Miscellaneous Medication (No Nsaids) 1 ea UD N/A 02/26/18 15:45 03/28/18 15:44 Pantoprazole Sodium 40 mg/ Syringe 10 ml @ 5 mls/min DAILY@ IV 02/27/18 21:00 03/03/18 09:01 03/01/18 07:45 5 MLS/MIN Lisinopril (Zestril Tab) 10 mg DAILY PO 03/02/18 09:00 04/01/18 08:59 Simvastatin (Zocor Tab) 20 mg QPM PO 03/01/18 21:00 03/31/18 20:59 Objective Vital Signs Date Time Temp Pulse Resp B/P (MAP) Pulse Ox O2 Delivery O2 Flow Rate FiO2 03/01/18 11:33 36.5 62 18 96 Room Air 03/01/18 08:30 36.5 62 18 154/58 (90) 96 03/01/18 08:00 Room Air 03/01/18 04:00 Room Air 03/01/18 03:49 36.7 67 18 152/56 (88) 98 Room Air 03/01/18 00:02 36.8 64 18 118/62 (80) 96 Room Air 03/01/18 00:00 Room Air 02/28/18 21:24 37.1 68 20 140/57 (84) 96 Room Air 02/28/18 20:00 Room Air 02/28/18 16:01 99 Room Air 02/28/18 15:56 36.5 66 20 140/59 (86) 96 Room Air 02/28/18 12:18 99 Room Air Physical Exam General Appearance: no apparent distress ENT: pharynx normal Neck: supple, no adenopathy, no JVD Respiratory/Chest: lungs clear, normal breath sounds Cardiovascular: regular rate, rhythm, no JVD, no murmur Abdomen: non tender, soft Extremities: non-tender Neurologic/Psych: alert, normal mood/affect, oriented x 3 Skin: no jaundice Laboratory Results Last 24 Hours Test 03/01/18 06:15 White Blood Count 7.05 K/uL Red Blood Count 2.95 M/uL Hemoglobin 9.1 g/dL Hematocrit 26.4 % Mean Corpuscular Volume 89.5 fL Mean Corpuscular Hemoglobin 30.8 pg Mean Corpuscular Hemoglobin Concent 34.5 g/dl RDW Standard Deviation 50.4 fL RDW Coefficient of Variation 15.5 % Platelet Count 177 K/uL Mean Platelet Volume 10.3 fL Sodium Level 142 mmol/L Potassium Level 3.6 mmol/L Chloride Level 109 mmol/L Carbon Dioxide Level 24 mmol/L Anion Gap 9.0 mmol/L Blood Urea Nitrogen 22 mg/dl Creatinine 1.61 mg/dl Est Creatinine Clear Calc Drug Dose 38.7 ml/min Estimated GFR () 44.2 Estimated GFR (Non- 38.2 BUN/Creatinine Ratio 13.8 Random Glucose 107 mg/dl Calcium Level 8.4 mg/dl Assessment and Plan Mr. Frederick is an 87 yr old male who presented with hematemesis secondary to a large esophageal ulcer, endoscopically treat on 02/26. Plan: 1. No GI contraindication to DC. Please send home on BID PPI. 2. Our office will call him with a an appt for OP EGD in 2 months. 3. No NSAID use. OK to use tylenol prn pain. 4. Regular diet. I have seen , examined and agree with the plan as outlined by GEETA Colmenares as above. -exam reveals soft abd -No signs of bleeding -Ok for D/C with bid PPI and repeat exam with Dr. Tee in 4-8 weeks
[2018-03-01] MEDS ORDERED: SIMVASTATIN 20 MG TAB PO SCH (21:00)
[2018-03-02] MEDS ORDERED: LISINOPRIL 10 MG TAB PO SCH (09:00)
== END 2018-03-01 13:43 | disposition home or self-care (01) | DRG 381 ==
LOC: EDUNIT# 06:12 → C.EDB 06:14 → C.2E 08:43 → ENRESERV 08:50
PROVIDERS: ADMIT Family Medicine; ATTEND Family Medicine
PROC: 0W3P8ZZ Control Bleeding in Gastrointestinal Tract, Via Natural or Artificial Opening Endoscopic (ICD-10-PCS; principal; 2018-02-26 13:45)
DX: K22.11 Ulcer of esophagus with bleeding (principal); N17.9 Acute kidney failure, unspecified; K26.9 Duodenal ulcer, unspecified as acute or chronic, without hemorrhage or perforation; I12.9 Hypertensive chronic kidney disease with stage 1 through stage 4 chronic kidney disease, or unspecified chronic kidney disease; N18.3 Chronic kidney disease, stage 3 (moderate); E78.5 Hyperlipidemia, unspecified; M10.9 Gout, unspecified; Z85.46 Personal history of malignant neoplasm of prostate; H35.30 Unspecified macular degeneration; Z96.649 Presence of unspecified artificial hip joint; D62 Acute posthemorrhagic anemia; Z82.49 Family history of ischemic heart disease and other diseases of the circulatory system; F17.200 Nicotine dependence, unspecified, uncomplicated; Z79.82 Long term (current) use of aspirin; Z88.8 Allergy status to other drugs, medicaments and biological substances; K92.2 Gastrointestinal hemorrhage, unspecified; D63.1 Anemia in chronic kidney disease; I70.1 Atherosclerosis of renal artery; Z98.0 Intestinal bypass and anastomosis status

== ENCOUNTER 2020-01-24 09:55 | Inpatient (IN) ==
[2020-01-24] MEDS ORDERED: CEFEPIME 2,000 MG/20 ML VIAL IV STA (10:12)
[2020-01-24] MEDS ORDERED: SODIUM CHLORIDE 0.9% 1000ML 1,000 ML IV ONE (10:12)
[2020-01-24] MEDS ORDERED: ACETAMINOPHEN 1,000 MG/100 ML VIAL IV STA (10:14)
--- NOTE | 2020-01-24 10:46 | XRay Report ---
XR chest 1V portable HISTORY: 89 years-old Male SEPSIS acute sepsis COMPARISON: Chest radiograph 02/26/2018 TECHNIQUE: Portable AP view of the chest FINDINGS: Cardiac silhouette is mildly enlarged, unchanged. Increased lucency of the lungs suggest emphysema. C hronic right hemidiaphragmatic elevation. Calcified plaque of the thoracic aortic arch. No pneumothor ax, pleural effusion, focal airspace consolidation or overt pulmonary edema. Surgical clips are noted about the right neck. Degenerative changes of the shoulders and spine. IMPRESSION: Cardiomegaly without acute process. ACT 112: Negative or not required by law. The above report was generated using voice recognition software. It may contain grammatical, syntax o r spelling errors. Electronically signed by: Kleber Gandhi M.D. 01/24/2020 10:45 AM
[2020-01-24 10:54] LABS: Basophils # (auto) 0.02 K/uL (0-0.2); Basophils % (auto) 0.2 %; Eosinophils # (auto) 0.05 K/uL (0-0.5); Eosinophils % (auto) 0.5 %; Hemoglobin 12.9 g/dL (14.0-18.0); Immature Granulocytes # (auto) 0.01 K/uL (0.00-0.02); Immature Granulocytes % (auto) 0.1 %; Lymphocytes # (auto) 1.15 K/uL (1.2-3.4); Lymphocytes % (auto) 11.7 %; Mean Corpuscular Hgb Conc 33.1 g/dL (32-36); Mean Corpuscular Volume 93.8 fL (80-100); Mean Platelet Volume 10.6 fL (7.4-10.4); Monocytes # (auto) 1.27 K/uL (0.11-0.59); Monocytes % (auto) 12.9 %; Neutrophils # (auto) 7.31 K/uL (1.4-6.5); Neutrophils % (auto) 74.6 %; Platelet Count 174 K/uL (130-400); RDW Coefficient of Variation 14.5 % (11.5-14.5); RDW Standard Deviation 49.5 fL (36.4-46.3); Red Blood Count 4.16 M/uL (4.7-6.1); White Blood Count 9.81 K/uL (4.8-10.8)
[2020-01-24 11:11] LABS: Alanine Aminotransferase 22 U/L (12-78); Aspartate Aminotransferase 15 U/L (15-37); BUN Creatinine Ratio 16.8 (10-20); Blood Urea Nitrogen 31 mg/dl (7-18); Calcium 8.6 mg/dl (8.5-10.1); Carbon Dioxide 29 mmol/L (21-32); Chloride 108 mmol/L (98-107); Creatinine Clr Calc Pharmacy 32.3 ml/min; Est GFR (African American) 37.3; Est GFR (Non-African American) 32.2; Glucose 94 mg/dl (70-99); Magnesium 2.2 mg/dl (1.8-2.4); Potassium 4.3 mmol/L (3.5-5.1); Sodium 140 mmol/L (136-145)
[2020-01-24 11:13] LABS: INR 1.1 (0.9-1.1); Partial Thromboplastin Ratio 1.1; Partial Thromboplastin Time 29.3 Seconds (21.0-31.0); Prothrombin Time 10.9 Seconds (9.0-12.0)
[2020-01-24 11:16] LABS: Albumin Globulin Ratio 0.8 (0.9-2); Alkaline Phosphatase 73 U/L (45-117); Bilirubin,Total 0.6 mg/dl (0.2-1); Globulin 3.6 gm/dl (2.5-4.0); Total Protein 6.6 gm/dl (6.4-8.2); Troponin I < 0.015 ng/ml (0-0.045)
[2020-01-24 11:30] LABS: Appearance Urine Clear (Clear); Bacteria Urine Automated 2+ (Negative); Bilirubin Urine Negative (Negative); Blood Urine Negative (Negative); Color Urine Dark Yellow; Glucose Urine UA Negative (Negative); Ketones Urine Negative (Negative); Leukocyte Esterase Urine Negative (Negative); Nitrite Urine Negative (Negative); Protein Urine 1+ (Negative); Specific Gravity Urine 1.022 (1.000-1.030); Urobilinogen Urine Negative (Negative); pH Urine 5.5 (4.5-7.5)
[2020-01-24 11:57] LABS: Influenza A virus by PCR Neg for Influ A (Neg); Influenza B virus by PCR Neg for Influ B (Neg)
--- NOTE | 2020-01-24 13:01 | CT Scan Report ---
CT head/brain wo con CLINICAL HISTORY: altered mental status COMPARISON STUDY: 05/24/2012 TECHNIQUE: Axial CT of the brain is performed from the vertex to the skull base. IV contrast was not administered for this examination. A dose lowering technique was utilized adhering to the principles of ALARA. CT DOSE: 823.12 mGy.cm FINDINGS: No intra or extra-axial mass lesions are visualized. There is no CT evidence of acute cortical infarc tion. There is no evidence of midline shift. There is no acute hemorrhage. No calvarial fractures ar e visualized. There are patchy white matter hypodensities likely on a small vessel basis. There is mild ventricular dilatation, finding which is felt to be secondary to volume loss. There is no evidence of acute sinusitis IMPRESSION: 1. No acute intracranial findings 2. Progressive white matter disease, likely small vessel basis. Slight progression in the ventricular dilatation which is likely secondary to volume loss ACT 112: Negative or not required by law. Electronically signed by: Dante Schroeder M.D. 01/24/2020 1:00 PM
[2020-01-24] MEDS ORDERED: POLYETHYLENE (MIRALAX) 17 GM PACK PO PRN (13:38)
[2020-01-24] MEDS ORDERED: ACETAMINOPHEN 325 MG TAB PO PRN (13:38)
[2020-01-24] MEDS: SODIUM CHLORIDE 0.9% 1000ML 1,000 ML IV SCH (13:39)
[2020-01-24] MEDS: HEPARIN SOD 5,000 UNIT/0.5 ML VIAL SQ SCH ×2 (14:54→21:29)
--- NOTE | 2020-01-24 15:03 | History & Physical Report ---
Date of Service January 24, 2020 Assessment & Plan (1) Metabolic encephalopathy: (2) Possible urinary tract infection: -Admit to [facility] -Patient presenting from home with altered mental status and reports of fever -In the ED, afebrile, no leukocytosis, lactic acid normal -UA suggest possible UTI -UTI versus viral illness likely causing metabolic encephalopathy -S/p cefepime in the ED, will continue with ceftriaxone -Supportive care with IVF -Head CT negative for acute findings -Per family, patient is mostly chair/bedbound, is able to ambulate a few steps with walker and belt assist -PT/OT (3) CKD (chronic kidney disease), stage III: -Baseline creatinine runs in the mid ones -Has mild elevation today from baseline to 1.8 -Likely prerenal due to acute illness -IVF, follow renal functions -Hold lisinopril (4) HTN (hypertension): -BP currently controlled -Holding lisinopril as above -Continue atenolol (5) Gout: -Continue allopurinol (6) DVT prophylaxis: -SQ heparin History of Present Illness Chief Complaint: Altered mental status, fever Primary Care Provider: Ninfa Philip MD 89-year-old male who presents the ED for evaluation of altered mental status and fever. History is currently unobtainable from him. Daughter is the bedside who provides some history. She reports that yesterday afternoon, her father developed some confusion. He was also febrile at 101.3. He was given Tylenol with improvement in his fever. He had some nausea and gagging. No vomiting. No reports of abdominal pain or diarrhea. This morning, patient was found to be incontinent for a large amount of dark, foul-smelling urine. This is unusual for him. The daughter reports that he was very hard to wake up. EMS was called and patient was brought to the ED for further evaluation. In the ED, patient is afebrile and hemodynamically stable. No leukocytosis, normal lactic acid. UA suggest possible UTI. Patient was given IV Tylenol, IV cefepime, IVF. Allergies Allergy/AdvReac Type Severity Reaction Status Date / Time Iodinated Contrast Media Allergy Severe ANAPHALXIS Verified 01/24/20 10:37 nitrofurantoin Allergy Severe "throat Verified 01/24/20 10:37 swelled shut" clopidogrel Allergy Intermediate "flu s/s" Verified 01/24/20 10:37 Home Medications Home Medications Medication Instructions Recorded Confirmed Type albuterol sulfate 2.5 mg INHALATION BID 01/10/20 01/24/20 History albuterol sulfate [ProAir HFA] 2 puff INHALATION Q4 PRN 01/10/20 01/24/20 History allopurinol 100 mg PO DAILY 01/10/20 01/24/20 History antiox.mv no.[id number] 1 cap PO DAILY 01/10/20 01/24/20 History [I-Caps] atenolol [Tenormin] 50 mg PO BID 01/10/20 01/24/20 History benzonatate [Tessalon Perles] 100 mg PO TID PRN 01/10/20 01/24/20 History diclofenac sodium [Voltaren] 4 g TOPICAL QID PRN 01/10/20 01/24/20 History duloxetine 30 mg PO DAILY 01/10/20 01/24/20 History fluticasone propion-salmeterol 2 puff INHALATION BID 01/10/20 01/24/20 History [Advair HFA] gabapentin [Neurontin] 100 mg PO HS 01/10/20 01/24/20 History hydralazine 100 mg PO BID 01/10/20 01/24/20 History lisinopril 10 mg PO DAILY 01/10/20 01/24/20 History ondansetron HCl 4 mg PO Q6 PRN 01/10/20 01/24/20 History pantoprazole [Protonix] 40 mg PO BID PRN 01/10/20 01/24/20 History polyethylene glycol 3350 [Miralax] 17 g PO DAILY PRN 01/10/20 01/24/20 History sucralfate [Carafate] 10 ml PO ACHS PRN 01/10/20 01/24/20 History tramadol [Ultram] 50 mg PO Q6 PRN 01/10/20 01/24/20 History triamcinolone acetonide [Nasacort] 2 spray INTRANASAL BID 01/10/20 01/24/20 History Past Med/Surg History Medical History Carotid artery stenosis (Chronic) Carpal tunnel syndrome on both sides (Chronic) CKD (chronic kidney disease), stage III Gout (Chronic) HLD (hyperlipidemia) (Chronic) HTN (hypertension) (Chronic) Macular degeneration, bilateral (Chronic) Prostate cancer (Resolved) "s/p prostatectomy" Renal artery stenosis (Chronic) "with B/L stent placement" Urinary retention (Acute) Surgical History History of back surgery (Resolved) S/P appendectomy (Resolved) S/P carotid endarterectomy (Resolved) "right" S/P cataract surgery (Resolved) "B/L" S/P cholecystectomy (Resolved) S/P partial gastrectomy (Resolved) "due to ulcers" S/P rotator cuff repair (Resolved) "left" S/P total hip arthroplasty (Resolved) "B/L, with revision on right" Family History Other No pertinent family history in first degree relatives Social History Preferred Language: Dutch Communication Ability: Impaired Communication Ability Comment: lethargy Internet Marketing Manager Required: No Beliefs That Will Affect Care: None Current Living Situation: Spouse Other Information That Helps Us Care for You: No Feels Safe at Home: Yes Safety Concerns: Feels Safe At This Time Smoking Status: Former smoker Do You Dip or Chew Tobacco: No ; Second Hand Exposure: No ; Tobacco Cessation Education Requested by Patient: No Hx Alcohol Use: No Review of Systems Review of Systems: Unobtainable due to cognitive status Physical Exam Constitutional: WD/WN, vitals as above Eyes: PERRL, conjunctivae normal, anicteric sclerae ENMT: external ear and nose normal, oropharynx normal Respiratory: normal respiratory effort; no respiratory distress Auscultation: + diminished lung sounds Cardiovascular: Rate/Rhythm: regular rate and regular rhythm Vessels: normal peripheral pulses Extremities: no edema Gastrointestinal (Abdomen): normal bowel sounds, soft, nontender, no hepatosplenomegaly Musculoskeletal: Extremities: no cyanosis and no clubbing Does not follow commands to assess strength Skin: no rashes, warm and dry Neurologic: Only arouses to loud verbal stimuli and sternal rub, opens eyes however does not speak, does not follow commands, no gross focal deficit noted Psychiatric: Orientation: + not alert and + not oriented x 3 Results & Data Vital Signs (Past 12 Hours) Vital Signs Temp Pulse Resp BP Pulse Ox 01/24/20 12:15 53 L 15 134/56 L 98 01/24/20 12:00 51 L 14 127/48 L 97 01/24/20 11:45 52 L 14 126/47 L 96 01/24/20 11:30 52 L 15 127/49 L 97 01/24/20 11:15 53 L 15 141/53 H 99 01/24/20 11:05 56 L 16 96 01/24/20 11:00 55 L 15 156/66 H 100 01/24/20 10:45 53 L 15 132/50 L 97 01/24/20 10:30 53 L 15 139/51 L 100 01/24/20 10:15 57 L 16 157/62 H 100 01/24/20 10:13 36.5 C 56 L 16 167/82 H 92 01/24/20 10:00 62 15 167/82 H 100 Laboratory Results Short CBC 01/24/20 Range/Units 10:41 WBC 9.81 (4.8-10.8) K/uL Hgb 12.9 L (14.0-18.0) g/dL Hct 39.0 L (42-52) % Plt Count 174 (130-400) K/uL BMP 01/24/20 10:41 Sodium 140 Potassium 4.3 Chloride 108 H Carbon Dioxide 29 BUN 31 H Creatinine 1.83 H Glucose 94 Calcium 8.6 Cardiac Enzymes 01/24/20 Range/Units 10:41 Troponin I < 0.015 (0-0.045) ng/ml Liver Function 01/24/20 Range/Units 10:41 Total Bilirubin 0.6 (0.2-1) mg/dl AST 15 (15-37) U/L ALT 22 (12-78) U/L Alkaline Phosphatase 73 (45-117) U/L Albumin 3.0 L (3.4-5.0) gm/dl Urine 01/24/20 Range/Units 10:40 Urine Color Dark Yellow Urine Appearance Clear (Clear) Urine pH 5.5 (4.5-7.5) Ur Specific [place] 1.022 (1.000-1.030) Urine Protein 1+ H (Negative) Urine Glucose (UA) Negative (Negative) Diagnostic Findings CXR IMPRESSION: Cardiomegaly without acute process. HEAD CT IMPRESSION: 1. No acute intracranial findings 2. Progressive white matter disease, likely small vessel basis. Slight progression in the ventricular dilatation which is likely secondary to volume loss Code Status & VTE Plan Code Status Patient is a DNR as per my discussion with patient's daughter who is the bedside VTE Prophylaxis Plan VTE Prophylaxis will be ordered: Yes Supervising Physician Co-Signing Physician Notes Attending addendum The patient was seen and examined in medical floor in presence of the family members Immediate years old with multiple medical problem as mentioned in H&P and is almost bedbound Reviewed with change in mental status and fever without any significant other symptoms He remains sleepy but does not have any acute distress On examination Sleeping comfortably in bed Easily arousable Denies any significant symptoms Hemodynamically stable with blood pressure at the higher side systolic of 182 Chest-decreased breath sounds bilaterally without any crackles Heart-S1-S2, Abdomen-benign Extremities-no edema, osteoarthritic changes, no swelling and/or bruising involving the right knee His admission labs and imaging studies reviewed Likely has viral illness/UTI to be ruled out Has been getting intravenous antibiotic and minimal amount of IV fluid Agree with assessment plan as outlined above by Kristi Maher
--- NOTE | 2020-01-24 15:03 | Electrocardiogram Report ---
Test Reason : Blood Pressure : / mmHG Vent. Rate : 055 BPM Atrial Rate : 055 BPM P-R Int : 174 ms QRS Dur : 086 ms QT Int : 454 ms P-R-T Axes : 060 -17 -12 degrees QTc Int : 434 ms Sinus bradycardia Abnormal ECG When compared with ECG of 26-FEB-2018 06:23, Premature supraventricular complexes are no longer Present Confirmed by Javi Dixon ([id number]) on 01/24/2020 3:03:03 PM Referred By: Confirmed By:Davey Dixon
--- NOTE | 2020-01-24 17:41 | Emergency Department Note ---
Entered by Ernie Baeza acting as a scribe for Kobe Ennis MD History of Present Illness General Chief complaint: Illness Time Seen by Provider: 01/24/20 10:00 Source: patient and family (daughter) Mode of arrival: EMS Limitations: no limitations History of Present Illness Onset (ago): hour(s) (this morning) Location: head Pain Consistency: + constant (AMS) Current Pain Intensity: 0 Quality: + other (altered mental status) Treatments prior to arrival: other (Saline) The patient is a 89 year old male who presents to the Emergency Room with complaints of constant altered mental status starting this morning. The patient's daughter states the patient did not eat much yesterday and had a fever of 101.2. She states the patient was given Tylenol last night. She states the patient did not drink much yesterday. She states this morning the patient was unresponsive. EMS states the patient was covered in dark urine. EMS notes they gave the patient 500 cc of saline and his symptoms slightly improved. The daughter states the patient had prostate cancer and had his prostate removed. She states the patient got the flu shot this year and has not been around anyone else with the flu. She states the patient never had a bad urinary infection or sepsis. She states the patient has chronic back problems so he does not move around much. She denies the patient going on any travel recently. The patient denies having any pain. Home Medications Home Medications Medication Instructions Recorded Confirmed Type albuterol sulfate 2.5 mg INHALATION BID 01/10/20 01/24/20 History albuterol sulfate [ProAir HFA] 2 puff INHALATION Q4 PRN 01/10/20 01/24/20 History allopurinol 100 mg PO DAILY 01/10/20 01/24/20 History antiox.mv [id number] 1 cap PO DAILY 01/10/20 01/24/20 History [I-Caps] atenolol [Tenormin] 50 mg PO BID 01/10/20 01/24/20 History benzonatate [Tessalon Perles] 100 mg PO TID PRN 01/10/20 01/24/20 History diclofenac sodium [Voltaren] 4 g TOPICAL QID PRN 01/10/20 01/24/20 History duloxetine 30 mg PO DAILY 01/10/20 01/24/20 History fluticasone propion-salmeterol 2 puff INHALATION BID 01/10/20 01/24/20 History [Advair HFA] gabapentin [Neurontin] 100 mg PO HS 01/10/20 01/24/20 History hydralazine 100 mg PO BID 01/10/20 01/24/20 History lisinopril 10 mg PO DAILY 01/10/20 01/24/20 History ondansetron HCl 4 mg PO Q6 PRN 01/10/20 01/24/20 History pantoprazole [Protonix] 40 mg PO BID PRN 01/10/20 01/24/20 History polyethylene glycol 3350 [Miralax] 17 g PO DAILY PRN 01/10/20 01/24/20 History sucralfate [Carafate] 10 ml PO ACHS PRN 01/10/20 01/24/20 History tramadol [Ultram] 50 mg PO Q6 PRN 01/10/20 01/24/20 History triamcinolone acetonide [Nasacort] 2 spray INTRANASAL BID 01/10/20 01/24/20 H istory Allergies Allergy/AdvReac Type Severity Reaction Status Date / Time Iodinated Contrast Media Allergy Severe ANAPHALXIS Verified 01/24/20 10:37 nitrofurantoin Allergy Severe "throat Verified 01/24/20 10:37 swelled shut" clopidogrel Allergy Intermediate "flu s/s" Verified 01/24/20 10:37 Past Med/Surg History Medical History Carotid artery stenosis (Chronic) Carpal tunnel syndrome on both sides (Chronic) CKD (chronic kidney disease), stage III Gout (Chronic) HLD (hyperlipidemia) (Chronic) HTN (hypertension) (Chronic) Macular degeneration, bilateral (Chronic) Prostate cancer (Resolved) "s/p prostatectomy" Renal artery stenosis (Chronic) "with B/L stent placement" Urinary retention (Acute) Surgical History History of back surgery (Resolved) S/P appendectomy (Resolved) S/P carotid endarterectomy (Resolved) "right" S/P cataract surgery (Resolved) "B/L" S/P cholecystectomy (Resolved) S/P partial gastrectomy (Resolved) "due to ulcers" S/P rotator cuff repair (Resolved) "left" S/P total hip arthroplasty (Resolved) "B/L, with revision on right" Family History Other No pertinent family history in first degree relatives Social History Preferred Language: Mongolian Communication Ability: Impaired Communication Ability Comment: lethargy Marking Machine Tender Required: No Beliefs That Will Affect Care: None Current Living Situation: Spouse Other Information That Helps Us Care for You: No Feels Safe at Home: Yes Safety Concerns: Feels Safe At This Time Smoking Status: Former smoker Do You Dip or Chew Tobacco: No ; Second Hand Exposure: No ; Tobacco Cessation Education Requested by Patient: No Hx Alcohol Use: No Review of Systems See HPI for pertinent positives & negatives. and A total of 10 systems reviewed and were otherwise negative Physical Exam Vital Signs Vital Signs - 24 hr 01/24/20 10:00 01/24/20 10:13 01/24/20 10:15 Temperature 36.5 C Temperature Source Oral Pulse Rate 62 56 L 57 L Pulse Rate from SpO2 Sensor 55 L 57 L Pulse Rhythm Regular Respiratory Rate 15 16 16 Respiratory Effort / Characteristics Spontaneous Respiratory Pattern Regular Blood Pressure 167/82 H 167/82 H 157/62 H Blood Pressure Mean 111 110 100 Pulse Oximetry 100 92 100 Oxygen Delivery Method Nasal Cannula Room Air Nasal Cannula Oxygen Flow Rate 2 2 Sepsis Recent Fever Within 48 Hours Yes Sepsis New/Unexplained Change in Mental Status Yes Sepsis Action Taken by Nursing Physician Notified 01/24/20 10:30 01/24/20 10:45 01/24/20 11:00 Temperature Temperature Source Pulse Rate 53 L 53 L 55 L Pulse Rate from SpO2 Sensor 53 L 53 L 55 L Pulse Rhythm Respiratory Rate 15 15 15 Respiratory Effort / Characteristics Respiratory Pattern Blood Pressure 139/51 L 132/50 L 156/66 H Blood Pressure Mean 77 70 98 Pulse Oximetry 100 97 100 Oxygen Delivery Method Nasal Cannula Nasal Cannula Nasal Cannula Oxygen Flow Rate 2 2 2 Sepsis Recent Fever Within 48 Hours Sepsis New/Unexplained Change in Mental Status Sepsis Action Taken by Nursing 01/24/20 11:05 01/24/20 11:15 01/24/20 11:30 Temperature Temperature Source Pulse Rate 56 L 53 L 52 L Pulse Rate from SpO2 Sensor 54 L 53 L Pulse Rhythm Regular Respiratory Rate 16 15 15 Respiratory Effort / Characteristics Respiratory Pattern Blood Pressure 141/53 H 127/49 L Blood Pressure Mean 78 62 Pulse Oximetry 96 99 97 Oxygen Delivery Method Nasal Cannula Oxygen Flow Rate 2 Sepsis Recent Fever Within 48 Hours Sepsis New/Unexplained Change in Mental Status Sepsis Action Taken by Nursing 01/24/20 11:45 Temperature Temperature Source Pulse Rate 52 L Pulse Rate from SpO2 Sensor 52 L Pulse Rhythm Respiratory Rate 14 Respiratory Effort / Characteristics Respiratory Pattern Blood Pressure 126/47 L Blood Pressure Mean 60 Pulse Oximetry 96 Oxygen Delivery Method Oxygen Flow Rate Sepsis Recent Fever Within 48 Hours Sepsis New/Unexplained Change in Mental Status Sepsis Action Taken by Nursing GENERAL: Patient is in no acute distress. HEENT: No acute trauma, normocephalic atraumatic, mucous membranes moist, no nasal congestion, no scleral icterus. NECK: No stridor, no adenopathy, no meningismus, trachea is midline. LUNGS: Clear to auscultation bilaterally, no wheeze, no rhonchi, breath sounds equal. HEART: Without murmurs gallops or rubs, regular rate and rhythm. ABDOMEN: Soft, nontender, bowel sounds positive, no hernias, no peritonitis. GROIN: Has an apparent penile implant. Circumcised. No scrotal erythema. EXTREMITIES: No cyanosis or edema, full range of motion of all the joints without pain or difficulty, no signs for acute trauma. NEUROLOGIC: Somnolent but answers simple questions. Moves all extremities. SKIN: No rash, no jaundice, no diaphoresis. Course Course 1004: The patient was evaluated in room B11B, and a complete history and physical examination were performed. 1139: I discussed the patient's case with Kristi CONNOR. Dr. Gunnar Valencia [facility] Hospitalist will evaluate the patient for further management. 1147: I updated the patient's family on the patient's labs and imaging results. I recommended admission, and the family agreed with the plan. Administered Medications Heparin Sodium (Porcine) (Heparin Sodium (Porcine)) 5,000 units SQ Q8 SILVANO Stop: 02/23/20 13:59 Last Admin: 01/24/20 14:54 Dose: 5,000 units Documented by: [id number] Cosigned by: [id number] Sodium Chloride (Nss 1000ml) 1,000 mls @ 80 mls/hr IV .[id number] SILVANO Stop: 02/23/20 13:37 Last Admin: 01/24/20 13:39 Dose: 80 mls/hr Documented by: [id number] Ceftriaxone Sodium 2,000 mg/ (Dextrose) 50 ml in 70 mls @ 100 mls/hr IV Q24H SILVANO; Protocol Stop: 01/29/20 17:59 Last Infusion: 01/24/20 18:43 Dose: 0 mls/hr Documented by: [id number] Admin: 01/24/20 17:52 Dose: 100 mls/hr Documented by: [id number] Discontinued Medications Sodium Chloride (Nss 1000ml) 1,000 mls @ 999 mls/hr IV .[id number] ONE Stop: 01/24/20 11:12 Last Infusion: 01/24/20 12:26 Dose: 0 mls/hr Documented by: [id number] Admin: 01/24/20 10:30 Dose: 999 mls/hr Documented by: [id number] Cefepime HCl (Maxipime) 2,000 mg in 20 mls @ 5 mls/min IV NOW STA; Protocol Stop: 01/24/20 10:15 Last Admin: 01/24/20 10:55 Dose: 5 mls/min Documented by: [id number] Acetaminophen (Ofirmev) 1,000 mg in 100 mls @ 400 mls/hr IV NOW STA Stop: 01/24/20 10:28 Last Infusion: 01/24/20 12:26 Dose: 0 mls/hr Documented by: [id number] Admin: 01/24/20 10:40 Dose: 400 mls/hr Documented by: [id number] Critical Care Time Critical Care Time: Yes Total Critical Care Time: 34 I have personally spent 34 minutes of critical care time in the direct management of this patient. This includes bedside care, interpretation of diagnostic studies, and testing, discussion with consultants, patient, and family members, and other required patient management activities. This 34 minutes is in excess of all separately billable procedures. Medical Decision Making Differential Diagnosis Differential Diagnosis includes but is not limited to UTI, pneumonia, sepsis, bacteremia, dehydration, renal or liver failure, and electrolyte or metabolic abnormality. Medical Records Attestation: I reviewed the patient's medical records. The patient was in the ED on January 10 for abdominal pain. He was discharged. Home Medications Current Medication List: was personally reviewed by me Laboratory Data Attestation: I reviewed the patient's lab results. Result diagrams: 01/24/20 10:41 01/24/20 10:41 Lab Results 01/24/20 01/24/20 01/24/20 Range/Units 10:40 10:40 10:40 WBC (4.8-10.8) K/uL RBC (4.7-6.1) M/uL Hgb (14.0-18.0) g/dL Hct (42-52) % MCV (80-100) fL MCH (25-34) pg MCHC (32-36) g/dL RDW Std Deviation (36.4-46.3) fL RDW Coeff of Van (11.5-14.5) % Plt Count (130-400) K/uL MPV (7.4-10.4) fL Immature Gran % (Auto) % Neut % (Auto) % Lymph % (Auto) % [place] % (Auto) % Eos % (Auto) % Baso % (Auto) % Immature Gran # (Auto) (0.00-0.02) K/uL Neut # (Auto) (1.4-6.5) K/uL Lymph # (Auto) (1.2-3.4) K/uL [place] # (Auto) (0.11-0.59) K/uL Eos # (Auto) (0-0.5) K/uL Baso # (Auto) (0-0.2) K/uL PT (9.0-12.0) Seconds INR (0.9-1.1) APTT (21.0-31.0) Seconds PTT Ratio Sodium (136-145) mmol/L Potassium (3.5-5.1) mmol/L Chloride (98-107) mmol/L Carbon Dioxide (21-32) mmol/L Anion Gap (3-11) BUN (7-18) mg/dl Creatinine (0.6-1.4) mg/dl Est Cr Clr Drug Dosing ml/min Est GFR ( Amer) Est GFR (Non-Af Amer) BUN/Creatinine Ratio (10-20) Glucose (70-99) mg/dl Lactate (0.4-2.0) mmol/L Calcium (8.5-10.1) mg/dl Magnesium (1.8-2.4) mg/dl Total Bilirubin (0.2-1) mg/dl AST (15-37) U/L ALT (12-78) U/L Alkaline Phosphatase (45-117) U/L Ammonia < 10.0 L (11-32) umol/L Troponin I (0-0.045) ng/ml Total Protein (6.4-8.2) gm/dl Albumin (3.4-5.0) gm/dl Globulin (2.5-4.0) gm/dl Albumin/Globulin Ratio (0.9-2) Procalcitonin (0-0.5) ng/ml Urine Color Dark Yellow Urine Appearance Clear (Clear) Urine pH 5.5 (4.5-7.5) Ur Specific [place] 1.022 (1.000-1.030) Urine Protein 1+ H (Negative) Urine Glucose (UA) Negative (Negative) Urine Ketones Negative (Negative) Urine Blood Negative (Negative) Urine Nitrite Negative (Negative) Urine Bilirubin Negative (Negative) Urine Urobilinogen Negative (Negative) Ur Leukocyte Esterase Negative (Negative) Urine WBC (Auto) 1-5 (0-5) /hpf Urine RBC (Auto) 5-10 H (0-4) /hpf U Hyaline Cast (Auto) 1-5 (0-5) /lpf U Epithel Cells (Auto) 10-20 H (0-5) /lpf Urine Bacteria (Auto) 2+ H (Negative) Influenza Type A (PCR) Neg for Influ A (Neg) Influenza Type B (PCR) Neg for Influ B (Neg) 01/24/20 01/24/20 01/24/20 Range/Units 10:41 10:41 10:41 WBC 9.81 (4.8-10.8) K/uL RBC 4.16 L (4.7-6.1) M/uL Hgb 12.9 L (14.0-18.0) g/dL Hct 39.0 L (42-52) % MCV 93.8 (80-100) fL MCH 31.0 (25-34) pg MCHC 33.1 (32-36) g/dL RDW Std Deviation 49.5 H (36.4-46.3) fL RDW Coeff of Van 14.5 (11.5-14.5) % Plt Count 174 (130-400) K/uL MPV 10.6 H (7.4-10.4) fL Immature Gran % (Auto) 0.1 % Neut % (Auto) 74.6 % Lymph % (Auto) 11.7 % [place] % (Auto) 12.9 % Eos % (Auto) 0.5 % Baso % (Auto) 0.2 % Immature Gran # (Auto) 0.01 (0.00-0.02) K/uL Neut # (Auto) 7.31 H (1.4-6.5) K/uL Lymph # (Auto) 1.15 L (1.2-3.4) K/uL [place] # (Auto) 1.27 H (0.11-0.59) K/uL Eos # (Auto) 0.05 (0-0.5) K/uL Baso # (Auto) 0.02 (0-0.2) K/uL PT 10.9 (9.0-12.0) Seconds INR 1.1 (0.9-1.1) APTT 29.3 (21.0-31.0) Seconds PTT Ratio 1.1 Sodium 140 (136-145) mmol/L Potassium 4.3 (3.5-5.1) mmol/L Chloride 108 H (98-107) mmol/L Carbon Dioxide 29 (21-32) mmol/L Anion Gap 3.0 (3-11) BUN 31 H (7-18) mg/dl Creatinine 1.83 H (0.6-1.4) mg/dl Est Cr Clr Drug Dosing 32.3 ml/min Est GFR ( Amer) 37.3 Est GFR (Non-Af Amer) 32.2 BUN/Creatinine Ratio 16.8 (10-20) Glucose 94 (70-99) mg/dl Lactate (0.4-2.0) mmol/L Calcium 8.6 (8.5-10.1) mg/dl Magnesium 2.2 (1.8-2.4) mg/dl Total Bilirubin 0.6 (0.2-1) mg/dl AST 15 (15-37) U/L ALT 22 (12-78) U/L Alkaline Phosphatase 73 (45-117) U/L Ammonia (11-32) umol/L Troponin I < 0.015 (0-0.045) ng/ml Total Protein 6.6 (6.4-8.2) gm/dl Albumin 3.0 L (3.4-5.0) gm/dl Globulin 3.6 (2.5-4.0) gm/dl Albumin/Globulin Ratio 0.8 L (0.9-2) Procalcitonin (0-0.5) ng/ml Urine Color Urine Appearance (Clear) Urine pH (4.5-7.5) Ur Specific [place] (1.000-1.030) Urine Protein (Negative) Urine Glucose (UA) (Negative) Urine Ketones (Negative) Urine Blood (Negative) Urine Nitrite (Negative) Urine Bilirubin (Negative) Urine Urobilinogen (Negative) Ur Leukocyte Esterase (Negative) Urine WBC (Auto) (0-5) /hpf Urine RBC (Auto) (0-4) /hpf U Hyaline Cast (Auto) (0-5) /lpf U Epithel Cells (Auto) (0-5) /lpf Urine Bacteria (Auto) (Negative) Influenza Type A (PCR) (Neg) Influenza Type B (PCR) (Neg) 01/24/20 01/24/20 Range/Units 10:41 10:41 WBC (4.8-10.8) K/uL RBC (4.7-6.1) M/uL Hgb (14.0-18.0) g/dL Hct (42-52) % MCV (80-100) fL MCH (25-34) pg MCHC (32-36) g/dL RDW Std Deviation (36.4-46.3) fL RDW Coeff of Van (11.5-14.5) % Plt Count (130-400) K/uL MPV (7.4-10.4) fL Immature Gran % (Auto) % Neut % (Auto) % Lymph % (Auto) % [place] % (Auto) % Eos % (Auto) % Baso % (Auto) % Immature Gran # (Auto) (0.00-0.02) K/uL Neut # (Auto) (1.4-6.5) K/uL Lymph # (Auto) (1.2-3.4) K/uL [place] # (Auto) (0.11-0.59) K/uL Eos # (Auto) (0-0.5) K/uL Baso # (Auto) (0-0.2) K/uL PT (9.0-12.0) Seconds INR (0.9-1.1) APTT (21.0-31.0) Seconds PTT Ratio Sodium (136-145) mmol/L Potassium (3.5-5.1) mmol/L Chloride (98-107) mmol/L Carbon Dioxide (21-32) mmol/L Anion Gap (3-11) BUN (7-18) mg/dl Creatinine (0.6-1.4) mg/dl Est Cr Clr Drug Dosing ml/min Est GFR ( Amer) Est GFR (Non-Af Amer) BUN/Creatinine Ratio (10-20) Glucose (70-99) mg/dl Lactate 1.2 (0.4-2.0) mmol/L Calcium (8.5-10.1) mg/dl Magnesium (1.8-2.4) mg/dl Total Bilirubin (0.2-1) mg/dl AST (15-37) U/L ALT (12-78) U/L Alkaline Phosphatase (45-117) U/L Ammonia (11-32) umol/L Troponin I (0-0.045) ng/ml Total Protein (6.4-8.2) gm/dl Albumin (3.4-5.0) gm/dl Globulin (2.5-4.0) gm/dl Albumin/Globulin Ratio (0.9-2) Procalcitonin 0.30 (0-0.5) ng/ml Urine Color Urine Appearance (Clear) Urine pH (4.5-7.5) Ur Specific [place] (1.000-1.030) Urine Protein (Negative) Urine Glucose (UA) (Negative) Urine Ketones (Negative) Urine Blood (Negative) Urine Nitrite (Negative) Urine Bilirubin (Negative) Urine Urobilinogen (Negative) Ur Leukocyte Esterase (Negative) Urine WBC (Auto) (0-5) /hpf Urine RBC (Auto) (0-4) /hpf U Hyaline Cast (Auto) (0-5) /lpf U Epithel Cells (Auto) (0-5) /lpf Urine Bacteria (Auto) (Negative) Influenza Type A (PCR) (Neg) Influenza Type B (PCR) (Neg) Imaging Data Radiologist's Impression: Radiology results as stated below per my review and the radiologist's interpretation: XR chest 1V portable HISTORY: 89 years-old Male SEPSIS acute sepsis COMPARISON: Chest radiograph 02/26/2018 TECHNIQUE: Portable AP view of the chest FINDINGS: Cardiac silhouette is mildly enlarged, unchanged. Increased lucency of the lungs suggest emphysema. Chronic right hemidiaphragmatic elevation. Calcified plaque of the thoracic aortic arch. No pneumothorax, pleural effusion, focal airspace consolidation or overt pulmonary edema. Surgical clips are noted about the right neck. Degenerative changes of the shoulders and spine. IMPRESSION: Cardiomegaly without acute process. ACT 112: Negative or not required by law. The above report was generated using voice recognition software. It may contain grammatical, syntax or spelling errors. Electronically signed by: Kleber Gandhi M.D. 01/24/2020 10:45 AM ECG Data Attestation: I personally reviewed and interpreted this ECG as follows: Indication: + altered mental status Rate (beats per minute): 55 Rhythm: + sinus bradycardia ECG Intervals/blocks: + Normal QT-c (at 434) ECG ST segments: no ST elevation ECG Findings: no PVCs Blood Pressure Blood Pressure Findings: Elevated blood pressure Blood Pressure Disposition: further management by hospitalist [facility] Narrative There is no leukocytosis or worrisome anemia. No coagulopathy. Renal panel testing showed a creatinine elevation but this is baseline looking back at previous testing. Lactic acid level was not elevated making severe sepsis less likely. Ammonia level was not elevated. No concerning liver enzyme elevation. EKG shows a sinus rhythm, no acute ischemia. Cardiac enzyme testing x1 is not consistent with acute cardiac injury. Urinalysis does show bacteria and some red cells, this was a catheterized specimen and thus, infection does seem likely. Influenza testing was negative. Chest film did not show pneumonia or CHF. On exam, there was no cellulitis. The patient presents with a fever and change in mental status. He had lost urinary continence earlier. He was hypoxic earlier The patient appears to have early sepsis from what is likely a urinary source. He did receive IV saline for hydration. He was given IV cefepime as empiric antibiotic coverage. He received IV Tylenol for his fever. The patient presents with a fever, change in mental status and weakness. He appears to have early sepsis from a urinary source. Hospitalization is warranted. I did speak to the patient and case management. The on-call hospitalist was consulted. Continuous Cardiac Monitoring: An order was placed for continuous cardiac monitoring. The monitor shows a rate of 54 with a sinus bradycardia. Impression & Plan Change in mental status, Fever, UTI (urinary tract infection) Discharge Plan Visit Data *Final* Discharge Date/Time: 01/24/20 12:30 Chief Complaint: Illness ED Provider: Kobe Ennis Discharge Problem: Change in mental status, Fever, UTI (urinary tract infection) Patient Disposition: Admitted As Inpatient Discharge Instructions Interventions: ED Discharge Assessment Last Done: 01/24/20 12:30 The carlitosibe's documentation has been prepared under my direction and personally reviewed by me in its entirety. I confirm that the note above accurately reflects all work, treatment, procedures, and medical decision making performed by me.
[2020-01-24] MEDS: cefTRIAXone SODIUM 2,000 MG in DEXTROSE 5% 50 ML/50 ML BAG IV SCH (17:52)
[2020-01-24] MEDS: ALBUTEROL 0.083% NEBU SOLN 3 ML VIAL INH SCH (19:20)
[2020-01-24] MEDS: ATENOLOL 50 MG TABLET PO SCH (20:18)
[2020-01-24] MEDS ORDERED: HydrALAZINE TAB 50 MG TAB PO SCH (21:00)
[2020-01-25] MEDS: SODIUM CHLORIDE 0.9% 1000ML 1,000 ML IV SCH (00:21)
[2020-01-25] MEDS: HydrALAZINE TAB 50 MG TAB PO SCH ×4 (01:24→20:21)
[2020-01-25] MEDS: HEPARIN SOD 5,000 UNIT/0.5 ML VIAL SQ SCH ×3 (05:20→20:22)
[2020-01-25 07:22] LABS: Hematocrit (blood only) 38.2 % (42-52); Hemoglobin 12.4 g/dL (14.0-18.0); Mean Corpuscular Hemoglobin 30.2 pg (25-34); Mean Corpuscular Hgb Conc 32.5 g/dL (32-36); Mean Corpuscular Volume 93.2 fL (80-100); Mean Platelet Volume 10.9 fL (7.4-10.4); Platelet Count 156 K/uL (130-400); RDW Coefficient of Variation 14.4 % (11.5-14.5); RDW Standard Deviation 48.9 fL (36.4-46.3); White Blood Count 7.67 K/uL (4.8-10.8)
[2020-01-25] MEDS: ALBUTEROL 0.083% NEBU SOLN 3 ML VIAL INH SCH ×2 (07:34→20:03)
[2020-01-25 07:58] LABS: BUN Creatinine Ratio 21.4 (10-20); Calcium 8.8 mg/dl (8.5-10.1); Creatinine Clr Calc Pharmacy 43.4 ml/min; Est GFR (African American) 53.5; Est GFR (Non-African American) 46.1; Potassium 4.1 mmol/L (3.5-5.1)
[2020-01-25] MEDS: FLUTICASONE/VILANTEROL 100/25MCG 14 PUFFS/INHALER INH SCH (08:17)
[2020-01-25] MEDS: allopurinoL 100 MG TAB PO SCH (08:18)
[2020-01-25] MEDS: ATENOLOL 50 MG TABLET PO SCH ×2 (08:18→20:21)
[2020-01-25] MEDS ORDERED: [UNRECOGNIZED DRUG - REMARK] PO SCH (09:00)
--- NOTE | 2020-01-25 15:16 | Hospitalist Progress Note ---
Date of Service January 25, 2020 Assessment & Plan (1) Metabolic encephalopathy: Due to UTI CT head showed no acute intracranial findings No focal neuro deficit Clinically improves Fall precaution (2) Possible urinary tract infection: Present on admission with altered mental status and fever In the ED, afebrile, no leukocytosis, lactic acid normal Urine cx positive for gram negative bacilli Received cefepime in the ED Continue ceftriaxone for now Blood cx pending Follow up urine sensitivity (3) CKD (chronic kidney disease), stage III: Creatinine on admission 1.8, Baseline creatinine runs in the mid ones Received IVF Creatinine back to normal Lisinopril on hold Continue monitor BMP (4) HTN (hypertension): BP elevated Will resume Lisinopril Continue atenolol Will add Hydralazine prn (5) Gout: Continue allopurinol (6) DVT prophylaxis: SQ heparin Admission and Anticipated Discharge Date Admission Date: January 24, 2020 Subjective Pt was seen and examined Lying in bed with no distress with son and daughter in law at bedside Pt said that he feels much better He said that his strength seems to improve Denies any chest pain, palpitation, dizziness and SOB Physical Exam Physical Exam: General- No acute distress Head- atraumatic Eyes- PERRL, EOMI, ENT- oropharynx clear Neck- supple, no JVD Lungs- Diminished BS Heart- regular rhythm; no murmur Abdomen- normal bowel sounds, soft, nontender Extremities- no calf tenderness Neuro- alert, oriented x 3; PERRL, EOMI; no facial palsy; no dysarthria Skin- warm & dry Results & Data ([facility]) Vital Signs (Past 12 Hours) Vital Signs Temp Pulse Resp BP Pulse Ox 01/25/20 07:34 76 18 97 01/25/20 06:42 37.3 C 68 16 167/71 H 92 01/25/20 04:27 176/73 H
[2020-01-25] MEDS: cefTRIAXone SODIUM 2,000 MG in DEXTROSE 5% 50 ML/50 ML BAG IV SCH (17:27)
[2020-01-26] MEDS: HEPARIN SOD 5,000 UNIT/0.5 ML VIAL SQ SCH ×2 (06:11→14:00)
[2020-01-26] MEDS: ALBUTEROL 0.083% NEBU SOLN 3 ML VIAL INH SCH (08:01)
[2020-01-26] MEDS: ATENOLOL 50 MG TABLET PO SCH (08:26)
[2020-01-26] MEDS: FLUTICASONE/VILANTEROL 100/25MCG 14 PUFFS/INHALER INH SCH (08:26)
[2020-01-26] MEDS: HydrALAZINE TAB 50 MG TAB PO SCH ×2 (08:27→14:00)
[2020-01-26] MEDS: allopurinoL 100 MG TAB PO SCH (08:27)
--- NOTE | 2020-01-26 14:46 | Hospitalist Progress Note ---
Date of Service January 26, 2020 Assessment & Plan (1) Metabolic encephalopathy: Due to UTI CT head showed no acute intracranial findings No focal neuro deficit Clinically improves Fall precaution (2) UTI (urinary tract infection): Present on admission with altered mental status and fever In the ED, afebrile, no leukocytosis, lactic acid normal Urine cx positive for gram negative bacilli (Ecoli ) pansensitive Received cefepime in the ED On ceftriaxone for now, will transition to Keflex Blood cx no growth so far (3) CKD (chronic kidney disease), stage III: Creatinine on admission 1.8, Baseline creatinine runs in the mid ones Received IVF Creatinine back to normal Continue monitor BMP (4) HTN (hypertension): BP elevated Lisinopril resumed Continue atenolol Continue monitor (5) Gout: Continue allopurinol (6) DVT prophylaxis: SQ heparin Disposition Will discharge home today Admission and Anticipated Discharge Date Admission Date: January 24, 2020 Subjective Pt was seen and examined Sitting in chair with no distress Pt said he feels much better He said that he strength feels much better Family at bedside said that he is back to his baseline Denies any chest pain, palpitation, dizziness and SOB Physical Exam Physical Exam: General- No acute distress Head- atraumatic Eyes- PERRL, EOMI, ENT- oropharynx clear Neck- supple, no JVD Lungs- Diminished BS Heart- regular rhythm; no murmur Abdomen- normal bowel sounds, soft, nontender Extremities- no calf tenderness Neuro- alert, oriented x 3; PERRL, EOMI; no facial palsy; no dysarthria Skin- warm & dry Results & Data ([facility]) Vital Signs (Past 12 Hours) Vital Signs Temp Pulse Resp BP Pulse Ox 01/26/20 08:02 85 18 96 01/26/20 07:31 37.0 C 87 16 169/76 H 95
[2020-01-26] MEDS ORDERED: cephALEXin 500 MG CAP PO SCH (15:35)
[2020-01-27] MEDS ORDERED: lisinopriL 10 MG TAB PO SCH (09:00)
--- NOTE | 2020-01-28 08:37 | Discharge Summary ---
Date of Service January 26, 2020 Admission HPI Per Admitting Provider 89-year-old male who presents the ED for evaluation of altered mental status and fever. History is currently unobtainable from him. Daughter is the bedside who provides some history. She reports that yesterday afternoon, her father developed some confusion. He was also febrile at 101.3. He was given Tylenol with improvement in his fever. He had some nausea and gagging. No vomiting. No reports of abdominal pain or diarrhea. This morning, patient was found to be incontinent for a large amount of dark, foul-smelling urine. This is unusual for him. The daughter reports that he was very hard to wake up. EMS was called and patient was brought to the ED for further evaluation. In the ED, patient is afebrile and hemodynamically stable. No leukocytosis, normal lactic acid. UA suggest possible UTI. Patient was given IV Tylenol, IV cefepime, IVF. Admission Exam Per Admitting Provider Constitutional: WD/WN, vitals as above Eyes: PERRL, conjunctivae normal, anicteric sclerae ENMT: external ear and nose normal, oropharynx normal Respiratory: normal respiratory effort; no respiratory distress Auscultation: + diminished lung sounds Cardiovascular: regular rate and regular rhythm Vessels: normal peripheral pulses Extremities: no edema Gastrointestinal: normal bowel sounds, soft, nontender, no hepatosplenomegaly Musculoskeletal: no cyanosis and no clubbing Does not follow commands to assess strength Skin: no rashes, warm and dry Neurologic: Only arouses to loud verbal stimuli and sternal rub, opens eyes however does not speak, does not follow commands, no gross focal deficit noted Psychiatric: Orientation: + not alert and + not oriented x 3 Principal Diagnosis Metabolic encephalopathy: UTI (urinary tract infection): CKD (chronic kidney disease), stage III: HTN (hypertension): Gout: Discharge Exam General- No acute distress Head- atraumatic Eyes- PERRL, EOMI, ENT- oropharynx clear Neck- supple, no JVD Lungs- Diminished BS Heart- regular rhythm; no murmur Abdomen- normal bowel sounds, soft, nontender Extremities- no calf tenderness Neuro- alert, oriented x 3; PERRL, EOMI; no facial palsy; no dysarthria Skin- warm & dry Discharge Data Allergies Allergy/AdvReac Type Severity Reaction Status Date / Time Iodinated Contrast Media Allergy Severe ANAPHALXIS Verified 01/24/20 10:37 nitrofurantoin Allergy Severe "throat Verified 01/24/20 10:37 swelled shut" clopidogrel Allergy Intermediate "flu s/s" Verified 01/24/20 10:37 Consultations 01/24/20 11:40 ED Decision to Admit Stat 01/24/20 13:38 Consult Case Management - Discharge Planning Routine Ordered Studies 01/24/20 12:14 CT head/brain wo con Routine XR chest 1V portable HISTORY: 89 years-old Male SEPSIS acute sepsis COMPARISON: Chest radiograph 02/26/2018 TECHNIQUE: Portable AP view of the chest FINDINGS: Cardiac silhouette is mildly enlarged, unchanged. Increased lucency of the lungs suggest emphysema. Chronic right hemidiaphragmatic elevation. Calcified plaque of the thoracic aortic arch. No pneumothorax, pleural effusion, focal airspace consolidation or overt pulmonary edema. Surgical clips are noted about the right neck. Degenerative changes of the shoulders and spine. IMPRESSION: Cardiomegaly without acute process. ACT 112: Negative or not required by law. The above report was generated using voice recognition software. It may contain grammatical, syntax or spelling errors. Electronically signed by: Kleber Gandhi M.D. 01/24/2020 10:45 AM Dictated: 01/24/20 1044 Transcribed: 01/24/[address] head/brain wo con CLINICAL HISTORY: altered mental status COMPARISON STUDY: 05/24/2012 TECHNIQUE: Axial CT of the brain is performed from the vertex to the skull base. IV contrast was not administered for this examination. A dose lowering technique was utilized adhering to the principles of ALARA. CT DOSE: 823.12 mGy.cm FINDINGS: No intra or extra-axial mass lesions are visualized. There is no CT evidence of acute cortical infarction. There is no evidence of midline shift. There is no acute hemorrhage. No calvarial fractures are visualized. There are patchy white matter hypodensities likely on a small vessel basis. There is mild ventricular dilatation, finding which is felt to be secondary to volume loss. There is no evidence of acute sinusitis IMPRESSION: 1. No acute intracranial findings 2. Progressive white matter disease, likely small vessel basis. Slight progression in the ventricular dilatation which is likely secondary to volume loss ACT 112: Negative or not required by law. Electronically signed by: Dante Schroeder M.D. 01/24/2020 1:00 PM Dictated: 01/24/20 1258 Transcribed: 01/24/20 1258 Hospital Course (1) Metabolic encephalopathy: Due to UTI CT head showed no acute intracranial findings No focal neuro deficit Clinically improves Fall precaution (2) UTI (urinary tract infection): Present on admission with altered mental status and fever In the ED, afebrile, no leukocytosis, lactic acid normal Urine cx positive for gram negative bacilli (Ecoli ) pansensitive Received cefepime in the ED On ceftriaxone for now, will transition to Keflex Blood cx no growth so far (3) CKD (chronic kidney disease), stage III: Creatinine on admission 1.8, Baseline creatinine runs in the mid ones Received IVF Creatinine back to normal Continue monitor BMP (4) HTN (hypertension): BP elevated Lisinopril resumed Continue atenolol Continue monitor (5) Gout: Continue allopurinol (6) DVT prophylaxis: SQ heparin Disposition Will discharge home today Total Time Total Time Spent Total Time Spent (In Minutes): 35 minutes Total Time Includes: Examination of the Patient, Discharge Planning, Medication Reconciliation, Communication With Other Providers and Other Discharge Plan Discharge Items Patient Disposition: Home - Home Health Services Reason For Visit: FEVER,ALTERED MENTAL STATUS Discharge Diagnosis: Metabolic encephalopathy: UTI (urinary tract infection): CKD (chronic kidney disease), stage III: HTN (hypertension): Gout: Activity: Resume your previous activity Non-emergency contact: Primary Care Provider Call non-emergency contact if: you have any medication questions and your temperature is above 101 Follow-up/Referrals: Sunny Philip MD [Primary Care Provider] - (YOUR APPOINTMENT IS WITH SUNNY PHILIP AT 2:05 ON FEBRUARY 01, 2020. PLEASE ARRIVE 15 MINUTES PRIOR TO YOUR APPOINTMENT IF YOU NEEDED RESCHDULE YOUR APPOINTMENT PLEASE ALL [phone]) Diet: Heart Healthy Addtl Attending Provider Instructions: Follow up with your primary care provider Dr. Philip within 1 week Continue physical and occupational therapy Fall precaution Complete the course of the antibiotic Pending Studies at Discharge: No Stand-Alone Forms: My [employer], Smoking Cessation Medications and DC Order Prescriptions: New cephalexin 500 mg Capsule 500 mg PO BID 5 Days Qty: 10 RF: 0 Continued albuterol sulfate 2.5 mg /3 mL (0.083 %) solution for nebulization 2.5 mg inhalation BID RF: 0 polyethylene glycol 3350 [Miralax] 17 gram Powder In Packet 17 g PO DAILY PRN (Reason: Constipation) RF: 0 sucralfate [Carafate] 100 mg/mL Suspension 10 ml PO ACHS PRN (Reason: Acid Reflux) RF: 0 ondansetron HCl 4 mg tablet 4 mg PO Q6 PRN (Reason: Nausea) RF: 0 allopurinol 100 mg Tablet 100 mg PO DAILY RF: 0 tramadol [Ultram] 50 mg tablet 50 mg PO Q6 PRN (Reason: Pain) RF: 0 benzonatate [Tessalon Perles] 100 mg Capsule 100 mg PO TID PRN (Reason: Cough) RF: 0 hydralazine 100 mg tablet 100 mg PO BID RF: 0 pantoprazole [Protonix] 40 mg tablet,delayed release (DR/EC) 40 mg PO BID PRN (Reason: Acid Reflux) RF: 0 lisinopril 10 mg Tablet 10 mg PO DAILY RF: 0 triamcinolone acetonide [Nasacort] 55 mcg aerosol,spray 2 spray INTRANASAL BID RF: 0 gabapentin [Neurontin] 100 mg capsule 100 mg PO HS RF: 0 albuterol sulfate [ProAir HFA] 90 mcg/actuation HFA aerosol inhaler 2 puff INHALATION Q4 PRN (Reason: Shortness Of Breath Or Wheezing) RF: 0 atenolol [Tenormin] 50 mg tablet 50 mg PO BID RF: 0 duloxetine 30 mg capsule,delayed release(DR/EC) 30 mg PO DAILY RF: 0 Advair HFA 115-21 mcg/actuation HFA aerosol inhaler 2 puff INHALATION BID RF: 0 diclofenac sodium [Voltaren] 1 % Gel 4 g TOPICAL QID PRN (Reason: Pain) RF: 0 I-Caps 280-10-2 mg Capsule 1 cap PO DAILY RF: 0 Discharge Orders: Discharge Order (Routine); Ordered 01/26/20 Ordered By: Florian Painting Admission Data Admit Date/Time: 01/24/20 11:53 Attending Provider: Florian Painting Admit Provider: Charmaine Maher Primary Care Provider: Sunny Philip Other Providers: Charmaine Maher Other Interventions: Discharge Summary Assessment (RN) Last Done: 01/26/20 15:58 DC Date/Time DO NOT enter until pt leaves facility: 01/26/20 16:50
== END 2020-01-26 16:50 | disposition home health service (06) | DRG 689 ==
LOC: ED 09:55 → 2N 11:53 → SUATTDRO 11:53 → 2N 12:30 → 4W 01-25 00:20

== ENCOUNTER 2020-02-26 10:18 | Inpatient (IN) ==
[2020-02-26] MEDS ORDERED: MoRPHine SULFATE 4 MG/ML 1 ML CARP\\VIAL IV STA (10:35)
[2020-02-26] MEDS ORDERED: SODIUM CHLORIDE 0.9% 1000ML 1,000 ML IV SCH (10:45)
--- NOTE | 2020-02-26 10:51 | Emergency Department Note ---
Impression & Plan Closed trochanteric fracture of femur, Aracely-prosthetic fracture around prosthetic hip, Fall, Acute hip pain ED Provider Note NAME: JAZLYN RODRÍGUEZ AGE: 89 SEX: M : 1930 ARRIVES VIA: Ambulance INFORMANT: Patient, ED PROVIDER(S): Pierre Peraza MD Chief Complaint: Fall HPI: Patient did present with a fall reported last night. The patient did have a fall to the right side. The patient does complain of hip pain. Patient describes the severity as 10 out of 10. Sharp and achy in nature. Patient denies any LOC. Patient does not take any known blood thinning medications. The patient denies any chest pain or shortness of breath. No nausea or vomiting. The patient did not take any pain medication prior to arrival. ROS: See HPI for pertinent positives and negatives. A total of 10 systems were review ed and otherwise negative. Past medical history: See below Surgical history: See below Social history: See below Physical Exam: GENERAL: Well appearing, well nourished, NAD, non-toxic. Head: No obvious deformity laceration or TTP. EYE EXAM: Normal conjunctiva. PERRL, no anisocoria and EOM's grossly intact w/o pain. OROPHARYNX: Dry mucus membranes. Grossly normal dentition. NECK: Supple, no nuchal rigidity, no adenopathy, non-tender. No signs of meningismus. No midline C-spine TTP. Chest: No chest wall. Crepitus or bruising. LUNGS: Coarse sounds bilaterally. Normal chest wall mechanics. HEART: NSR, no MRG. ABDOMEN: Abdomen soft, non-tender, normo-active bowel sounds, no masses, no brielle ound or guarding. BACK: No CVA TTP. No midline lumbar or thoracic pain. SKIN: No rashes and no bruising. UPPER EXTREMITIES: Upper extremities are grossly normal with exception of bruising over the lateral aspect of the distal right forearm. LOWER EXTREMITIES: Grossly normal, no edema. Mild pain to the right hip, limited range of motion with elevation of the right hip. No leg length discrepancy, compartment soft neurovascular intact distally in bilateral extremities. NEURO EXAM: A&O x3, cranial nerves II-XII grossly intact, normal speech, moves all 4 extremities on command w/o issue. Differential diagnoses: Fracture, dislocation, contusion, intra-abdominal, pneumothorax, intrathoracic, intracranial, neurologic, compartment syndrome, rhabdomyolysis, as well as other pathologies. Course: Patient was seen and evaluated the bedside. A full history and physical exam was performed. I did speak with the hospitalist service GEETA Amaro on behalf of Dr. Manzo. They will further evaluate treat the patient. I did update the family they are agreeable to plan of care and that the patient would be admitted. I did speak with Dr. Orellana of [facility]. Patient was to be made n.p.o. at midnight. EKG: Indication: Fall Sinus bradycardia, rate 56, normal intervals, left axis deviation, T wave inversion in lead III, no ST changes. No change from January 24, 2020. Imaging Studies: Radiology results as stated below per my review in the radiologist's interpre tation: CT OF THE CERVICAL SPINE CLINICAL HISTORY: Neck pain status post trauma COMPARISON STUDY: No previous studies for comparison. CT DOSE: 487.91 mGycm TECHNIQUE: CT scan of the cervical spine was performed from the skull base to the thoracic inlet. Images are reviewed in the axial, sagittal, and coronal planes. IV contrast was not administered for this examination. A dose lowering technique was utilized adhering to the principles of ALARA. FINDINGS: The visualized portions of the lung apices reveal no evidence of pneumothorax. The prevertebral soft tissues are normal. No fractures or subluxations are visualized. There are multilevel degenerative changes. There is a slight reversal the normal cervical lordosis. IMPRESSION: No evidence of acute fracture or traumatic subluxation. ACT 112: Negative or not required by law. Electronically signed by: Dante Schroeder M.D. 02/26/2020 11:41 AM Dictated: 02/26/20 1137 Transcribed: 02/26/20 1141 XR chest 1V portable CLINICAL HISTORY: Trauma. Pain. COMPARISON STUDY: 01/24/2020 FINDINGS: The cardiac and mediastinal contours remain stable. There is persistent elevation of the right hemidiaphragm. There is no failure. There is no focal pulmonary consolidation. There are no pleural effusions. No pneumothorax is visualized, on this AP supine projection.[ IMPRESSION: No active disease in the chest. ACT 112: Negative or not required by law. Electronically signed by: Dante Schroeder M.D. 02/26/2020 12:07 PM Dictated: 02/26/20 1205 Transcribed: 02/26/[address] OF THE HEAD WITHOUT CONTRAST CLINICAL HISTORY: s/p fall COMPARISON STUDY: Head CT January 24, 2020. CT DOSE: 729.78 mGycm TECHNIQUE: Helical axial images of the head were obtained without IV contrast. Automated exposure control was utilized for the study. A dose lowering technique was utilized adhering to the principles of ALARA. FINDINGS: No acute intracranial hemorrhage, midline shift or mass effect is present. The ventricular system is stable. Basilar cisterns are patent. There are no extra-axial collections. White matter hypodensities are unchanged and suggest small vessel disease. There are no findings to suggest acute dural sinus thrombosis or acute territorial infarct. The appearance of the brain is unchanged. There is no calvarial fracture. IMPRESSION: 1. No acute intracranial findings. No change in appearance of the brain. 2. No calvarial fracture. ACT 112: Negative or not required by law. Electronically signed by: Jason Marcus M.D. 02/26/2020 11:40 AM Dictated: 02/26/205 Transcribed: 02/26/201134 XR hip RT 2V w pelvis CLINICAL HISTORY: s/p fall, hip pain COMPARISON: CT of the abdomen and pelvis January 10, 2020. FINDINGS: Lumbosacral fusion hardware is partially imaged. Sacroiliac joints and symphysis pubis are intact. Bilateral total hip arthroplasties are noted. No acute fracture is identified within the pelvis or proximal left femur. Note is made of an acute minimally displaced fracture through the greater trochanter of the right femur. Nondisplaced component may extend to the lesser trochanter. IMPRESSION: 1. Acute minimally displaced fracture of the greater trochanter of the right femur with possible nondisplaced component extending into the lesser trochanter. 2. Status post total bilateral hip arthroplasties. 3. No acute fracture within the pelvis or proximal left femur. ACT 112: Negative or not required by law. Electronically signed by: Jason Marcus M.D. 02/26/2020 12:10 PM Dictated: 02/26/20 1205 Transcribed: 02/26/20 120 XR forearm RT 2V CLINICAL HISTORY: Right forearm pain status post trauma COMPARISON: None. DISCUSSION: No fractures or dislocations are visualized. There is a tiny olecranon spur. The examination is somewhat limited from a positioning standpoint. The provided AP view is somewhat oblique. IMPRESSION: No acute fractures or dislocations identified. ACT 112: Negative or not required by law. Electronically signed by: Dante Schroeder M.D. 02/26/2020 12:09 PM Dictated: 02/26/201207 Transcribed: 02/26/201207 Cardiac monitoring: An order was placed for continuous cardiac monitoring. The monitor shows a rate of 65 with sinus rhythm. MDM: Patient was seen and evaluated the bedside. The patient does present from [place]. The patient had a fall last night. The patient fell to his right side. The patient does complain of right hip pain. 10 out of 10 in severity. Patient has not taken any pain medication prior. Patient denies any LOC. The patient does have pain over the right hip. The patient does not have any other focal trauma in terms of pain with the exception of some bruising to the right distal forearm. Patient does not have any obvious deformity of the right forearm. Leg length appears symmetrical bilaterally. Patient did a bladder completed along with a CT of the head and cervical spine chest x-ray given that he had coarse breath sounds even though the patient does not complain of any shortness of breath. The patient also did have right forearm and right hip and pelvis films completed. Patient CTs are negative. The patient was ordered additional pain medication as the patient does have a periprosthetic trochanteric hip fracture. I did speak with the on-call orthopedist as well as the hospital service. The patient was admitted to the medicine service. Patient was requiring 2 L nasal cannula which I believe was due to his coarse breath sounds. But no sick contacts. I did discuss this with the on-call hospitalist. Currently on antibiotics will be deferred to the inpatient team as well as any additional testing or blood cultures. They are agreeable to this plan of care. Family was updated. Patient was admitted to the medicine service. Past Med/Surg History Medical History Carotid artery stenosis (Chronic) Carpal tunnel syndrome on both sides (Chronic) CKD (chronic kidney disease), stage III Gout (Chronic) HLD (hyperlipidemia) (Chronic) HTN (hypertension) (Chronic) Macular degeneration, bilateral (Chronic) Prostate cancer (Resolved) "s/p prostatectomy" Renal artery stenosis (Chronic) "with B/L stent placement" Urinary retention (Acute) Surgical History History of back surgery (Resolved) S/P appendectomy (Resolved) S/P carotid endarterectomy (Resolved) "right" S/P cataract surgery (Resolved) "B/L" S/P cholecystectomy (Resolved) S/P partial gastrectomy (Resolved) "due to ulcers" S/P rotator cuff repair (Resolved) "left" S/P total hip arthroplasty (Resolved) "B/L, with revision on right" Social History Preferred Language: Lao Communication Ability: Effective Employment Coach Required: No Beliefs That Will Affect Care: None Current Living Situation: Spouse Feels Safe at Home: Yes Smoking Status: Former smoker Second Hand Exposure: No ; Hx Alcohol Use: No Allergies Allergies Allergy/AdvReac Type Severity Reaction Status Date / Time Iodinated Contrast Media Allergy Severe ANAPHALXIS Verified 02/26/20 12:53 nitrofurantoin Allergy Severe "throat Verified 02/26/20 12:53 swelled shut" clopidogrel Allergy Intermediate "flu s/s" Verified 02/26/20 12:53 Home Meds Home Medications Medication Instructions Recorded Confirmed Advair HFA 2 puff INHALATION BID 01/10/20 02/26/20 I-Caps 1 cap PO DAILY 01/10/20 02/26/20 albuterol sulfate 2.5 mg INHALATION BID 01/10/20 02/26/20 albuterol sulfate [ProAir HFA] 2 puff INHALATION Q4 PRN 01/10/20 02/26/20 allopurinol 100 mg PO QPM 01/10/20 02/26/20 atenolol [Tenormin] 50 mg PO BID 01/10/20 02/26/20 benzonatate [Tessalon Perles] 100 mg PO TID PRN 01/10/20 02/26/20 diclofenac sodium [Voltaren] 4 g TOPICAL QID PRN 01/10/20 02/26/20 duloxetine 30 mg PO QAM 01/10/20 02/26/20 gabapentin [Neurontin] 100 mg PO HS 01/10/20 02/26/20 hydralazine 100 mg PO BID 01/10/20 02/26/20 lisinopril 10 mg PO QAM 01/10/20 02/26/20 ondansetron HCl 4 mg PO Q6 PRN 01/10/20 02/26/20 pantoprazole [Protonix] 40 mg PO BID PRN 01/10/20 02/26/20 polyethylene glycol 3350 [Miralax] 17 g PO DAILY PRN 01/10/20 02/26/20 sucralfate [Carafate] 10 ml PO ACHS PRN 01/10/20 02/26/20 tramadol [Ultram] 50 mg PO Q6 PRN 01/10/20 02/26/20 triamcinolone acetonide [Nasacort] 2 spray INTRANASAL BID 01/10/20 02/26/20 acetaminophen 1,000 mg PO Q6H PRN 02/26/20 02/26/20 aspirin 81 mg PO DAILY 02/26/20 02/26/20 Results & Data (ED) Vital Signs Vital Signs - 24 hr 02/26/20 10:08 02/26/20 11:21 02/26/20 12:11 Temperature 36.9 C Temperature Source Oral Pulse Rate 65 58 L 60 Pulse Rate from SpO2 Sensor 59 L 60 Respiratory Rate 16 15 20 Respiratory Effort / Characteristics Non-Labored Respiratory Depth Normal Blood Pressure 184/96 H 190/80 H 199/87 H Blood Pressure Mean 125 103 108 Pulse Oximetry 94 99 98 Oxygen Delivery Method Room Air Nasal Cannula Nasal Cannula Oxygen Flow Rate 2 2 Sepsis Recent Fever Within 48 Hours No Sepsis Action Taken by Nursing No Action Required 02/26/20 12:32 02/26/20 13:01 02/26/20 13:30 Temperature Temperature Source Pulse Rate 58 L 58 L 60 Pulse Rate from SpO2 Sensor 59 L 58 L 59 L Respiratory Rate 16 15 18 Respiratory Effort / Characteristics Respiratory Depth Blood Pressure 201/84 H 180/78 H 195/76 H Blood Pressure Mean 136 100 102 Pulse Oximetry 96 95 92 Oxygen Delivery Method Nasal Cannula Nasal Cannula Nasal Cannula Oxygen Flow Rate 2 2 2 Sepsis Recent Fever Within 48 Hours Sepsis Action Taken by [facility] Medications Current Medication List: was personally reviewed by me Laboratory Data Attestation: I reviewed the patient's lab results. Result diagrams: 02/26/20 10:44 02/26/20 10:44 Lab Results 02/26/20 02/26/20 02/26/20 Range/Units 10:44 10:44 10:44 WBC 9.09 (4.8-10.8) K/uL RBC 4.53 L (4.7-6.1) M/uL Hgb 13.8 L (14.0-18.0) g/dL Hct 41.4 L (42-52) % MCV 91.4 (80-100) fL MCH 30.5 (25-34) pg MCHC 33.3 (32-36) g/dL RDW Std Deviation 46.9 H (36.4-46.3) fL RDW Coeff of Van 14.0 (11.5-14.5) % Plt Count 175 (130-400) K/uL MPV 11.2 H (7.4-10.4) fL Immature Gran % (Auto) 0.4 % Neut % (Auto) 62.8 % Lymph % (Auto) 14.5 % [place] % (Auto) 13.1 % Eos % (Auto) 8.8 % Baso % (Auto) 0.4 % Immature Gran # (Auto) 0.04 H (0.00-0.02) K/uL Neut # (Auto) 5.70 (1.4-6.5) K/uL Lymph # (Auto) 1.32 (1.2-3.4) K/uL [place] # (Auto) 1.19 H (0.11-0.59) K/uL Eos # (Auto) 0.80 H (0-0.5) K/uL Baso # (Auto) 0.04 (0-0.2) K/uL PT 11.2 (9.0-12.0) Seconds INR 1.1 (0.9-1.1) APTT 32.7 H (21.0-31.0) Seconds PTT Ratio 1.2 Sodium 137 (136-145) mmol/L Potassium 4.6 (3.5-5.1) mmol/L Chloride 109 H (98-107) mmol/L Carbon Dioxide 24 (21-32) mmol/L Anion Gap 4.0 (3-11) BUN 28 H (7-18) mg/dl Creatinine 1.69 H (0.6-1.4) mg/dl Est Cr Clr Drug Dosing 35.2 ml/min Est GFR ( Amer) 41.1 Est GFR (Non-Af Amer) 35.5 BUN/Creatinine Ratio 16.7 (10-20) Glucose 97 (70-99) mg/dl Calcium 8.9 (8.5-10.1) mg/dl Administered Medications Discontinued Medications Sodium Chloride (Nss 1000ml) 1,000 mls @ 999 mls/hr IV .Q1H1M SILVANO Stop: 02/26/20 11:45 Last Infusion: 02/26/20 12:20 Dose: 0 mls/hr Documented by: [id number] Admin: 02/26/20 11:00 Dose: 999 mls/hr Documented by: [id number] Sodium Chloride (Nss 1000ml) 500 mls @ 999 mls/hr IV .Q31M ONE Stop: 02/26/20 12:03 Last Infusion: 02/26/20 13:00 Dose: 0 mls/hr Documented by: [id number] Admin: 02/26/20 12:21 Dose: 999 mls/hr Documented by: [id number] Morphine Sulfate (Morphine Sulfate) 2 mg IV NOW STA Stop: 02/26/20 10:36 Last Admin: 02/26/20 12:21 Dose: Not Given Documented by: [id number] Morphine Sulfate (Morphine Sulfate) Confirm Administered Dose 2 mg .ROUTE .STK- MED ONE Stop: 02/26/20 12:15 Last Admin: 02/26/20 12:21 Dose: 2 mg Documented by: [id number] Blood Pressure Blood Pressure Findings: Elevated blood pressure Blood Pressure Disposition: Referred to patients primary care provider Discharge Plan Visit Data Chief Complaint: Fall ED Provider: Pierre Peraza Discharge Problem: Closed trochanteric fracture of femur, Aracely-prosthetic fracture around prosthetic hip, Fall, Acute hip pain Discharge Instructions Interventions: ED Discharge Assessment Last Done: 02/26/20 13:45 Forms Stand Alone Forms: AfterYes Prescriptions Prescriptions: No Action albuterol sulfate 2.5 mg /3 mL (0.083 %) solution for nebulization 2.5 mg inhalation BID RF: 0 polyethylene glycol 3350 [Miralax] 17 gram Powder In Packet 17 g PO DAILY PRN (Reason: Constipation) RF: 0 sucralfate [Carafate] 100 mg/mL Suspension 10 ml PO ACHS PRN (Reason: Acid Reflux) RF: 0 ondansetron HCl 4 mg tablet 4 mg PO Q6 PRN (Reason: Nausea) RF: 0 allopurinol 100 mg Tablet 100 mg PO QPM RF: 0 tramadol [Ultram] 50 mg tablet 50 mg PO Q6 PRN (Reason: Pain) RF: 0 benzonatate [Tessalon Perles] 100 mg Capsule 100 mg PO TID PRN (Reason: Cough) RF: 0 hydralazine 100 mg tablet 100 mg PO BID RF: 0 pantoprazole [Protonix] 40 mg tablet,delayed release (DR/EC) 40 mg PO BID PRN (Reason: Acid Reflux) RF: 0 lisinopril 10 mg Tablet 10 mg PO QAM RF: 0 triamcinolone acetonide [Nasacort] 55 mcg aerosol,spray 2 spray INTRANASAL BID RF: 0 gabapentin [Neurontin] 100 mg capsule 100 mg PO HS RF: 0 albuterol sulfate [ProAir HFA] 90 mcg/actuation HFA aerosol inhaler 2 puff INHALATION Q4 PRN (Reason: Shortness Of Breath Or Wheezing) RF: 0 atenolol [Tenormin] 50 mg tablet 50 mg PO BID RF: 0 duloxetine 30 mg capsule,delayed release(DR/EC) 30 mg PO QAM RF: 0 Advair HFA 115-21 mcg/actuation HFA aerosol inhaler 2 puff INHALATION BID RF: 0 diclofenac sodium [Voltaren] 1 % Gel 4 g TOPICAL QID PRN (Reason: Pain) RF: 0 I-Caps 280-10-2 mg Capsule 1 cap PO DAILY RF: 0 acetaminophen 500 mg Tablet 1,000 mg PO Q6H PRN (Reason: Pain) RF: 0 aspirin 81 mg Tablet,Delayed Release (Dr/Ec) 81 mg PO DAILY RF: 0 Discharge Problem: Closed trochanteric fracture of femur Qualifiers: Encounter type: initial encounter Laterality: right Qualified Code(s): S72.101A - Unspecified trochanteric fracture of right femur, initial encounter for closed fracture Aracely-prosthetic fracture around prosthetic hip Qualifiers: Encounter type: initial encounter Qualified Code(s): M97.8XXA - Periprosthetic fracture around other internal prosthetic joint, initial encounter Fall Qualifiers: Encounter type: initial encounter Qualified Code(s): W19.XXXA - Unspecified fall, initial encounter Acute hip pain Qualifiers: Laterality: right Qualified Code(s): M25.551 - Pain in right hip
[2020-02-26 11:01] LABS: Basophils # (auto) 0.04 K/uL (0-0.2); Basophils % (auto) 0.4 %; Eosinophils % (auto) 8.8 %; Hematocrit (blood only) 41.4 % (42-52); Hemoglobin 13.8 g/dL (14.0-18.0); Immature Granulocytes # (auto) 0.04 K/uL (0.00-0.02); Immature Granulocytes % (auto) 0.4 %; Lymphocytes # (auto) 1.32 K/uL (1.2-3.4); Lymphocytes % (auto) 14.5 %; Mean Corpuscular Hemoglobin 30.5 pg (25-34); Mean Corpuscular Hgb Conc 33.3 g/dL (32-36); Mean Corpuscular Volume 91.4 fL (80-100); Mean Platelet Volume 11.2 fL (7.4-10.4); Monocytes # (auto) 1.19 K/uL (0.11-0.59); Monocytes % (auto) 13.1 %; Neutrophils % (auto) 62.8 %; Platelet Count 175 K/uL (130-400); RDW Standard Deviation 46.9 fL (36.4-46.3); Red Blood Count 4.53 M/uL (4.7-6.1); White Blood Count 9.09 K/uL (4.8-10.8)
[2020-02-26 11:10] LABS: INR 1.1 (0.9-1.1); Partial Thromboplastin Ratio 1.2; Partial Thromboplastin Time 32.7 Seconds (21.0-31.0); Prothrombin Time 11.2 Seconds (9.0-12.0)
[2020-02-26 11:19] LABS: BUN Creatinine Ratio 16.7 (10-20); Calcium 8.9 mg/dl (8.5-10.1); Creatinine Clr Calc Pharmacy 35.2 ml/min; Est GFR (African American) 41.1; Est GFR (Non-African American) 35.5; Potassium 4.6 mmol/L (3.5-5.1)
--- NOTE | 2020-02-26 11:24 | Electrocardiogram Report ---
Test Reason : Blood Pressure : / mmHG Vent. Rate : 056 BPM Atrial Rate : 056 BPM P-R Int : 154 ms QRS Dur : 082 ms QT Int : 434 ms P-R-T Axes : 040 -20 -12 degrees QTc Int : 418 ms Poor data quality, interpretation may be adversely affected Sinus bradycardia Inferior infarct , age undetermined Poor R wave progression, consider anterior IN vs. lead placement vs. LVH Abnormal ECG When compared with ECG of 24-JAN-2020 10:09, No significant change was found Confirmed by Arsalan Ceballos ([id number]) on 02/26/2020 11:23:43 AM Referred By: REFERRED SELF Confirmed By:Arsalan Ceballos
[2020-02-26] MEDS ORDERED: SODIUM CHLORIDE 0.9% 1000ML 500 ML IV ONE (11:33)
--- NOTE | 2020-02-26 11:41 | CT Scan Report ---
CT OF THE HEAD WITHOUT CONTRAST CLINICAL HISTORY: s/p fall COMPARISON STUDY: Head CT January 24, 2020. CT DOSE: 729.78 mGycm TECHNIQUE: Helical axial images of the head were obtained without IV contrast. Automated exposure con trol was utilized for the study. A dose lowering technique was utilized adhering to the principles o f ALARA. FINDINGS: No acute intracranial hemorrhage, midline shift or mass effect is present. The ventricular system is stable. Basilar cisterns are patent. There are no extra-axial collections. White matter hyp odensities are unchanged and suggest small vessel disease. There are no findings to suggest acute dur al sinus thrombosis or acute territorial infarct. The appearance of the brain is unchanged. There is no calvarial fracture. IMPRESSION: 1. No acute intracranial findings. No change in appearance of the brain. 2. No calvarial fracture. ACT 112: Negative or not required by law. Electronically signed by: Jason Marcus M.D. 02/26/2020 11:40 AM
--- NOTE | 2020-02-26 11:42 | CT Scan Report ---
CT OF THE CERVICAL SPINE CLINICAL HISTORY: Neck pain status post trauma COMPARISON STUDY: No previous studies for comparison. CT DOSE: 487.91 mGycm TECHNIQUE: CT scan of the cervical spine was performed from the skull base to the thoracic inlet. Chioma ges are reviewed in the axial, sagittal, and coronal planes. IV contrast was not administered for thi s examination. A dose lowering technique was utilized adhering to the principles of ALARA. FINDINGS: The visualized portions of the lung apices reveal no evidence of pneumothorax. The prevertebral soft tissues are normal. No fractures or subluxations are visualized. There are multilevel degenerative changes. There is a slight reversal the normal cervical lordosis. IMPRESSION: No evidence of acute fracture or traumatic subluxation. ACT 112: Negative or not required by law. Electronically signed by: Dante Schroeder M.D. 02/26/2020 11:41 AM
--- NOTE | 2020-02-26 12:09 | XRay Report ---
XR chest 1V portable CLINICAL HISTORY: Trauma. Pain. COMPARISON STUDY: 01/24/2020 FINDINGS: The cardiac and mediastinal contours remain stable. There is persistent elevation of the ri ght hemidiaphragm. There is no failure. There is no focal pulmonary consolidation. There are no pleur al effusions. No pneumothorax is visualized, on this AP supine projection.[ IMPRESSION: No active disease in the chest. ACT 112: Negative or not required by law. Electronically signed by: Dante Schroeder M.D. 02/26/2020 12:07 PM
--- NOTE | 2020-02-26 12:10 | XRay Report ---
XR forearm RT 2V CLINICAL HISTORY: Right forearm pain status post trauma COMPARISON: None. DISCUSSION: No fractures or dislocations are visualized. There is a tiny olecranon spur. The examinat ion is somewhat limited from a positioning standpoint. The provided AP view is somewhat oblique. IMPRESSION: No acute fractures or dislocations identified. ACT 112: Negative or not required by law. Electronically signed by: Dante Schroeder M.D. 02/26/2020 12:09 PM
--- NOTE | 2020-02-26 12:11 | XRay Report ---
XR hip RT 2V w pelvis CLINICAL HISTORY: s/p fall, hip pain COMPARISON: CT of the abdomen and pelvis January 10, 2020. FINDINGS: Lumbosacral fusion hardware is partially imaged. Sacroiliac joints and symphysis pubis are intact. Bilateral total hip arthroplasties are noted. No acute fracture is identified within the pel vis or proximal left femur. Note is made of an acute minimally displaced fracture through the greater trochanter of the right femur. Nondisplaced component may extend to the lesser trochanter. IMPRESSION: 1. Acute minimally displaced fracture of the greater trochanter of the right femur with possible nond isplaced component extending into the lesser trochanter. 2. Status post total bilateral hip arthroplasties. 3. No acute fracture within the pelvis or proximal left femur. ACT 112: Negative or not required by law. Electronically signed by: Jason Marcus M.D. 02/26/2020 12:10 PM
[2020-02-26] MEDS ORDERED: MoRPHine SULFATE 2 MG/ML CARP ONE (12:14)
[2020-02-26] MEDS ORDERED: MoRPHine SULFATE 4 MG/ML 1 ML CARP\\VIAL IV PRN (12:20)
[2020-02-26] MEDS ORDERED: HydrALAZINE HCL 20 MG/ML VIAL ONE (14:52)
[2020-02-26] MEDS ORDERED: MAGNESIUM HYDROXIDE SUSP 30 ML UDC PO PRN (15:00)
[2020-02-26] MEDS ORDERED: NALOXONE HCL 0.4 MG/1 ML VIAL/CARP IV PRN (15:00)
[2020-02-26] MEDS ORDERED: bisacodyL 10 MG SUPP PR PRN (15:00)
[2020-02-26] MEDS ORDERED: MoRPHine SULFATE 2 MG/ML CARP IV PRN (15:00)
[2020-02-26] MEDS: ACETAMINOPHEN 325 MG TAB PO SCH ×2 (15:35→20:53)
--- NOTE | 2020-02-26 16:12 | History & Physical Report ---
Date of Service February 26, 2020 Assessment & Plan (1) Closed trochanteric fracture of femur: -admit to med/surg -patient presenting from home after having a mechanical fall yesterday morning -in the ED, patient found to have acute minimally displaced fracture of the greater trochanter of the right femur with possible nondisplaced component extending into the lesser trochanter -pain control with scheduled Tylenol and PRN Tramadol and Morphine -ortho consult, case discussed with Edy Chandler PA-C; plan for non operative management at this time; toe touch weight bearing and abduction precautions -PT/OT evals; likely will need short term rehab placement (2) HTN (hypertension): -BP elevated, ? due to pain -continue home meds atenolol, hydralazine, and lisinopril -PRN IV Hydralazine (3) CKD (chronic kidney disease), stage III: - baseline creat runs in the mid 1's - creat noted to be 1.6 today - continue to monitor, avoid nephrotoxic agents when able (4) Gout: -continue allopurinol (5) Mild persistent asthma: -no signs of acute exacerbation -continue home inhalers (6) Anxiety: -continue duloxetine (7) GERD (gastroesophageal reflux disease): -continue PPI (8) DVT prophylaxis: -SQ Heparin Admission and Anticipated Discharge Date Admission Date: February 26, 2020 History of Present Illness Chief Complaint: Right Hip Pain Primary Care Provider: Ninfa Philip MD 89 year old male who presents to the ED with reports of right hip pain. Patient reports that yesterday morning he was in the kitchen trying to get something to drink when his right leg gave out from under him and he fell to the ground. Patient reports ongoing right hip pain and ambulatory dysfunction for the past several years. Patient's pain was much worsened after his fall and then presented to the ED for evaluation. Patient reports he otherwise has been feeling well recently. Denies any loss of consciousness or striking his head with the fall. No chest pain or shortness of breath. Has a chronic cough which is unchanged from baseline. No abdominal pain, nausea, vomiting, or diarrhea. Denies fever and chills. No urinary symptoms. In the ED, patient is found to hav e acute minimally displaced fracture of the greater trochanter of the right femur. Labs are unremarkable / at baseline. BP is elevated, vitals otherwise stable. Patient was given IVF and IV morphine. Allergies Allergy/AdvReac Type Severity Reaction Status Date / Time Iodinated Contrast Media Allergy Severe ANAPHALXIS Verified 02/26/20 12:53 nitrofurantoin Allergy Severe "throat Verified 02/26/20 12:53 swelled shut" clopidogrel Allergy Intermediate "flu s/s" Verified 02/26/20 12:53 Home Medications Home Medications Medication Instructions Recorded Confirmed Type Advair HFA 2 puff INHALATION BID 01/10/20 02/26/20 History I-Caps 1 cap PO DAILY 01/10/20 02/26/20 History albuterol sulfate 2.5 mg INHALATION BID 01/10/20 02/26/20 History albuterol sulfate [ProAir HFA] 2 puff INHALATION Q4 PRN 01/10/20 02/26/20 History allopurinol 100 mg PO QPM 01/10/20 02/26/20 History atenolol [Tenormin] 50 mg PO BID 01/10/20 02/26/20 History benzonatate [Tessalon Perles] 100 mg PO TID PRN 01/10/20 02/26/20 History diclofenac sodium [Voltaren] 4 g TOPICAL QID PRN 01/10/20 02/26/20 History duloxetine 30 mg PO QAM 01/10/20 02/26/20 History gabapentin [Neurontin] 100 mg PO HS 01/10/20 02/26/20 History hydralazine 100 mg PO BID 01/10/20 02/26/20 History lisinopril 10 mg PO QAM 01/10/20 02/26/20 History ondansetron HCl 4 mg PO Q6 PRN 01/10/20 02/26/20 History pantoprazole [Protonix] 40 mg PO BID 01/10/20 02/26/20 History polyethylene glycol 3350 [Miralax] 17 g PO DAILY PRN 01/10/20 02/26/20 History sucralfate [Carafate] 10 ml PO ACHS PRN 01/10/20 02/26/20 History tramadol [Ultram] 50 mg PO Q6 PRN 01/10/20 02/26/20 History triamcinolone acetonide [Nasacort] 2 spray INTRANASAL BID 01/10/20 02/26/20 History acetaminophen 1,000 mg PO Q6H PRN 02/26/20 02/26/20 History aspirin 81 mg PO DAILY 02/26/20 02/26/20 History Past Med/Surg History Medical History (Updated 02/26/20 @ 17:22 by Roland Orellana M.D.) Anxiety Carotid artery stenosis (Chronic) Carpal tunnel syndrome on both sides (Chronic) CKD (chronic kidney disease), stage III GERD (gastroesophageal reflux disease) Gout (Chronic) HLD (hyperlipidemia) (Chronic) HTN (hypertension) (Chronic) Macular degeneration, bilateral (Chronic) Mild persistent asthma Prostate cancer (Resolved) "s/p prostatectomy" Renal artery stenosis (Chronic) "with B/L stent placement" Urinary retention (Acute) Surgical History History of back surgery (Resolved) S/P appendectomy (Resolved) S/P carotid endarterectomy (Resolved) "right" S/P cataract surgery (Resolved) "B/L" S/P cholecystectomy (Resolved) S/P partial gastrectomy (Resolved) "due to ulcers" S/P rotator cuff repair (Resolved) "left" S/P total hip arthroplasty (Resolved) "B/L, with revision on right" Social History Preferred Language: Uzbek Communication Ability: Effective Healthcare Analyst Required: No Beliefs That Will Affect Care: None Current Living Situation: Spouse Other Information That Helps Us Care for You: No Feels Safe at Home: Yes Safety Concerns: Feels Safe At This Time Smoking Status: Former smoker Tobacco Type: cigarettes ; Do You Dip or Chew Tobacco: No ; Second Hand Exposure: No ; Tobacco Cessation Education Requested by Patient: No Hx Alcohol Use: No Hx Substance Use: No Review of Systems Review of Systems: ROS per HPI, all other systems reviewed and negative Physical Exam Constitutional: WD/WN, vitals as above Eyes: PERRL, conjunctivae normal, anicteric sclerae ENMT: external ear and nose normal, oropharynx normal Respiratory: normal respiratory effort; no respiratory distress some occasional, coarse breath sounds Cardiovascular: Rate/Rhythm: regular rate and regular rhythm Vessels: normal peripheral pulses Extremities: no edema Gastrointestinal (Abdomen): normal bowel sounds, soft, nontender, no hepatosplenomegaly Musculoskeletal: no cyanosis or clubbing, extremities motor strength 5/5 right hip pain with minimal movement of the RLE. CSM checks intact to RLE. Skin: no rashes, warm and dry Neurologic: PERRL, EOMI, accommodation nl, no face palsy, no dysarthria Psychiatric: A+Ox3, euthymic affect Results & Data Results & Data ([facility]) Vital Signs (Past 12 Hours) Vital Signs Temp Pulse Resp BP BP Pulse Ox 02/26/20 14:48 36.7 C 18 219/93 H 98 02/26/20 14:46 78 02/26/20 13:30 60 18 195/76 H 92 02/26/20 13:01 58 L 15 180/78 H 95 02/26/20 12:32 58 L 16 201/84 H 96 02/26/20 12:11 60 20 199/87 H 98 02/26/20 11:21 58 L 15 190/80 H 99 02/26/20 10:08 36.9 C 65 16 184/96 H 94 Laboratory Results Short CBC 02/26/20 Range/Units 10:44 WBC 9.09 (4.8-10.8) K/uL Hgb 13.8 L (14.0-18.0) g/dL Hct 41.4 L (42-52) % Plt Count 175 (130-400) K/uL BMP 02/26/20 10:44 Sodium 137 Potassium 4.6 Chloride 109 H Carbon Dioxide 24 BUN 28 H Creatinine 1.69 H Glucose 97 Calcium 8.9 Diagnostic Findings RIGHT FOREARM XR IMPRESSION: No acute fractures or dislocations identified. XR RIGHT HIP/PELVIS XR IMPRESSION: 1. Acute minimally displaced fracture of the greater trochanter of the right femur with possible nondisplaced component extending into the lesser trochanter. 2. Status post total bilateral hip arthroplasties. 3. No acute fracture within the pelvis or proximal left femur. HEAD CT IMPRESSION: 1. No acute intracranial findings. No change in appearance of the brain. 2. No calvarial fracture. CXR IMPRESSION: No active disease in the chest. C-SPINE CT IMPRESSION: No evidence of acute fracture or traumatic subluxation. Code Status & VTE Plan Code Status Patient is a full code as per my discussion with him and his daughter who is at the bedside. VTE Prophylaxis Plan VTE Prophylaxis will be ordered: Yes Supervising Physician Co-Signing Physician Notes Attending Addendum: care coordinated with GEETA bunch please refer to her notes for full details, I agree with her notes patient seen and examined, records reviewed by myself as well on exam, patient seen resting in bed, sleeping but easily awakened, comfortable, in good spirits States he feels improved compared to admission, right hip discomfort improving but worse with movement Denies headache, neck pain, dizziness, shortness of breath, chest pain, abdominal pain Reports left testicular pain, intermittent, no dysuria, hematuria or any other urinary symptoms Denies any other pain in his body no other symptoms VS noted and reviewed oriented x 2, not in distress, speaks in sentences with no effort nor accessory muscle use normal rate, regular rhythm, no murmurs clear breath sounds bilaterally non distended, soft, nontender Positive no edema right hip area, no ecchymosis, no erythema, no warmth, positive moderate-severe tenderness no bipedal edema, erythema, warmth Genitalia: No scrotal edema, erythema, positive for mild tenderness left testicle, otherwise essentially normal exam no neuro deficits WBC 9.09 Hg 10.8 Crea 1.69 X-ray right hip/pelvis: Acute minimally displaced fracture of the greater trochanter of the right femur with possible nondisplaced component extending into the lesser trochanter. ASSESSMENT AND PLAN> ACUTE FRACTURE, GREATER TROCHANTER, RIGHT FEMUR Status post fall, secondary to leg weakness, likely deconditioning --Ortho service consulted, at this time leaning towards conservative management --Pain control scheduled Tylenol and tramadol, ice packs, Lidoderm patch, PT and OT evaluation HYPERTENSION --Likely secondary to pain, still not been able to take medications this morning --Denies headache, chest pain, shortness of breath, dizzy --Resume usual lisinopril, hydralazine, atenolol PRN hydralazine for systolic BP more than 160 other diagnoses and plan of care as per GEETA Manzo MD (1) Closed trochanteric fracture of femur Encounter type: initial encounter Laterality: right Qualified Code(s): S72.101A - Unspecified trochanteric fracture of right femur, initial encounter for closed fracture
--- NOTE | 2020-02-26 17:14 | Orthopedic Consultation ---
Date of Consultation February 26, 2020 Assessment & Plan (1) Periprosthetic fracture around internal prosthetic right hip joint: He has a small minimally displaced periprosthetic fracture of his right greater trochanter, adjacent to a well fixed right total hip arthroplasty without evidence of loosening or instability of the femoral component. This should not require any surgical intervention. I would recommend toe-touch weightbearing with a walker, and avoidance of active abduction of his right hip. He does complain of a lot of chronic right knee pain, and this may have been the reason for his fall. I would recommend x-rays of his right knee to ensure that he does not have any obvious injury or fracture there. I will place that order today. He should follow-up with Dr. Pires in 1 to 2 weeks after discharge. Please call [facility] at [phone] to sched ule an appointment. Present on Admission?: Yes History of Present Illness Reason for Consultation: Right hip periprosthetic fracture Requesting Physician: Pierre Peraza MD Attending Physician: Jonathan Manzo MD History of Present Illness Mr. Frederick is an 89-year-old male who had a fall onto his right hip yesterday at home. He originally had a right total hip arthroplasty done about 20 years ago in [place]. He then had problems with recurrent dislocations, and underwent a revision of his right total hip about 10 years ago in [place]. Based on his x-rays, looks like they put in a constrained liner. He says that he has been having pain in his right hip and entire right leg basically since that revision surgery. A lot of pain is in his knee, and he has previously been diagnosed with arthritis there. He has to use a walker due to this right knee, hip, and leg pain. He admits that he has had frequent falls due to this pain. He was turning while walking through his kitchen yesterday, and again had sharp pain in his right leg, which caused him to fall onto his right side. Allergies Allergy/AdvReac Type Severity Reaction Status Date / Time Iodinated Contrast Media Allergy Severe ANAPHALXIS Verified 02/26/20 12:53 nitrofurantoin Allergy Severe "throat Verified 02/26/20 12:53 swelled shut" clopidogrel Allergy Intermediate "flu s/s" Verified 02/26/20 12:53 Home Medications Home Medications Medication Instructions Recorded Confirmed Type Advair HFA 2 puff INHALATION BID 01/10/20 02/26/20 History I-Caps 1 cap PO DAILY 01/10/20 02/26/20 History albuterol sulfate 2.5 mg INHALATION BID 01/10/20 02/26/20 History albuterol sulfate [ProAir HFA] 2 puff INHALATION Q4 PRN 01/10/20 02/26/20 History allopurinol 100 mg PO QPM 01/10/20 02/26/20 History atenolol [Tenormin] 50 mg PO BID 01/10/20 02/26/20 History benzonatate [Tessalon Perles] 100 mg PO TID PRN 01/10/20 02/26/20 History diclofenac sodium [Voltaren] 4 g TOPICAL QID PRN 01/10/20 02/26/20 History duloxetine 30 mg PO QAM 01/10/20 02/26/20 History gabapentin [Neurontin] 100 mg PO HS 01/10/20 02/26/20 History hydralazine 100 mg PO BID 01/10/20 02/26/20 History lisinopril 10 mg PO QAM 01/10/20 02/26/20 History ondansetron HCl 4 mg PO Q6 PRN 01/10/20 02/26/20 History pantoprazole [Protonix] 40 mg PO BID 01/10/20 02/26/20 History polyethylene glycol 3350 [Miralax] 17 g PO DAILY PRN 01/10/20 02/26/20 History sucralfate [Carafate] 10 ml PO ACHS PRN 01/10/20 02/26/20 History tramadol [Ultram] 50 mg PO Q6 PRN 01/10/20 02/26/20 History triamcinolone acetonide [Nasacort] 2 spray INTRANASAL BID 01/10/20 02/26/20 History acetaminophen 1,000 mg PO Q6H PRN 02/26/20 02/26/20 History aspirin 81 mg PO DAILY 02/26/20 02/26/20 History Patient History Medical History (Updated 02/26/20 @ 17:22 by Roland Orellana M.D.) Anxiety Carotid artery stenosis (Chronic) Carpal tunnel syndrome on both sides (Chronic) CKD (chronic kidney disease), stage III GERD (gastroesophageal reflux disease) Gout (Chronic) HLD (hyperlipidemia) (Chronic) HTN (hypertension) (Chronic) Macular degeneration, bilateral (Chronic) Mild persistent asthma Prostate cancer (Resolved) "s/p prostatectomy" Renal artery stenosis (Chronic) "with B/L stent placement" Urinary retention (Acute) Surgical History History of back surgery (Resolved) S/P appendectomy (Resolved) S/P carotid endarterectomy (Resolved) "right" S/P cataract surgery (Resolved) "B/L" S/P cholecystectomy (Resolved) S/P partial gastrectomy (Resolved) "due to ulcers" S/P rotator cuff repair (Resolved) "left" S/P total hip arthroplasty (Resolved) "B/L, with revision on right" Social History Preferred Language: Italian Communication Ability: Effective Engagement Manager Required: No Beliefs That Will Affect Care: None Current Living Situation: Spouse Other Information That Helps Us Care for You: No Feels Safe at Home: Yes Safety Concerns: Feels Safe At This Time Smoking Status: Former smoker Tobacco Type: cigarettes ; Do You Dip or Chew Tobacco: No ; Second Hand Exposure: No ; Tobacco Cessation Education Requested by Patient: No Hx Alcohol Use: No Hx Substance Use: No Physical Exam Physical Exam: General: The patient appears well developed and well nourished. Awake, alert, and oriented x 3. Appropriate mood and affect. Gait and station not assessed due to the known hip fracture. Normal coordination and balance. Skin: The skin over the right hip shows 2 well-healed surgical incisions without evidence of infection. Inspection/Palpation: Visual inspection reveals no obvious deformity. There is mild swelling and tenderness to palpation of the thigh and hip area. Compartments are soft and compressible. Range of Motion: Hip range of motion is limited due to pain. Stability: Ligamentous stability was not tested due to the known fracture. Strength: Hip strength is limited due to pain. Intact ankle dorsiflexion and plantarflexion. Sensation: The patient reports no numbness in the leg. Vascular: Leg is warm and well perfused. No diffuse edema. Results & Data ([facility]) Vital Signs (Past 12 Hours) Vital Signs Temp Pulse Pulse Pulse Resp BP BP 02/26/20 16:29 37.1 C 66 18 195/78 H 02/26/20 16:20 36.7 C 61 18 219/93 H 02/26/20 14:48 36.7 C 18 219/93 H 02/26/20 14:46 78 02/26/20 13:30 60 18 195/76 H 02/26/20 13:01 58 L 15 180/78 H 02/26/20 12:32 58 L 16 201/84 H 02/26/20 12:11 60 20 199/87 H 02/26/20 11:21 58 L 15 190/80 H 02/26/20 10:08 36.9 C 65 16 184/96 H Pulse Ox 02/26/20 16:29 93 02/26/20 16:20 98 02/26/20 14:48 98 02/26/20 14:46 02/26/20 13:30 92 02/26/20 13:01 95 02/26/20 12:32 96 02/26/20 12:11 98 02/26/20 11:21 99 02/26/20 10:08 94 Diagnostic Findings New x-rays of the right hip were obtained today. Visualized are bilateral total hip arthroplasties. He has well fixed femoral and acetabular components in both. No evidence of hardware failure or loosening. Noted is a locking ring in the right hip, indicative of a constrained liner. The femoral component on the right is a fully coated diaphyseal fit component without evidence of loosening or fracture distally. He has a tiny nondisplaced fracture at the right greater trochanter, possibly extending over to the lesser trochanter, but no evidence of fracture extension distally down the shaft. Also noted on the x-rays are lumbosacral fusion hardware, as well as penile implants. (1) Periprosthetic fracture around internal prosthetic right hip joint Encounter type: initial encounter Qualified Code(s): M97.01XA - Periprosthetic fracture around internal prosthetic right hip joint, initial encounter
--- NOTE | 2020-02-26 17:52 | XRay Report ---
RIGHT KNEE 3 VIEWS HISTORY: Right knee pain s/p fall COMPARISON: None. FINDINGS: There is no fracture or dislocation. Small knee effusion. No significant soft tissue swelli ng. Vascular calcifications are noted. Mild tricompartmental osteoarthritis. No radiopaque foreign cuong dies. IMPRESSION: Small right knee effusion. No fractures. ACT 112: Negative or not required by law. Electronically signed by: Naveen Cheema M.D. 02/26/2020 5:51 PM
[2020-02-26] MEDS: ATENOLOL 50 MG TABLET PO SCH (17:53)
[2020-02-26] MEDS: HydrALAZINE TAB 50 MG TAB PO SCH (17:53)
[2020-02-26] MEDS: LIDOCAINE 5% 1 PATCH TD SCH (18:48)
--- NOTE | 2020-02-26 19:47 | Ultrasound Report ---
TESTICULAR ULTRASOUND HISTORY: left testicular tenderness COMPARISON: None. FINDINGS: Right testis: 4.4 x 2.5 x 2.2 cm. Heterogeneous echotexture. There are no intratesticular masses. Nor mal color flow. No hydrocele. The epididymis is unremarkable. Left testis: 4.2 x 2.3 x 3.1 cm. Heterogeneous echotexture. There are no intratesticular masses. Norm al color flow. No hydrocele. The epididymis is slightly thickened and hyperemic in comparison to the right. There are few scattered scrotoliths identified.. IMPRESSION: 1. Mildly thickened and hyperemic left epididymis. This favors an epididymitis. 2. Heterogeneous testes, likely age-related. No intratesticular masses. ACT 112: Negative or not required by law. Electronically signed by: Naveen Cheema M.D. 02/26/2020 7:45 PM
[2020-02-26] MEDS: HEPARIN SOD 5,000 UNIT/0.5 ML VIAL SQ SCH (20:51)
[2020-02-26] MEDS: PANTOprazole 40 MG TAB PO SCH (20:52)
[2020-02-26] MEDS: GABAPENTIN 100 MG CAP PO SCH (20:52)
[2020-02-26] MEDS: allopurinoL 100 MG TAB PO SCH (20:53)
[2020-02-26] MEDS: DOCUSATE SODIUM/SENNA 50/8.6MG TAB PO SCH (20:56)
[2020-02-26] MEDS: HydrALAZINE HCL 20 MG/ML VIAL IV PRN (21:02)
[2020-02-26] MEDS ORDERED: AMLODIPINE BESYLATE 5 MG TAB PO ONE (21:34)
[2020-02-26] MEDS ORDERED: HEPARIN SOD 5,000 UNIT/0.5 ML VIAL SQ SCH (22:00)
[2020-02-27] MEDS: ACETAMINOPHEN 325 MG TAB PO SCH ×4 (03:03→20:38)
[2020-02-27] MEDS: HydrALAZINE HCL 20 MG/ML VIAL IV PRN (04:25)
[2020-02-27 06:15] LABS: Hematocrit (blood only) 39.6 % (42-52); Hemoglobin 13.6 g/dL (14.0-18.0); Mean Corpuscular Hemoglobin 31.1 pg (25-34); Mean Corpuscular Hgb Conc 34.3 g/dL (32-36); Mean Corpuscular Volume 90.4 fL (80-100); Mean Platelet Volume 10.5 fL (7.4-10.4); Platelet Count 163 K/uL (130-400); RDW Coefficient of Variation 13.9 % (11.5-14.5); RDW Standard Deviation 46.6 fL (36.4-46.3); Red Blood Count 4.38 M/uL (4.7-6.1); White Blood Count 8.43 K/uL (4.8-10.8)
[2020-02-27 06:46] LABS: BUN Creatinine Ratio 19.4 (10-20); Calcium 8.7 mg/dl (8.5-10.1); Creatinine Clr Calc Pharmacy 42.9 ml/min; Est GFR (Non-African American) 45.7; Potassium 4.5 mmol/L (3.5-5.1)
[2020-02-27] MEDS: ASPIRIN 81 MG ECTAB PO SCH (09:00)
[2020-02-27] MEDS: DULOXETINE HCL 30 MG CAP PO SCH (09:01)
[2020-02-27] MEDS: PANTOprazole 40 MG TAB PO SCH ×2 (09:01→20:38)
[2020-02-27] MEDS: lisinopriL 10 MG TAB PO SCH (09:01)
[2020-02-27] MEDS: HydrALAZINE TAB 50 MG TAB PO SCH ×2 (09:01→20:37)
[2020-02-27] MEDS: ATENOLOL 50 MG TABLET PO SCH ×2 (09:01→20:39)
[2020-02-27] MEDS: TRAMADOL HCL 50 MG TABLET PO PRN (09:01)
[2020-02-27] MEDS: HEPARIN SOD 5,000 UNIT/0.5 ML VIAL SQ SCH ×2 (09:02→20:39)
[2020-02-27] MEDS: LIDOCAINE 5% 1 PATCH TD SCH ×2 (09:02→12:37)
[2020-02-27] MEDS: FLUTICASONE/VILANTEROL 100/25MCG 14 PUFFS/INHALER INH SCH (09:02)
[2020-02-27] MEDS: CEROVITE ADV FORMULA TAB PO SCH (09:04)
--- NOTE | 2020-02-27 10:24 | Orthopedic Progress Note ---
Date of Service February 27, 2020 Assessment & Plan (1) Periprosthetic fracture around internal prosthetic right hip joint: As per Dr. Orellana's recommendations, NWB to the RLE at this time. No surgical intervention at this time. Walker for ambulation. Right knee fillm showing no fx's. No severe Djd. Small effusion. Gentle ROM as able. Follow up with Dr. Pires 10 to 14 days for recheck. Pt would be a good candidate for Rehab. Admission and Anticipated Discharge Date Admission Date: February 26, 2020 Subjective Pt sitting up in chair at bedside. States his hip his comfortable at rest but gets fairly painful with movement. His right knee is not that painful this AM. No other complaints at this time. Pt states he would like to go to [facility] in [place] if possible. Physical Exam Physical Exam: Pt sitting in chair at bedside. Hip with not a lot of pain at this time. Minimal tenderness on palpation. Right knee is not overtly swollen at this time. No erythema or heat noted. Results & Data ([facility]) Vital Signs (Past 12 Hours) Vital Signs Temp Pulse Pulse Resp BP Pulse Ox 02/27/20 09:09 154/70 H 02/27/20 07:32 71 02/27/20 07:09 36.9 C 70 18 181/71 H 93 02/27/20 04:13 36.8 C 70 20 185/67 H 91 02/26/20 22:41 36.8 C 74 18 199/65 H 93 02/26/20 22:30 70 Diagnostic Findings RIGHT KNEE 3 VIEWS HISTORY: Right knee pain s/p fall COMPARISON: None. FINDINGS: There is no fracture or dislocation. Small knee effusion. No significant soft tissue swelling. Vascular calcifications are noted. Mild tricompartmental osteoarthritis. No radiopaque foreign bodies. IMPRESSION: Small right knee effusion. No fractures. (1) Periprosthetic fracture around internal prosthetic right hip joint Encounter type: initial encounter Qualified Code(s): M97.01XA - Periprosthetic fracture around internal prosthetic right hip joint, initial encounter
[2020-02-27] MEDS ORDERED: cefTRIAXone SODIUM 2,000 MG in DEXTROSE 5% 50 ML IV SCH (12:00)
[2020-02-27] MEDS ORDERED: cefTRIAXone SODIUM 1,000 MG in DEXTROSE 5% 50 ML IV SCH (12:00)
--- NOTE | 2020-02-27 12:00 | Orthopedic Progress Note ---
Date of Service February 27, 2020 Assessment & Plan (1) Periprosthetic fracture around internal prosthetic right hip joint: As per Dr. Orellana's recommendations, NWB to the RLE at this time. No surgical intervention at this time. Walker for ambulation. Right knee film showing no fx's. No severe Djd. Small effusion. Gentle ROM as able. Follow up with Dr. Pires 10 to 14 days for recheck. Pt would be a good candidate for Rehab. Discussed with Dr. Hatch. Admission and Anticipated Discharge Date Admission Date: February 26, 2020 Subjective Pt sitting in chair at bedside. Awake. Alert. C/O right hip pain when getting in and out of bed. Comfortable at rest. States he feels tired since he has been here. He is worried about using his walker and states he has a feeling at times that he is falling backwards but not always when using his walker. No other complaints currently. Physical Exam Physical Exam: Right hip with mild pain with palpation laterally. Right knee currently not hurting him. No overt effusion. Results & Data ([facility]) Vital Signs (Past 12 Hours) Vital Signs Temp Pulse Pulse Resp BP BP Pulse Ox 02/27/20 11:35 36.4 C L 59 L 18 127/66 96 02/27/20 09:09 154/70 H 02/27/20 07:32 71 02/27/20 07:09 36.9 C 70 18 181/71 H 93 02/27/20 04:13 36.8 C 70 20 185/67 H 91 Diagnostic Findings RIGHT KNEE 3 VIEWS HISTORY: Right knee pain s/p fall COMPARISON: None. FINDINGS: There is no fracture or dislocation. Small knee effusion. No significant soft tissue swelling. Vascular calcifications are noted. Mild tricompartmental osteoarthritis. No radiopaque foreign bodies. IMPRESSION: Small right knee effusion. No fractures. (1) Periprosthetic fracture around internal prosthetic right hip joint Encounter type: initial encounter Qualified Code(s): M97.01XA - Periprosthetic fracture around internal prosthetic right hip joint, initial encounter
[2020-02-27] MEDS ORDERED: ONDANSETRON INJ 2 MG/ML 2 ML VIAL IV PRN (12:19)
[2020-02-27] MEDS: cefTRIAXone SODIUM 2,000 MG in DEXTROSE 5% 50 ML IV SCH (12:38)
[2020-02-27 13:09] LABS: Appearance Urine Clear (Clear); Bacteria Urine Automated Negative (Negative); Bilirubin Urine Negative (Negative); Blood Urine Negative (Negative); Color Urine Dark Yellow; Glucose Urine UA Negative (Negative); Ketones Urine 1+ (Negative); Leukocyte Esterase Urine Negative (Negative); Nitrite Urine Negative (Negative); Protein Urine Trace (Negative); RBC Urine Automated 0-4 /hpf (0-4); Specific Gravity Urine 1.017 (1.000-1.030); Urobilinogen Urine Negative (Negative); pH Urine 5.5 (4.5-7.5)
--- NOTE | 2020-02-27 16:20 | Hospitalist Progress Note ---
Date of Service February 27, 2020 Assessment & Plan (1) Closed trochanteric fracture of femur: -patient presenting from home after having a mechanical fall -in the ED, patient found to have acute minimally displaced fracture of the greater trochanter of the right femur with possible nondisplaced component extending into the lesser trochanter -pain control with scheduled Tylenol and PRN Tramadol and Morphine -ortho consulted, case discussed with Edy Chandler PA-C; plan for non operative management at this time; toe touch weight bearing and abduction precautions - pt complained of R knee pain as well, evaluated by ortho and Xray obtained to r/o any obvious knee injury - negative - follow-up with Dr. Pires in 1 to 2 weeks after discharge. Please call [facility] at [phone] to schedule an appointment -PT/OT eval - plan for rehab, pt interested in [facility] [place] (2) HTN (hypertension): -BP elevated, poss.due to pain -continue home meds atenolol, hydralazine, and lisinopril -PRN IV Hydralazine - currently BP better controlled - cont. to monitor, adjust medications as needed (3) CKD (chronic kidney disease), stage III: NATTY on CKD - baseline creat runs in the mid 1's - creat noted to be 1.69 yesterday, now back to baseline (1.3) - continue to monitor, avoid nephrotoxic agents when able Left testicular pain d/t epididymitis, likely secondary to recent UTI Scrotal US obtained, c/w L epididymitis - pain comes and goes, currently does not bother the pt - recent hx of E. coli UTI, pansensitive - no hx of urethral drainage, hematuria - will obtain UA to look for resolution of infection - will start ceftriaxone - will adjust Abx as needed, depending on results of UA/ Ucltx (4) Gout: -continue allopurinol (5) Mild persistent asthma: -no signs of acute exacerbation -continue home inhalers (6) Anxiety: -continue duloxetine (7) GERD (gastroesophageal reflux disease): -continue PPI (8) DVT prophylaxis: -SQ Heparin Admission and Anticipated Discharge Date Admission Date: February 26, 2020 Subjective Pt is lying in bed, in NAD. Denies any chest pain, shortness of breath, abd. pain, nausea or vomiting. Reports knee pain, which was evaluated by ortho, Xray obtained and negative for any fracture. Previously pt was complaining of scrotal pain, admitting physician obtained scrotal US which is c/w epididymitis, pt reports pain comes and goes, currently is not bothering him. Recent hx of E. coli UTI - will obtain UA, and start ceftriaxone Pt inquiring about going to [facility] [place]. Review of Systems Review of Systems: All systems reviewed & are unremarkable except as noted in HPI & below Constitutional: no fever and no chills Respiratory: no cough and no dyspnea Cardiovascular: no chest pain and no palpitations Gastrointestinal: no abdominal pain, no nausea and no vomiting Physical Exam Physical Exam: Constitutional: elderly male lying in bed in NAD, WD/WN, vitals as above Eyes: PERRL, conjunctivae normal, anicteric sclerae ENMT: external ear and nose normal, oropharynx normal Respiratory: normal respiratory effort; no respiratory distress, some occasional coarse breath sounds otherwise CTAB Cardiovascular: Rate/Rhythm: regular rate and regular rhythm Vessels: normal peripheral pulses Extremities: no edema Gastrointestinal (Abdomen): normal bowel sounds, soft, nontender to palp. Musculoskeletal: no cyanosis or clubbing, extremities motor strength 5/5 right hip pain with minimal movement of the RLE. CSM checks intact to RLE. R knee pain, no edema or erythema Skin: no rashes, warm and dry Neurologic: PERRL, EOMI, accommodation nl, no face palsy, no dysarthria Psychiatric: A+Ox3, euthymic affect Results & Data Results & Data ([place]) Vital Signs (Past 12 Hours) Vital Signs Temp Pulse Pulse Resp BP BP Pulse Ox 02/27/20 15:39 36.6 C 60 18 155/69 H 94 02/27/20 11:35 36.4 C L 59 L 18 127/66 96 02/27/20 09:09 154/70 H 02/27/20 07:32 71 02/27/20 07:09 36.9 C 70 18 181/71 H 93 Laboratory Results 02/27/20 02/27/20 02/27/20 Range/Units 12:50 06:06 06:06 WBC (4.8-10.8) K/uL RBC (4.7-6.1) M/uL Hgb (14.0-18.0) g/dL Hct (42-52) % MCV (80-100) fL MCH (25-34) pg MCHC (32-36) g/dL RDW Std Deviation (36.4-46.3) fL RDW Coeff of Van (11.5-14.5) % Plt Count (130-400) K/uL MPV (7.4-10.4) fL Sodium 138 (136-145) mmol/L Potassium 4.5 (3.5-5.1) mmol/L Chloride 109 H (98-107) mmol/L Carbon Dioxide 24 (21-32) mmol/L Anion Gap 5.0 (3-11) BUN 27 H (7-18) mg/dl Creatinine 1.37 D (0.6-1.4) mg/dl Est Cr Clr Drug Dosing 42.9 ml/min Est GFR ( Amer) 53.0 Est GFR (Non-Af Amer) 45.7 BUN/Creatinine Ratio 19.4 (10-20) Glucose 83 (70-99) mg/dl Calcium 8.7 (8.5-10.1) mg/dl Magnesium 2.0 (1.8-2.4) mg/dl Urine Color Dark Yellow Urine Appearance Clear (Clear) Urine pH 5.5 (4.5-7.5) Ur Specific [place] 1.017 (1.000-1.030) Urine Protein Trace H (Negative) Urine Glucose (UA) Negative (Negative) Urine Ketones 1+ H (Negative) Urine Blood Negative (Negative) Urine Nitrite Negative (Negative) Urine Bilirubin Negative (Negative) Urine Urobilinogen Negative (Negative) Ur Leukocyte Esterase Negative (Negative) Urine WBC (Auto) 1-5 (0-5) /hpf Urine RBC (Auto) 0-4 (0-4) /hpf U Hyaline Cast (Auto) 1-5 (0-5) /lpf U Epithel Cells (Auto) 5-10 H (0-5) /lpf Urine Bacteria (Auto) Negative (Negative) 02/27/20 Range/Units 06:06 WBC 8.43 (4.8-10.8) K/uL RBC 4.38 L (4.7-6.1) M/uL Hgb 13.6 L (14.0-18.0) g/dL Hct 39.6 L (42-52) % MCV 90.4 (80-100) fL MCH 31.1 (25-34) pg MCHC 34.3 (32-36) g/dL RDW Std Deviation 46.6 H (36.4-46.3) fL RDW Coeff of Van 13.9 (11.5-14.5) % Plt Count 163 (130-400) K/uL MPV 10.5 H (7.4-10.4) fL Sodium (136-145) mmol/L Potassium (3.5-5.1) mmol/L Chloride (98-107) mmol/L Carbon Dioxide (21-32) mmol/L Anion Gap (3-11) BUN (7-18) mg/dl Creatinine (0.6-1.4) mg/dl Est Cr Clr Drug Dosing ml/min Est GFR ( Amer) Est GFR (Non-Af Amer) BUN/Creatinine Ratio (10-20) Glucose (70-99) mg/dl Calcium (8.5-10.1) mg/dl Magnesium (1.8-2.4) mg/dl Urine Color Urine Appearance (Clear) Urine pH (4.5-7.5) Ur Specific [place] (1.000-1.030) Urine Protein (Negative) Urine Glucose (UA) (Negative) Urine Ketones (Negative) Urine Blood (Negative) Urine Nitrite (Negative) Urine Bilirubin (Negative) Urine Urobilinogen (Negative) Ur Leukocyte Esterase (Negative) Urine WBC (Auto) (0-5) /hpf Urine RBC (Auto) (0-4) /hpf U Hyaline Cast (Auto) (0-5) /lpf U Epithel Cells (Auto) (0-5) /lpf Urine Bacteria (Auto) (Negative) Diagnostic Findings Scrotal US FINDINGS: Right testis: 4.4 x 2.5 x 2.2 cm. Heterogeneous echotexture. There are no intratesticular masses. Normal color flow. No hydrocele. The epididymis is unremarkable. Left testis: 4.2 x 2.3 x 3.1 cm. Heterogeneous echotexture. There are no intratesticular masses. Normal color flow. No hydrocele. The epididymis is slightly thickened and hyperemic in comparison to the right. There are few scattered scrotoliths identified.. IMPRESSION: 1. Mildly thickened and hyperemic left epididymis. This favors an epididymitis. 2. Heterogeneous testes, likely age-related. No intratesticular masses. Medications Administered Current Inpatient Medications Acetaminophen (Tylenol) 650 mg PO Q6H [facility] Stop: 03/27/20 14:59 Last Admin: 02/27/20 14:42 Dose: 650 mg Documented by: Allopurinol (Zyloprim) 100 mg PO QPM [facility] Stop: 03/27/20 20:59 Last Admin: 02/26/20 20:53 Dose: 100 mg Documented by: Aspirin (Ecotrin Ectab) 81 mg PO DAILY [facility] Stop: 03/28/20 08:59 Last Admin: 02/27/20 09:00 Dose: 81 mg Documented by: Atenolol (Tenormin) 50 mg PO BID [facility] Stop: 03/27/20 20:59 Last Admin: 02/27/20 09:01 Dose: 50 mg Documented by: Bisacodyl (Dulcolax) 10 mg OR DAILY PRN PRN Reason: Constipation Stop: 03/27/20 14:59 Duloxetine HCl (Cymbalta) 30 mg PO QAM [facility] Stop: 03/28/20 08:59 Last Admin: 02/27/20 09:01 Dose: 30 mg Documented by: Fluticasone/Vilanterol (Breo Ellipta 100/25 Mcg Inh) 1 puffs INH DAILY [facility]; Protocol Stop: 03/28/20 08:59 Last Admin: 02/27/20 09:02 Dose: 1 puffs Documented by: Gabapentin (Neurontin) 100 mg PO HS [facility] Stop: 03/27/20 20:59 Last Admin: 02/26/20 20:52 Dose: 100 mg Documented by: Heparin Sodium (Porcine) (Heparin Sodium (Porcine)) 5,000 units SQ Q12 [facility] Stop: 03/27/20 20:59 Last Admin: 02/27/20 09:02 Dose: 5,000 units Documented by: Hydralazine HCl (Apresoline) 100 mg PO BID [facility] Stop: 03/27/20 20:59 Last Admin: 02/27/20 09:01 Dose: 100 mg Documented by: Hydralazine HCl (Hydralazine Hcl) 10 mg IV Q6H PRN PRN Reason: hypertension Stop: 03/27/20 15:02 Last Admin: 02/27/20 04:25 Dose: 10 mg Documented by: Ceftriaxone Sodium 2,000 mg/ (Dextrose) 70 mls @ 140 mls/hr IV Q24H [facility] Stop: 03/08/20 11:59 Last Infusion: 02/27/20 14:00 Dose: Infused Documented by: Lidocaine (Lidoderm 5%) 1 patch TD QAM [facility] Stop: 03/27/20 17:59 Last Admin: 02/27/20 12:37 Dose: Not Given Documented by: Lisinopril (Zestril) 10 mg PO QAM [facility] Stop: 03/28/20 08:59 Last Admin: 02/27/20 09:01 Dose: 10 mg Documented by: Magnesium Hydroxide (Milk Of Magnesia) 30 ml PO DAILY PRN PRN Reason: Constipation Stop: 03/27/20 14:59 Miscellaneous (Remove Lidoderm Patch) 1 ea N/A DAILY@2100 [facility] Stop: 03/27/20 20:59 Last Admin: 02/26/20 20:52 Dose: 1 ea Documented by: Morphine Sulfate (Morphine Sulfate) 2 mg IV Q4H PRN PRN Reason: Severe Pain Stop: 03/11/20 14:59 Multivitamins/Minerals (Multivitamin W/ Minerals Tab) 1 tab PO DAILY [facility] Stop: 03/28/20 08:59 Last Admin: 02/27/20 09:04 Dose: Not Given Documented by: Naloxone HCl (Narcan) 0.1 mg IV UD PRN PRN Reason: Opiate Overdose Stop: 03/27/20 14:59 Ondansetron HCl (Zofran) 4 mg IV ONCE PRN PRN Reason: Nausea Stop: 03/28/20 12:18 Last Admin: 02/27/20 12:38 Dose: 4 mg Documented by: Pantoprazole Sodium (Protonix) 40 mg PO BID [facility] Stop: 03/27/20 20:59 Last Admin: 02/27/20 09:01 Dose: 40 mg Documented by: Senna/Docusate Sodium (Senokot S) 2 tab PO HS [facility] Stop: 03/27/20 20:59 Last Admin: 02/26/20 20:56 Dose: 2 tab Documented by: Tramadol HCl (Ultram) 50 mg PO Q6 PRN PRN Reason: Pain Stop: 03/27/20 15:00 Last Admin: 02/27/20 09:01 Dose: 50 mg Documented by: (1) Closed trochanteric fracture of femur Encounter type: initial encounter Laterality: right Qualified Code(s): S72.101A - Unspecified trochanteric fracture of right femur, initial encounter for closed fracture
[2020-02-27] MEDS: DOCUSATE SODIUM/SENNA 50/8.6MG TAB PO SCH (20:37)
[2020-02-27] MEDS: allopurinoL 100 MG TAB PO SCH (20:38)
[2020-02-27] MEDS: GABAPENTIN 100 MG CAP PO SCH (20:38)
[2020-02-28] MEDS: ACETAMINOPHEN 325 MG TAB PO SCH ×4 (02:35→20:24)
[2020-02-28] MEDS ORDERED: ALBUT/IPRATROP 3MG/0.5MG NEB 3 ML VIAL NEB STA (02:47)
[2020-02-28] MEDS ORDERED: ALBUT/IPRATROP 3MG/0.5MG NEB 3 ML VIAL NEB PRN (02:49)
--- NOTE | 2020-02-28 06:44 | XRay Report ---
XR chest 1V portable CLINICAL HISTORY: 89 years-old Male presenting with congestion. TECHNIQUE: Portable upright AP view of the chest was obtained. COMPARISON: 02/26/2020. FINDINGS: Atherosclerosis of the aortic arch. Cardiac silhouette borderline enlarged. Elevation of the right he midiaphragm as on prior exam. A deep lateral right costophrenic sulcus is noted without evidence of a pneumothorax. Minimal left basilar opacity. No other focal opacity. No large effusion. Degenerative changes of the thoracic spine. Upper abdomen normal. IMPRESSION: 1. Minimal left basilar opacities likely atelectasis or scarring. No convincing evidence of acute ca rdiopulmonary disease. ACT 112: Negative or not required by law. Electronically signed by: Vlad Dumont M.D. 02/28/2020 6:43 AM
[2020-02-28] MEDS: lisinopriL 10 MG TAB PO SCH (08:17)
[2020-02-28] MEDS: DULOXETINE HCL 30 MG CAP PO SCH (08:17)
[2020-02-28] MEDS: HydrALAZINE TAB 50 MG TAB PO SCH ×2 (08:17→20:26)
[2020-02-28] MEDS: ASPIRIN 81 MG ECTAB PO SCH (08:18)
[2020-02-28] MEDS: LIDOCAINE 5% 1 PATCH TD SCH (08:18)
[2020-02-28] MEDS: ATENOLOL 50 MG TABLET PO SCH (08:18)
[2020-02-28] MEDS: HEPARIN SOD 5,000 UNIT/0.5 ML VIAL SQ SCH ×2 (08:18→20:24)
[2020-02-28] MEDS: PANTOprazole 40 MG TAB PO SCH ×2 (08:18→20:26)
[2020-02-28] MEDS: CEROVITE ADV FORMULA TAB PO SCH (08:19)
[2020-02-28] MEDS: FLUTICASONE/VILANTEROL 100/25MCG 14 PUFFS/INHALER INH SCH (08:22)
[2020-02-28] MEDS: cefTRIAXone SODIUM 2,000 MG in DEXTROSE 5% 50 ML IV SCH (12:03)
--- NOTE | 2020-02-28 16:33 | Hospitalist Progress Note ---
Date of Service February 28, 2020 Assessment & Plan (1) Closed trochanteric fracture of femur: -patient presented from home after having a mechanical fall X-ray of hip shows acute minimally displaced fracture of the greater trochanter of the right femur with possible nondisplaced component extending into the lesser trochanter -pain well control with scheduled Tylenol and PRN Tramadol and Morphine -ortho consulted, appreciate input ; recommends non operative management ; toe touch weight bearing and abduction precautions -follow-up with Dr. Pires in 1 to 2 weeks after discharge. will need rehab (2) HTN (hypertension): -BP stable -continue home meds atenolol, hydralazine, and lisinopril - (3) CKD (chronic kidney disease), stage III: NATTY on CKD - resolved - creat noted to be 1.69 now back to baseline (1.3) - continue to monitor, avoid nephrotoxic agents when able Left testicular pain d/t epididymitis, likely secondary to recent UTI Scrotal US obtained, c/w L epididymitis - - recent hx of E. coli UTI, pansensitive - no hx of urethral drainage, hematuria -UA negative was on Rocephin Abx changed to PO Cipro needs# 7 days tx (4) Gout: -continue allopurinol (5) Mild persistent asthma: -no signs of acute exacerbation -continue home inhalers (6) Anxiety: -continue duloxetine (7) GERD (gastroesophageal reflux disease): -continue PPI (8) DVT prophylaxis: -SQ Heparin DISPOSITION : plan to tx to SNF tomorrow referral made for [facility] Admission and Anticipated Discharge Date Admission Date: February 26, 2020 Subjective Patient reports of ongoing pain on the right hip/back No other complaint, Denies of any urinary urgency/frequency, no other symptoms Has been afebrile Review of Systems Review of Systems: All systems reviewed & are unremarkable except as noted in HPI & below Genitourinary: no dysuria, no urinary hesitancy, no hematuria and no flank pain Physical Exam Constitutional: WD/WN, vitals as above Eyes: PERRL, conjunctivae normal, anicteric sclerae ENMT: external ear and nose normal, oropharynx normal Neck: trachea midline, no thyromegaly Respiratory: normal respiratory effort, lungs clear to auscultation Cardiovascular: RRR, no murmur, no edema Gastrointestinal (Abdomen): normal bowel sounds, soft, nontender, no hepatosplenomegaly Neurologic: PERRL, EOMI, accommodation nl, no face palsy, no dysarthria Psychiatric: Orientation: alert Oriented to person/place Results & Data Results & Data ([facility]) Vital Signs (Past 12 Hours) Vital Signs Temp Pulse Pulse Resp BP BP Pulse Ox 02/28/20 15:16 37.0 C 61 20 148/70 H 94 02/28/20 14:48 67 02/28/20 11:56 36.9 C 58 L 20 160/70 H 94 02/28/20 07:00 58 L 02/28/20 06:53 36.7 C 64 18 164/84 H 92 (1) Closed trochanteric fracture of femur Encounter type: initial encounter Laterality: right Qualified Code(s): S72.101A - Unspecified trochanteric fracture of right femur, initial encounter for closed fracture
[2020-02-28] MEDS: TRAMADOL HCL 50 MG TABLET PO PRN (17:51)
[2020-02-28] MEDS: METOPROLOL TARTRATE 25 MG TAB PO SCH (17:52)
[2020-02-28] MEDS: GABAPENTIN 100 MG CAP PO SCH (20:26)
[2020-02-28] MEDS: allopurinoL 100 MG TAB PO SCH (20:27)
[2020-02-28] MEDS: DOCUSATE SODIUM/SENNA 50/8.6MG TAB PO SCH (20:31)
[2020-02-29] MEDS: HydrALAZINE HCL 20 MG/ML VIAL IV PRN ×2 (03:07→11:15)
[2020-02-29] MEDS: ACETAMINOPHEN 325 MG TAB PO SCH ×3 (03:10→14:33)
[2020-02-29] MEDS: FLUTICASONE/VILANTEROL 100/25MCG 14 PUFFS/INHALER INH SCH (08:11)
[2020-02-29] MEDS: HydrALAZINE TAB 50 MG TAB PO SCH (08:11)
[2020-02-29] MEDS: DULOXETINE HCL 30 MG CAP PO SCH (08:12)
[2020-02-29] MEDS: ASPIRIN 81 MG ECTAB PO SCH (08:12)
[2020-02-29] MEDS: CEROVITE ADV FORMULA TAB PO SCH (08:13)
[2020-02-29] MEDS: METOPROLOL TARTRATE 25 MG TAB PO SCH (08:13)
[2020-02-29] MEDS: LIDOCAINE 5% 1 PATCH TD SCH (08:13)
[2020-02-29] MEDS: HEPARIN SOD 5,000 UNIT/0.5 ML VIAL SQ SCH (08:13)
[2020-02-29] MEDS: lisinopriL 10 MG TAB PO SCH (08:14)
[2020-02-29] MEDS: TRAMADOL HCL 50 MG TABLET PO PRN (08:14)
[2020-02-29] MEDS: PANTOprazole 40 MG TAB PO SCH (08:14)
[2020-02-29] MEDS ORDERED: CIPROFLOXACIN 250 MG TAB PO SCH (09:00)
--- NOTE | 2020-02-29 12:22 | Hospitalist Progress Note ---
Date of Service February 29, 2020 Assessment & Plan (1) Closed trochanteric fracture of femur: -patient presented from home after having a mechanical fall X-ray of hip shows acute minimally displaced fracture of the greater trochanter of the right femur with possible nondisplaced component extending into the lesser trochanter -ortho consulted, appreciate input ; recommends non operative management ; toe touch weight bearing and abduction precautions -follow-up with Dr. Pires in 1 to 2 weeks after discharge. PT OT evaluation appreciated, recommends rehab Stable to be transferred to rehab at [facility] today (2) HTN (hypertension): Blood pressure noted to be intermittently elevated Patient is on lisinopril, hydralazine 100 mg twice daily which has been continued Continue atenolol 50 mg twice daily (3) CKD (chronic kidney disease), stage III: NATTY on CKD - resolved - creat noted to be 1.69 now back to baseline (1.3) Left testicular pain d/t epididymitis, likely secondary to recent UTI Scrotal US obtained, c/w L epididymitis - - recent hx of E. coli UTI, pansensitive - no hx of urethral drainage, hematuria -UA negative was on Rocephin Abx changed to PO Cipro needs# 7 days tx (4) Gout: -continue allopurinol (5) Mild persistent asthma: -no signs of acute exacerbation -continue home inhalers (6) Anxiety: -continue duloxetine (7) GERD (gastroesophageal reflux disease): -continue PPI (8) DVT prophylaxis: -SQ Heparin DISPOSITION : stable to be transferred to [facility] today Admission and Anticipated Discharge Date Admission Date: February 26, 2020 Subjective Patient is very hard of hearing, Was able to be out of bed, with certified anesthesiologist assistant of physical therapist Scheduled to go to rehab at [facility] today Patient denies of any cough, no shortness of breath, no fever or chills Offers no complaint Review of Systems Review of Systems: All systems reviewed & are unremarkable except as noted in HPI & below Constitutional: no fever and no chills Respiratory: no cough, no dyspnea, no dyspnea on exertion, no sputum production and no wheezing Physical Exam Constitutional: WD/WN, vitals as above Eyes: PERRL, conjunctivae normal, anicteric sclerae ENMT: external ear and nose normal, oropharynx normal Neck: trachea midline, no thyromegaly Respiratory: normal respiratory effort, lungs clear to auscultation Cardiovascular: RRR, no murmur, no edema Gastrointestinal (Abdomen): normal bowel sounds, soft, nontender, no hepatosplenomegaly Neurologic: PERRL, EOMI, accommodation nl, no face palsy, no dysarthria Psychiatric: Orientation: alert Results & Data Results & Data ([facility]) Vital Signs (Past 12 Hours) Vital Signs Temp Pulse Pulse Resp BP BP Pulse Ox 02/29/20 12:13 61 147/63 H 02/29/20 11:46 36.5 C 68 18 157/76 H 96 02/29/20 11:13 36.6 C 62 20 208/67 H 96 02/29/20 07:30 36.7 C 72 18 183/68 H 99 02/29/20 07:27 82 02/29/20 03:43 60 02/29/20 03:01 36.7 C 66 18 190/70 H 97 (1) Closed trochanteric fracture of femur Encounter type: initial encounter Laterality: right Qualified Code(s): S72.101A - Unspecified trochanteric fracture of right femur, initial encounter for closed fracture
[2020-02-29] MEDS ORDERED: CIPROFLOXACIN 250 MG TAB PO ONE (13:30)
--- NOTE | 2020-02-29 19:02 | Discharge Summary ---
Date of Service February 29, 2020 Admission HPI Per Admitting Provider 89 year old male who presents to the ED with reports of right hip pain. Patient reports that yesterday morning he was in the kitchen trying to get something to drink when his right leg gave out from under him and he fell to the ground. Patient reports ongoing right hip pain and ambulatory dysfunction for the past several years. Patient's pain was much worsened after his fall and then presented to the ED for evaluation. Patient reports he otherwise has been feeling well recently. Denies any loss of consciousness or striking his head with the fall. No chest pain or shortness of breath. Has a chronic cough which is unchanged from baseline. No abdominal pain, nausea, vomiting, or diarrhea. Denies fever and chills. No urinary symptoms. In the ED, patient is found to have acute minimally displaced fracture of the greater trochanter of the right femur. Labs are unremarkable / at baseline. BP is elevated, vitals otherwise stable. Patient was given IVF and IV morphine. Principal Diagnosis FALL RIGHT HIP PERIPROSTHETIC FRACTURE EPIDIDYMITIS Discharge Exam Constitutional WD/WN, vitals as above Eyes PERRL, conjunctivae normal, anicteric sclerae ENMT external ear and nose normal, oropharynx normal Neck trachea midline, no thyromegaly Respiratory normal respiratory effort, lungs clear to auscultation Cardiovascular RRR, no murmur, no edema Gastrointestinal (Abdomen) normal bowel sounds, soft, nontender, no hepatosplenomegaly Neurologic PERRL, EOMI, accommodation nl, no face palsy, no dysarthria Psychiatric Orientation: alert Discharge Data Allergies Allergy/AdvReac Type Severity Reaction Status Date / Time Iodinated Contrast Media Allergy Severe ANAPHALXIS Verified 02/26/20 12:53 nitrofurantoin Allergy Severe "throat Verified 02/26/20 12:53 swelled shut" clopidogrel Allergy Intermediate "flu s/s" Verified 02/26/20 12:53 Consultations 02/26/20 12:20 ED Decision to Admit Stat 02/26/20 14:48 Consult Case Management - Discharge Planning Routine Consult Orthopedic Surgery Routine Ordered Studies 02/26/20 10:35 CT cervical spine wo con Stat CT head/brain wo con Stat 02/26/20 17:38 US scrotum/testicle Routine Hospital Course (1) Closed trochanteric fracture of femur: -patient presented from home after having a mechanical fall X-ray of hip shows acute minimally displaced fracture of the greater trochanter of the right femur with possible nondisplaced component extending into the lesser trochanter -ortho consulted, appreciate input ; recommends non operative management ; toe touch weight bearing and abduction precautions -follow-up with Dr. Pires in 1 to 2 weeks after discharge. PT OT evaluation appreciated, recommends rehab Stable to be transferred to rehab at [facility] today (2) HTN (hypertension): Blood pressure noted to be intermittently elevated Patient is on lisinopril, hydralazine 100 mg twice daily which has been continued Continue atenolol 50 mg twice daily (3) CKD (chronic kidney disease), stage III: NATTY on CKD - resolved - creat noted to be 1.69 now back to baseline (1.3) Left testicular pain d/t epididymitis, likely secondary to recent UTI Scrotal US obtained, c/w L epididymitis - - recent hx of E. coli UTI, pansensitive - no hx of urethral drainage, hematuria -UA negative was on Rocephin Abx changed to PO Cipro needs# 7 days tx (4) Gout: -continue allopurinol (5) Mild persistent asthma: -no signs of acute exacerbation -continue home inhalers (6) Anxiety: -continue duloxetine (7) GERD (gastroesophageal reflux disease): -continue PPI (8) DVT prophylaxis: -SQ Heparin DISPOSITION : stable to be transferred to [facility] today Total Time Total Time Spent Total Time Spent (In Minutes): 35 minutes Total Time Includes: Examination of the Patient, Discharge Planning and Medication Reconciliation Discharge Plan Discharge Items Patient Disposition: Transfer [facility] Fac Reason For Visit: RIGHT HIP FRACTURE Discharge Diagnosis: FALL RIGHT HIP PERIPROSTHETIC FRACTURE EPIDIDYMITIS Activity: As commented below Activity Comment: Continue physical therapy/occupational therapy at rehab Weightbearing: Right toe touch Weightbearing Comment: with walker Non-emergency contact: Primary Care Provider Call non-emergency contact if: you have any medication questions Follow-up/Referrals: Ninfa Philip MD [Primary Care Provider] - Diet: Heart Healthy Addtl Attending Provider Instructions: Complete antibiotic ciprofloxacin 500 mg 1 tablet twice daily for 5 MORE DAYS for epididymitis Do not take NSAID's : high dose Aspirin (ok with low dose 81 mg daily aspirin ) Aleve, Advil, Motrin, ibuprofen, naproxen, this is a group of [id number] pain medication can cause worsening of your kidney failure Addtl [employer] Provider Instructions: Continue to maintain toe touch weight bearing (foot down for balance only) on the Right leg/foot. Ice pack to right hip as needed. Follow up with Dr Pires at [facility] in 2 weeks. Please call for an appointment. [phone] Pending Studies at Discharge: No Stand-Alone Forms: My [facility] Skilled Items Patient informed of condition?: Yes DNR: No Discharge Level of Care: Skilled Communicable Disease: No Discharge Prognosis: Stable Lines: None Urinary Catheter: No Medications and DC Order Prescriptions: New tramadol [Ultram] 50 mg tablet 50 mg PO Q6 PRN (Reason: Pain) Qty: 10 RF: 0 ciprofloxacin HCl 500 mg Tablet 500 mg PO BID 5 Days Qty: 10 RF: 0 Continued albuterol sulfate 2.5 mg /3 mL (0.083 %) solution for nebulization 2.5 mg inhalation BID RF: 0 polyethylene glycol 3350 [Miralax] 17 gram Powder In Packet 17 g PO DAILY PRN (Reason: Constipation) RF: 0 sucralfate [Carafate] 100 mg/mL Suspension 10 ml PO ACHS PRN (Reason: Acid Reflux) RF: 0 ondansetron HCl 4 mg tablet 4 mg PO Q6 PRN (Reason: Nausea) RF: 0 allopurinol 100 mg Tablet 100 mg PO QPM RF: 0 benzonatate [Tessalon Perles] 100 mg Capsule 100 mg PO TID PRN (Reason: Cough) RF: 0 hydralazine 100 mg tablet 100 mg PO BID RF: 0 pantoprazole [Protonix] 40 mg tablet,delayed release (DR/EC) 40 mg PO BID RF: 0 lisinopril 10 mg Tablet 10 mg PO QAM RF: 0 triamcinolone acetonide [Nasacort] 55 mcg aerosol,spray 2 spray INTRANASAL BID RF: 0 gabapentin [Neurontin] 100 mg capsule 100 mg PO HS RF: 0 albuterol sulfate [ProAir HFA] 90 mcg/actuation HFA aerosol inhaler 2 puff INHALATION Q4 PRN (Reason: Shortness Of Breath Or Wheezing) RF: 0 atenolol [Tenormin] 50 mg tablet 50 mg PO BID RF: 0 duloxetine 30 mg capsule,delayed release(DR/EC) 30 mg PO QAM RF: 0 Advair HFA 115-21 mcg/actuation HFA aerosol inhaler 2 puff INHALATION BID RF: 0 diclofenac sodium [Voltaren] 1 % Gel 4 g TOPICAL QID PRN (Reason: Pain) RF: 0 I-Caps 280-10-2 mg Capsule 1 cap PO DAILY RF: 0 acetaminophen 500 mg Tablet 1,000 mg PO Q6H PRN (Reason: Pain) RF: 0 aspirin 81 mg Tablet,Delayed Release (Dr/Ec) 81 mg PO DAILY RF: 0 Discharge Orders: Discharge Order (Routine); Ordered 02/29/20 Ordered By: Jelena Key Admission Data Admit Date/Time: 02/26/20 12:53 Attending Provider: Jelena Key Admit Provider: Jonathan Manzo Primary Care Provider: Ninfa Philip Other Providers: Jonathan Manzo ; Daniel Pires ; [facility] Other Interventions: Discharge Summary Assessment (RN) Last Done: 02/29/20 14:30 DC Date/Time DO NOT enter until pt leaves facility: 02/29/20 15:47
[2020-02-29] MEDS ORDERED: CIPROFLOXACIN 500 MG TAB PO SCH (21:00)
== END 2020-02-29 15:47 | DRG 560 ==
LOC: ED 10:18 → 2W 12:53 → SUATTDRO 12:53 → 2W 13:45